=== PATIENT | female | born 1960 | race African-American/Black ===

== ENCOUNTER 2018-11-27 08:59 | Inpatient (IN) | payer OTHER ==
[~2018-11-27] VITALS: Ht 152.4 cm; Wt 42.2 kg
[2018-11-27] VITALS (13 sets, daily range): BP systolic 137–185; BP diastolic 94–116
[2018-11-27] MEDS ORDERED: IV NORMAL SALINE 1000ML BAG 1,000 ML IV SCH ×2 (09:04→10:16)
[2018-11-27] MEDS ORDERED: ACETAMINOPHEN 650 MG SUPP.RECT. PR ONE (09:15)
[2018-11-27] MEDS ORDERED: IPRATRPIUM/ALBUTEROL 0.5/2.5MG 3 ML NEBU. NEB ONE (09:15)
[2018-11-27] MEDS ORDERED: methylPREDNISolone SOD SUCC PF 125 MG/2 ML VIAL. IV ONE (09:15)
[2018-11-27] MEDS ORDERED: IV NORMAL SALINE 1000ML BAG 1,000 ML IV ONE (09:15)
[2018-11-27 09:18] LABS: BASO # 0.1 x10^3/uL (0.0-0.2); BASO % 1 % (0-3); EOS % 0 % (0-3); HEMOGLOBIN 14.8 g/dL (12.0-15.5); LYMPH % 5 % (24-48); MEAN CORPUSCULAR HEMOGLOBIN 27 pg (25-35); MEAN CORPUSCULAR HGB CONC 33 g/dL (31-37); MEAN CORPUSCULAR VOLUME 82 fL (79-100); MONO # 0.8 x10^3/uL (0.0-1.1); MONO % 4 % (0-9); NEUT # 17.2 x10^3/uL (1.8-7.7); NEUT % 90 % (31-73); PLATELET COUNT 286 x10^3/uL (140-400); RED BLOOD COUNT 5.48 x10^6/uL (3.50-5.40); RED CELL DISTRIBUTION WIDTH 14.5 % (11.5-14.5); WHITE BLOOD COUNT 19.1 x10^3/uL (4.0-11.0)
[2018-11-27 09:21] LABS: BILIRUBIN,URINE NEGATIVE (NEG); CLARITY,URINE CLEAR; COLOR,URINE YELLOW; NITRITE,URINE NEGATIVE (NEG); PH,URINE 5.5; PROTEIN,URINE >=300 mg/dL (NEG-TRACE)
[2018-11-27 09:28] LABS: PROTHROMBIN TIME PATIENT 14.2 SEC (11.7-14.0)
[2018-11-27] MEDS ORDERED: VANCOMYCIN 1GM IVPB FOR OMNI 250 ML IV ONE (09:30)
[2018-11-27] MEDS ORDERED: PIPERACILLIN/TAZOBACTAM 3.375 GM in IV NORMAL SALINE 50ML 50 ML IV ONE (09:30)
[2018-11-27 09:31] LABS: CALCIUM 10.3 mg/dL (8.5-10.1); CREATININE 2.4 mg/dL (0.6-1.0); GFR 20.7
[2018-11-27 09:32] LABS: BASE EXCESS ABG -7 mmol/L (-3-3); CORRECTED PCO2 ABG 33 mmHg; CORRECTED PH ABG 7.34; CORRECTED PO2 ABG 113 mmHg; HCO3 ABG 16 mmol/L (21-28); PCO2 ABG 27 mmHg (35-46); PO2 ABG 87 mmHg (65-108); SAT O2 ABG 96 % (92-99)
[2018-11-27 09:33] LABS: FIO2 ABG 100%
[2018-11-27 09:38] LABS: ALBUMIN 3.7 g/dL (3.4-5.0); ALBUMIN/GLOBULIN RATIO 0.8 (1.0-1.7); TOTAL BILIRUBIN 0.5 mg/dL (0.2-1.0); TOTAL PROTEIN 8.4 g/dL (6.4-8.2)
[2018-11-27 09:42] LABS: AMORPHOUS SEDIMENT,UR PRESENT /HPF; BACTERIA,URINE FEW /HPF (0-FEW); SQUAMOUS EPITHELIAL CELL,UR FEW /LPF
[2018-11-27 09:44] LABS: HYALINE CASTS, URINE FEW /HPF
--- NOTE | 2018-11-27 09:54 | PHYS DOC ---
Past Medical History Past Medical History: CVA, Depression, Diabetes-Type II, High Cholesterol, Hypertension Additional Past Medical Histor: Hemiplegia, Hemiparesis, dysphagia, Past Surgical History: Other Additional Past Surgical Histo: unknown Alcohol Use: None Drug Use: None Adult General Chief Complaint Chief Complaint: FEVER HPI HPI Patient is a 58 year old female with history of CVA and right-sided hemiplegia and bed and wheelchair-bound who presents via EMS with altered level of consciousness. longterm reported that patient was not acting like her usual even she is almost nonverbal patient. EMS reported that patient had O2 sat of 70s that improved with the starting centimeter facial mask to 90s. Patient also had temperature of 103 subaxillary by EMS and GCS of 6 and tachycardia. Patient is not able to give history. Review of Systems Review of Systems Unable to obtain because of medical condition and nonverbal patient Current Medications Current Medications Current Medications Medications (Trade) Dose Ordered Sig/Ángel Start Time Stop Time Status Last Admin Dose Admin Acetaminophen (Tylenol Supp) 650 mg 1X ONCE 11/27/18 09:15 11/27/18 09:22 DC 11/27/18 09:34 650 MG Albuterol/ Ipratropium (Duoneb) 3 ml 1X ONCE 11/27/18 09:15 11/27/18 09:22 DC 11/27/18 10:46 3 ML Methylprednisolone Sodium Succinate (SOLU-Medrol 125MG VIAL) 125 mg 1X ONCE 11/27/18 09:15 11/27/18 09:22 DC 11/27/18 09:34 125 MG Sodium Chloride 1,000 ml @ 1,000 mls/hr 1X ONCE 11/27/18 09:15 11/27/18 10:14 DC 11/27/18 09:27 1,000 MLS/HR Allergies Allergies Allergies Coded Allergies Type Severity Reaction Last Updated Verified No Known Drug Allergies 11/27/18 No Physical Exam Physical Exam Constitutional: Moderate distress, febrile, does not follow commands or opening her eyes. [] HENT: Normocephalic, atraumatic, gag reflex is present, dry oropharynx . Eyes: PERRLA, EOMI, conjunctiva normal, no discharge. [] Neck: Normal range of motion, no tenderness, supple, no stridor. [] Cardiovascular: Tachycardia, no murmur [] Lungs & Thorax: Respiratory distress with bilateral coarse breath sounds and rhonchi Abdomen: Bowel sounds normal, soft, no tenderness, no masses, no pulsatile masses. [] Extremities: Left upper and lower extremity hemiplegia Neurologic: Unresponsive, responded to painful stimuli, gag reflex is present. Psychologic: Unresponsive, unable to evaluate. Current Patient Data Vital Signs Vital Signs Date Time Temp Pulse Resp B/P (MAP) Pulse Ox O2 Delivery O2 Flow Rate FiO2 11/27/18 09:28 146 24 182/108 (132) 100 Venturi Mask 15.0 11/27/18 09:11 106.1 106.1 Lab Values Laboratory Tests Test 11/27/18 09:04 11/27/18 09:07 11/27/18 09:12 O2 Saturation 96 % (92-99) Arterial Blood pH 7.40 (7.35-7.45) Arterial Blood pH (Temp corrected) 7.34 Arterial Blood pCO2 at Patient Temp 27 mmHg (35-46) L Arterial Blood pCO2 (Temp correct) 33 mmHg Arterial Blood pO2 at Patient Temp 87 mmHg (65-108) Arterial Blood pO2 (Temp corrected) 113 mmHg Arterial Blood HCO3 16 mmol/L (21-28) L Arterial Blood Base Excess -7 mmol/L (-3-3) L FiO2 100% White Blood Count 19.1 x10^3/uL (4.0-11.0) H Red Blood Count 5.48 x10^6/uL (3.50-5.40) H Hemoglobin 14.8 g/dL (12.0-15.5) Hematocrit 45.0 % (36.0-47.0) Mean Corpuscular Volume 82 fL (79-100) Mean Corpuscular Hemoglobin 27 pg (25-35) Mean Corpuscular Hemoglobin Concent 33 g/dL (31-37) Red Cell Distribution Width 14.5 % (11.5-14.5) Platelet Count 286 x10^3/uL (140-400) Neutrophils (%) (Auto) 90 % (31-73) H Lymphocytes (%) (Auto) 5 % (24-48) L Monocytes (%) (Auto) 4 % (0-9) Eosinophils (%) (Auto) 0 % (0-3) Basophils (%) (Auto) 1 % (0-3) Neutrophils # (Auto) 17.2 x10^3/uL (1.8-7.7) H Lymphocytes # (Auto) 1.0 x10^3/uL (1.0-4.8) Monocytes # (Auto) 0.8 x10^3/uL (0.0-1.1) Eosinophils # (Auto) 0.0 x10^3/uL (0.0-0.7) Basophils # (Auto) 0.1 x10^3/uL (0.0-0.2) Segmented Neutrophils % 60 % (35-66) Band Neutrophils % 32 % (0-9) H Lymphocytes % 4 % (24-48) L Monocytes % 4 % (0-10) Platelet Estimate Adequate (ADEQUATE) Large Platelets Few Ovalocytes Few Prothrombin Time 14.2 SEC (11.7-14.0) H Prothrombin Time INR 1.1 (0.8-1.1) Sodium Level 142 mmol/L (136-145) Potassium Level 4.0 mmol/L (3.5-5.1) Chloride Level 103 mmol/L (98-107) Carbon Dioxide Level 20 mmol/L (21-32) L Anion Gap 19 (6-14) H Blood Urea Nitrogen 22 mg/dL (7-20) H Creatinine 2.4 mg/dL (0.6-1.0) H Estimated GFR (Cockcroft-Gault) 20.7 BUN/Creatinine Ratio 9 (6-20) Glucose Level 239 mg/dL (70-99) H Lactic Acid Level 10.0 mmol/L (0.4-2.0) *H Calcium Level 10.3 mg/dL (8.5-10.1) H Magnesium Level 2.0 mg/dL (1.8-2.4) Total Bilirubin 0.5 mg/dL (0.2-1.0) Aspartate Amino Transferase (AST) 40 U/L (15-37) H Alanine Aminotransferase (ALT) 26 U/L (14-59) Alkaline Phosphatase 97 U/L (46-116) Creatine Kinase 607 U/L (26-192) H Troponin I Quantitative 4.148 ng/mL (0.000-0.055) ER-Raz-W-Type Natriuretic Peptide 94898 pg/mL (0-124) H Total Protein 8.4 g/dL (6.4-8.2) H Albumin 3.7 g/dL (3.4-5.0) Albumin/Globulin Ratio 0.8 (1.0-1.7) L Lipase 323 U/L (73-393) Urine Collection Type U cath Urine Color Yellow Urine Clarity Clear Urine pH 5.5 Urine Specific [place] 1.020 Urine Protein >=300 mg/dL (NEG-TRACE) Urine Glucose (UA) Negative mg/dL (NEG) Urine Ketones (Stick) Trace mg/dL (NEG) Urine Blood Large (NEG) Urine Nitrite Negative (NEG) Urine Bilirubin Negative (NEG) Urine Urobilinogen Dipstick 1.0 mg/dL (0.2 mg/dL) Urine Leukocyte Esterase Negative (NEG) Urine RBC 11-20 /HPF (0-2) Urine WBC 1-4 /HPF (0-4) Urine Squamous Epithelial Cells Few /LPF Urine Renal Epithelial Cells Few /LPF Urine Amorphous Sediment Present /HPF Urine Bacteria Few /HPF (0-FEW) Urine Hyaline Casts Few /HPF Urine Mucus Mod /LPF Laboratory Tests 11/27/18 09:07 Laboratory Tests 11/27/18 09:07 EKG EKG EKG interpreted by me. EKG at 0901 showed sinus tachycardia at rate of 147, left atrial abnormality, abnormal left axis deviation, LVH, Q waves in inferior leads, no acute ST and T-wave abnormalities Radiology/Procedures Radiology/Procedures [][facility] [address], [place] [id number] IMAGING REPORT Signed PATIENT: SALUD SEPULVEDA RACCOUNT: [id number] : 1960 LOCATION: [facility] ICU AGE: 58 SEX: F EXAM STATUS: ADM IN ORD. PHYSICIAN: RYAN FLORES MD REASON: altered level of consciousness, hypoxia PROCEDURE: PORTABLE CHEST 1V Examination: PORTABLE CHEST 1V History: Altered level consciousness, hypoxia Comparison/Correlation: None Findings: Portable supine frontal view chest was obtained. Heart size is borderline to slightly enlarged. Pulmonary vasculature is borderline. Left perihilar interstitial edema or possibly infiltrate noted. Right-sided aortic arch is evident. Bony structures are intact. Impression: Borderline perivascular congestion. Left. Hilar vascular congestion with interstitial edema or infiltrates. Consider follow-up two-view chest x-ray exam for further assessment. Right-sided aortic arch. Electronically signed by: Naren Noel MD (11/27/2018 10:10 AM) [facility] DICTATED and SIGNED BY: NAREN NOEL MD DATE: 11/27/18 1010 Course & Med Decision Making Course & Med Decision Making Pertinent Labs and Imaging studies reviewed. (See chart for details) Evaluation of patient in ER showed 58-year-old female patient with history of right-sided hemiaplasia after CVA and bed ridden condition brought in by EMS because of altered level of consciousness and tachypnea and tachycardia and fever. Patient had rectal temperature of 106 and tachycardia respiratory distress. Patient had gag reflex. She treated for sepsis with IV fluid and antibiotic after obtaining blood cultures. Lactic STD. 10. Patient had leukocytosis and chest x-ray showed pneumonia. Patient had elevation of troponin to 4.[address] Reza on-call final inspector paper was consulted at 1000 and presented to ER and evaluated the patient. Patient had blood pressure of 200 at arrival to ER that gradually decreased to approximately 140 and 1 dose of labetalol was given at the time of transfer to ICU. CT of head was requested and is pending. After obtaining ABG the patient was started on a venturi mask. Patient requiring admission for further evaluation and treatment. Discussed with Dr. Moseley who is in agreement with admission. Discussed findings and plan with patient and family, who acknowledge understanding and agreement. Dragon Disclaimer Dragon Disclaimer This electronic medical record was generated, in whole or in part, using a voice recognition dictation system. Departure Departure Impression: Primary Impression: Severe sepsis Additional Impressions: NSTEMI (non-ST elevated myocardial infarction) Heart failure Renal insufficiency Altered level of consciousness Hypoxia HCAP (healthcare-associated pneumonia) Uncontrolled diabetes mellitus Hypercalcemia History of CVA (cerebrovascular accident) Right hemiplegia Disposition: ADMITTED INPATIENT (at 0 951) Admitting Physician: NIMA (Dr. Moseley accepted admission at 0 9:15) Condition: GUARDED Referrals: SAYRA RANGEL MD (PCP) Critical Care Time Critical care time was 90 minutes exclusive of procedures. Date and Time of Reassessment Date: Nov 27, 2018 Time: 10:27 Fluid Challenge Is the fluid challenge complet: Yes IBW Target Volume Used: Yes BMI > 30: No Vital Signs Vital Signs: Vital Signs Date Time Temp Pulse Resp B/P (MAP) Pulse Ox O2 Delivery O2 Flow Rate FiO2 11/27/18 09:28 146 24 182/108 (132) 100 Venturi Mask 15.0 11/27/18 09:11 106.1 106.1 Temperature Source: Rectal (102.6) Cardiovascular Pulse Rhythm: Regular Heart: No murmurs noted Lung Sounds Breath Sounds: Coarse, Diminished Capillary Refil Capillary Refill: Lt Hand > 3 seconds Peripheral Pulse Pulse Location: Radial Pulse Strength: Normal (2+) Pulse Assessment Method: NIBP The HEART Score for CP Pts HEART Score for Chest Pain: HEART Score for Chest Pain Response (Comments) Value ECG Nonspecific Repolarizatio 1 Age >45 - < 65 1 Risk Factors >3 Risk Factors or Hx CAD 2 Troponin >3 x Normal Limit 2 Total 6 Risk Factors: Risk Factors: DM, Current or recent (<one month) smoker, HTN, HLP, family history of CAD, obesity. Risk Scores: Score 0 - 3: 2.5% MACE over next 6 weeks - Discharge Home Score 4 - 6: 20.3% MACE over next 6 weeks - Admit for Clinical Observation Score 7 - 10: 72.7% MACE over next 6 weeks - Early Invasive Strategies Problem Qualifiers Additional Impressions: Heart failure Heart failure type: unspecified Heart failure chronicity: unspecified Qualified Codes: I50.9 - Heart failure, unspecified Uncontrolled diabetes mellitus Diabetes mellitus type: other specified (including KAYE) Glycemic state: with hyperglycemia Qualified Codes: E13.65 - Other specified diabetes mellitus with hyperglycemia RYAN FLORES MD Nov 27, 2018 09:54
[2018-11-27] MEDS ORDERED: ASPIRIN 600 MG PR STA (10:03)
[2018-11-27 10:08] LABS: % BANDS 32 % (0-9); % LYMPHS 4 % (24-48); % MONOS 4 % (0-10); % SEGS 60 % (35-66); PLT ESTIMATE ADEQUATE (ADEQUATE)
[2018-11-27 10:10] LABS: OVALOCYTES FEW
--- NOTE | 2018-11-27 10:13 | RAD ---
Examination: PORTABLE CHEST 1V History: Altered level consciousness, hypoxia Comparison/Correlation: None Findings: Portable supine frontal view chest was obtained. Heart size is borderline to slightly enlarged. Pulmonary vasculature is borderline. Left perihilar interstitial edema or possibly infiltrate noted. Right-sided aortic arch is evident. Bony structures are intact. Impression: Borderline perivascular congestion. Left. Hilar vascular congestion with interstitial edema or infiltrates. Consider follow-up two-view chest x-ray exam for further assessment. Right-sided aortic arch. Electronically signed by: Naren Diana MD (11/27/2018 10:10 AM) [facility]
[2018-11-27 10:14] LABS: INFLUENZA A PATIENT NEGATIVE (NEGATIVE); INFLUENZA B PATIENT NEGATIVE (NEGATIVE)
--- NOTE | 2018-11-27 10:30 | PDOC1 ---
History and Physical Date of Admission Date of Admission DATE: 11/27/18 TIME: 10:29 Identification/Chief Complaint Chief Complaint PLS REFER TO MY FULL H and P ON NEXT NOTE Current Problem List Problem List Problems Medical Problems: (1) NSTEMI (non-ST elevated myocardial infarction) Status: Acute (2) Sepsis Status: Acute Current Medications Current Medications Current Medications Sodium Chloride 1,000 ml @ 1,000 mls/hr Q1H IV Last administered on 11/27/18at 09:27; Start 11/27/18 at 09:04; Stop 11/27/18 at 10:03; Status DC Albuterol/ Ipratropium (Duoneb) 3 ml 1X ONCE NEB ; Start 11/27/18 at 09:15; Stop 11/27/18 at 09:22; Status DC Methylprednisolone Sodium Succinate (SOLU-Medrol 125MG VIAL) 125 mg 1X ONCE IV Last administered on 11/27/18at 09:34; Start 11/27/18 at 09:15; Stop 11/27/18 at 09:22; Status DC Sodium Chloride 1,000 ml @ 1,000 mls/hr 1X ONCE IV Last administered on 11/27/18at 09:27; Start 11/27/18 at 09:15; Stop 11/27/18 at 10:14; Status DC Acetaminophen (Tylenol Supp) 650 mg 1X ONCE NC Last administered on 11/27/18at 09:34; Start 11/27/18 at 09:15; Stop 11/27/18 at 09:22; Status DC Piperacillin Sod/ Tazobactam Sod 3.375 gm/Sodium Chloride 50 ml @ 100 mls/hr 1X ONCE IV Last administered on 11/27/18at 09:46; Start 11/27/18 at 09:30; Stop 11/27/18 at 09:59; Status DC Vancomycin HCl 250 ml @ 250 mls/hr 1X ONCE IV Last administered on 11/27/18at 10:17; Start 11/27/18 at 09:30; Stop 11/27/18 at 10:29 Aspirin (Aspirin Rectal Supp) 600 mg 1X STAT NC Last administered on 11/27/18at 10:17; Start 11/27/18 at 10:03; Stop 11/27/18 at 10:06; Status DC Sodium Chloride 1,000 ml @ 150 mls/hr Q6H40M IV ; Start 11/27/18 at 10:16; Stop 11/28/18 at 10:15 Allergies Allergies: Coded Allergies: No Known Drug Allergies (Unverified , 11/27/18) Vitals Vitals Vital Signs Date Time Temp Pulse Resp B/P (MAP) Pulse Ox O2 Delivery O2 Flow Rate FiO2 11/27/18 10:21 102.6 102.6 11/27/18 09:59 136 24 206/110 (142) 99 Venturi Mask 15.0 Labs Labs Laboratory Tests Test 11/27/18 09:04 11/27/18 09:07 11/27/18 09:12 11/27/18 09:39 O2 Saturation 96 % (92-99) Arterial Blood pH 7.40 (7.35-7.45) Arterial Blood pH (Temp corrected) 7.34 Arterial Blood pCO2 at Patient Temp 27 mmHg (35-46) Arterial Blood pCO2 (Temp correct) 33 mmHg Arterial Blood pO2 at Patient Temp 87 mmHg (65-108) Arterial Blood pO2 (Temp corrected) 113 mmHg Arterial Blood HCO3 16 mmol/L (21-28) Arterial Blood Base Excess -7 mmol/L (-3-3) FiO2 100% White Blood Count 19.1 x10^3/uL (4.0-11.0) Red Blood Count 5.48 x10^6/uL (3.50-5.40) Hemoglobin 14.8 g/dL (12.0-15.5) Hematocrit 45.0 % (36.0-47.0) Mean Corpuscular Volume 82 fL (79-100) Mean Corpuscular Hemoglobin 27 pg (25-35) Mean Corpuscular Hemoglobin Concent 33 g/dL (31-37) Red Cell Distribution Width 14.5 % (11.5-14.5) Platelet Count 286 x10^3/uL (140-400) Neutrophils (%) (Auto) 90 % (31-73) Lymphocytes (%) (Auto) 5 % (24-48) Monocytes (%) (Auto) 4 % (0-9) Eosinophils (%) (Auto) 0 % (0-3) Basophils (%) (Auto) 1 % (0-3) Neutrophils # (Auto) 17.2 x10^3/uL (1.8-7.7) Lymphocytes # (Auto) 1.0 x10^3/uL (1.0-4.8) Monocytes # (Auto) 0.8 x10^3/uL (0.0-1.1) Eosinophils # (Auto) 0.0 x10^3/uL (0.0-0.7) Basophils # (Auto) 0.1 x10^3/uL (0.0-0.2) Segmented Neutrophils % 60 % (35-66) Band Neutrophils % 32 % (0-9) Lymphocytes % 4 % (24-48) Monocytes % 4 % (0-10) Platelet Estimate Adequate (ADEQUATE) Large Platelets Few Ovalocytes Few Prothrombin Time 14.2 SEC (11.7-14.0) Prothromb Time International Ratio 1.1 (0.8-1.1) Sodium Level 142 mmol/L (136-145) Potassium Level 4.0 mmol/L (3.5-5.1) Chloride Level 103 mmol/L (98-107) Carbon Dioxide Level 20 mmol/L (21-32) Anion Gap 19 (6-14) Blood Urea Nitrogen 22 mg/dL (7-20) Creatinine 2.4 mg/dL (0.6-1.0) Estimated GFR (Cockcroft-Gault) 20.7 BUN/Creatinine Ratio 9 (6-20) Glucose Level 239 mg/dL (70-99) Lactic Acid Level 10.0 mmol/L (0.4-2.0) Calcium Level 10.3 mg/dL (8.5-10.1) Magnesium Level 2.0 mg/dL (1.8-2.4) Total Bilirubin 0.5 mg/dL (0.2-1.0) Aspartate Amino Transf (AST/SGOT) 40 U/L (15-37) Alanine Aminotransferase (ALT/SGPT) 26 U/L (14-59) Alkaline Phosphatase 97 U/L (46-116) Creatine Kinase 607 U/L (26-192) Troponin I Quantitative 4.148 ng/mL (0.000-0.055) GS-Tvi-A-Type Natriuretic Peptide 38235 pg/mL (0-124) Total Protein 8.4 g/dL (6.4-8.2) Albumin 3.7 g/dL (3.4-5.0) Albumin/Globulin Ratio 0.8 (1.0-1.7) Lipase 323 U/L (73-393) Urine Collection Type U cath Urine Color Yellow Urine Clarity Clear Urine pH 5.5 Urine Specific [place] 1.020 Urine Protein >=300 mg/dL (NEG-TRACE) Urine Glucose (UA) Negative mg/dL (NEG) Urine Ketones (Stick) Trace mg/dL (NEG) Urine Blood Large (NEG) Urine Nitrite Negative (NEG) Urine Bilirubin Negative (NEG) Urine Urobilinogen Dipstick 1.0 mg/dL (0.2 mg/dL) Urine Leukocyte Esterase Negative (NEG) Urine RBC 11-20 /HPF (0-2) Urine WBC 1-4 /HPF (0-4) Urine Squamous Epithelial Cells Few /LPF Urine Renal Epithelial Cells Few /LPF Urine Amorphous Sediment Present /HPF Urine Bacteria Few /HPF (0-FEW) Urine Hyaline Casts Few /HPF Urine Mucus Mod /LPF Influenza Type A Antigen Negative (NEGATIVE) Influenza Type B Antigen Negative (NEGATIVE) Laboratory Tests Test 11/27/18 09:04 11/27/18 09:07 11/27/18 09:12 11/27/18 09:39 O2 Saturation 96 % (92-99) Arterial Blood pH 7.40 (7.35-7.45) Arterial Blood pH (Temp corrected) 7.34 Arterial Blood pCO2 at Patient Temp 27 mmHg (35-46) Arterial Blood pCO2 (Temp correct) 33 mmHg Arterial Blood pO2 at Patient Temp 87 mmHg (65-108) Arterial Blood pO2 (Temp corrected) 113 mmHg Arterial Blood HCO3 16 mmol/L (21-28) Arterial Blood Base Excess -7 mmol/L (-3-3) FiO2 100% White Blood Count 19.1 x10^3/uL (4.0-11.0) Red Blood Count 5.48 x10^6/uL (3.50-5.40) Hemoglobin 14.8 g/dL (12.0-15.5) Hematocrit 45.0 % (36.0-47.0) Mean Corpuscular Volume 82 fL (79-100) Mean Corpuscular Hemoglobin 27 pg (25-35) Mean Corpuscular Hemoglobin Concent 33 g/dL (31-37) Red Cell Distribution Width 14.5 % (11.5-14.5) Platelet Count 286 x10^3/uL (140-400) Neutrophils (%) (Auto) 90 % (31-73) Lymphocytes (%) (Auto) 5 % (24-48) Monocytes (%) (Auto) 4 % (0-9) Eosinophils (%) (Auto) 0 % (0-3) Basophils (%) (Auto) 1 % (0-3) Neutrophils # (Auto) 17.2 x10^3/uL (1.8-7.7) Lymphocytes # (Auto) 1.0 x10^3/uL (1.0-4.8) Monocytes # (Auto) 0.8 x10^3/uL (0.0-1.1) Eosinophils # (Auto) 0.0 x10^3/uL (0.0-0.7) Basophils # (Auto) 0.1 x10^3/uL (0.0-0.2) Segmented Neutrophils % 60 % (35-66) Band Neutrophils % 32 % (0-9) Lymphocytes % 4 % (24-48) Monocytes % 4 % (0-10) Platelet Estimate Adequate (ADEQUATE) Large Platelets Few Ovalocytes Few Prothrombin Time 14.2 SEC (11.7-14.0) Prothromb Time International Ratio 1.1 (0.8-1.1) Sodium Level 142 mmol/L (136-145) Potassium Level 4.0 mmol/L (3.5-5.1) Chloride Level 103 mmol/L (98-107) Carbon Dioxide Level 20 mmol/L (21-32) Anion Gap 19 (6-14) Blood Urea Nitrogen 22 mg/dL (7-20) Creatinine 2.4 mg/dL (0.6-1.0) Estimated GFR (Cockcroft-Gault) 20.7 BUN/Creatinine Ratio 9 (6-20) Glucose Level 239 mg/dL (70-99) Lactic Acid Level 10.0 mmol/L (0.4-2.0) Calcium Level 10.3 mg/dL (8.5-10.1) Magnesium Level 2.0 mg/dL (1.8-2.4) Total Bilirubin 0.5 mg/dL (0.2-1.0) Aspartate Amino Transf (AST/SGOT) 40 U/L (15-37) Alanine Aminotransferase (ALT/SGPT) 26 U/L (14-59) Alkaline Phosphatase 97 U/L (46-116) Creatine Kinase 607 U/L (26-192) Troponin I Quantitative 4.148 ng/mL (0.000-0.055) CW-Ecp-L-Type Natriuretic Peptide 37809 pg/mL (0-124) Total Protein 8.4 g/dL (6.4-8.2) Albumin 3.7 g/dL (3.4-5.0) Albumin/Globulin Ratio 0.8 (1.0-1.7) Lipase 323 U/L (73-393) Urine Collection Type U cath Urine Color Yellow Urine Clarity Clear Urine pH 5.5 Urine Specific [place] 1.020 Urine Protein >=300 mg/dL (NEG-TRACE) Urine Glucose (UA) Negative mg/dL (NEG) Urine Ketones (Stick) Trace mg/dL (NEG) Urine Blood Large (NEG) Urine Nitrite Negative (NEG) Urine Bilirubin Negative (NEG) Urine Urobilinogen Dipstick 1.0 mg/dL (0.2 mg/dL) Urine Leukocyte Esterase Negative (NEG) Urine RBC 11-20 /HPF (0-2) Urine WBC 1-4 /HPF (0-4) Urine Squamous Epithelial Cells Few /LPF Urine Renal Epithelial Cells Few /LPF Urine Amorphous Sediment Present /HPF Urine Bacteria Few /HPF (0-FEW) Urine Hyaline Casts Few /HPF Urine Mucus Mod /LPF Influenza Type A Antigen Negative (NEGATIVE) Influenza Type B Antigen Negative (NEGATIVE) JENNY BUSH MD Nov 27, 2018 10:29
[2018-11-27] MEDS ORDERED: LABETALOL 20 MG/4 ML DISP.SYRIN. IVP ONE (11:00)
[2018-11-27] MEDS ORDERED: ACETAMINOPHEN 325 MG SUPP.RECT. PR PRN (11:45)
[2018-11-27] MEDS ORDERED: ONDANSETRON PF 4 MG/2 ML VIAL. IV PRN (11:45)
[2018-11-27] MEDS ORDERED: MORPHINE SULFATE 2 MG/ML VIAL. IV PRN (11:45)
[2018-11-27] MEDS ORDERED: ACETAMINOPHEN 500 MG TABLET PO PRN (11:45)
[2018-11-27] MEDS ORDERED: PIP/TAZO PER PHARMACY MC PRN (11:45)
--- NOTE | 2018-11-27 11:53 | PDOC1 ---
History and Physical Date of Admission Date of Admission DATE: 11/27/18 TIME: 11:44 Identification/Chief Complaint Chief Complaint lethargy at [facility] Source Source: Caregiver, Chart review, Patient History of Present Illness History of Present Illness 58-year-old [place] female who has been an [facility] resident for 6-7 months, has CVA with significant deficit, right hand contracture, but bedbound, functional quadriplegia but is able to eat with her left hand on good days. On mechanical soft and thin liquid at [facility]. NO sacral wounds. Family has noticed more lethargy at SNU, they actually wish for her to be brought in last night but now was brought in with a GCS 6, maintaining airway with a gag but is minimally responsive and not opening eyes. Usually she would recognize her daughter. Dtr Reiterates a full code. I get history of CVA with CT head pending. UA still pending the chest x-ray shows pulmonary congestion. BNP 11K. They think she might have aspirated. She has crackles on both lung cao, auscultation and hypoxemic 70% on arrival. Much better on nonrebreather. Flu pending, WBC 19.a dose of Vanco and Zosyn. Predominance of neutrophils. Systolic BP 180s to 220s. On IV fluid 150 mL an hour for sepsis protocol. We will admit to ICU. Lactate is 10. The rest of the labs still rolling namely BMP, CAT scan of the head and UA with flu test ordered by ER. I will continue vent Zosyn with ID consult. Recheck calcitonin tomorrow. Troponin is 4 with no known personal history of CAD, cards consulted and we will trend every 6 hours the trop. I have discussed my plan with the family at bedside and seen in ER #1 We'll make nothing by mouth, speech eval once more awake. Full code. Follow blood cultures. Insert Wiseman and maintained. Creatinine 2.4 we will consult renal given critical nature of the admission. If anytime desats further or not maintaining airway might need to be intubated. Daughter relays to me history of PEG post CVA �3-they do not recall what blood thinners she is on-I'm still waiting on home meds She had a PEG one time used for a couple months and was reverted once she started eating Further recs pending course Past Medical History Cardiovascular: CHF, HTN CENTRAL NERVOUS SYSTEM: CVA Past Surgical History Past Surgical History: Other (unknown) Family History Family History: Family History Unknown Social History Smoke: No ALCOHOL: none Drugs: None Current Problem List Problem List Problems Medical Problems: (1) Altered level of consciousness Status: Acute (2) HCAP (healthcare-associated pneumonia) Status: Acute (3) Heart failure Status: Acute (4) History of CVA (cerebrovascular accident) Status: Acute (5) Hypercalcemia Status: Acute (6) Hypoxia Status: Acute (7) NSTEMI (non-ST elevated myocardial infarction) Status: Acute (8) Renal insufficiency Status: Acute (9) Right hemiplegia Status: Acute (10) Sepsis Status: Acute (11) Severe sepsis Status: Acute (12) Uncontrolled diabetes mellitus Status: Acute Current Medications Current Medications Current Medications Sodium Chloride 1,000 ml @ 1,000 mls/hr Q1H IV Last administered on 11/27/18at 09:27; Start 11/27/18 at 09:04; Stop 11/27/18 at 10:03; Status DC Albuterol/ Ipratropium (Duoneb) 3 ml 1X ONCE NEB Last administered on 11/27/18 at 10:46; Start 11/27/18 at 09:15; Stop 11/27/18 at 09:22; Status DC Methylprednisolone Sodium Succinate (SOLU-Medrol 125MG VIAL) 125 mg 1X ONCE IV Last administered on 11/27/18at 09:34; Start 11/27/18 at 09:15; Stop 11/27/18 at 09:22; Status DC Sodium Chloride 1,000 ml @ 1,000 mls/hr 1X ONCE IV Last administered on 11/27/18at 09:27; Start 11/27/18 at 09:15; Stop 11/27/18 at 10:14; Status DC Acetaminophen (Tylenol Supp) 650 mg 1X ONCE NM Last administered on 11/27/18at 09:34; Start 11/27/18 at 09:15; Stop 11/27/18 at 09:22; Status DC Piperacillin Sod/ Tazobactam Sod 3.375 gm/Sodium Chloride 50 ml @ 100 mls/hr 1X ONCE IV Last administered on 11/27/18at 09:46; Start 11/27/18 at 09:30; Stop 11/27/18 at 09:59; Status DC Vancomycin HCl 250 ml @ 250 mls/hr 1X ONCE IV Last administered on 11/27/18at 10:17; Start 11/27/18 at 09:30; Stop 11/27/18 at 10:29; Status DC Aspirin (Aspirin Rectal Supp) 600 mg 1X STAT NM Last administered on 11/27/18at 10:17; Start 11/27/18 at 10:03; Stop 11/27/18 at 10:06; Status DC Sodium Chloride 1,000 ml @ 150 mls/hr Q6H40M IV ; Start 11/27/18 at 10:16; Stop 11/27/18 at 11:43; Status DC Labetalol HCl (Normodyne Iv Push) 10 mg 1X ONCE IVP Last administered on 11/27/18at 11:02; Start 11/27/18 at 11:00; Stop 11/27/18 at 11:01; Status DC Amino Acids/ Glycerin/ Electrolytes 1,000 ml @ 100 mls/hr Q10H IV ; Start 11/27/18 at 11:45; Status UNV Vancomycin HCl (Vanco Per Pharmacy) 1 each PRN DAILY PRN MC SEE COMMENTS; Start 11/27/18 at 11:45; Status UNV Allergies Allergies: Coded Allergies: No Known Drug Allergies (Unverified , 11/27/18) ROS Review of System non verbal to me Physical Exam General: mild distress, Other (NRB, no tachypneia, no retractions) Lungs: Normal air movement, Other (crackles) Heart: S1S2, RRR, no thrills, no rubs, no gallops Breasts: Normal, Rt breast nml w/o mass, Lt breast nml w/o mass, Nipples normal Abdomen: Normal bowel sounds, Soft, No tenderness, No hepatosplenomegaly, No masses PELVIC: Nml ext genitalia Extremities: No clubbing, Other (chronci rt hand contracture ) Skin: Other (senile skin turgor) Vitals Vitals Vital Signs Date Time Temp Pulse Resp B/P (MAP) Pulse Ox O2 Delivery O2 Flow Rate FiO2 11/27/18 11:14 118 22 165/104 (124) 99 Venturi Mask 15.0 11/27/18 10:21 102.6 102.6 Labs Labs Laboratory Tests Test 11/27/18 09:04 11/27/18 09:07 11/27/18 09:12 11/27/18 09:39 O2 Saturation 96 % (92-99) Arterial Blood pH 7.40 (7.35-7.45) Arterial Blood pH (Temp corrected) 7.34 Arterial Blood pCO2 at Patient Temp 27 mmHg (35-46) Arterial Blood pCO2 (Temp correct) 33 mmHg Arterial Blood pO2 at Patient Temp 87 mmHg (65-108) Arterial Blood pO2 (Temp corrected) 113 mmHg Arterial Blood HCO3 16 mmol/L (21-28) Arterial Blood Base Excess -7 mmol/L (-3-3) FiO2 100% White Blood Count 19.1 x10^3/uL (4.0-11.0) Red Blood Count 5.48 x10^6/uL (3.50-5.40) Hemoglobin 14.8 g/dL (12.0-15.5) Hematocrit 45.0 % (36.0-47.0) Mean Corpuscular Volume 82 fL (79-100) Mean Corpuscular Hemoglobin 27 pg (25-35) Mean Corpuscular Hemoglobin Concent 33 g/dL (31-37) Red Cell Distribution Width 14.5 % (11.5-14.5) Platelet Count 286 x10^3/uL (140-400) Neutrophils (%) (Auto) 90 % (31-73) Lymphocytes (%) (Auto) 5 % (24-48) Monocytes (%) (Auto) 4 % (0-9) Eosinophils (%) (Auto) 0 % (0-3) Basophils (%) (Auto) 1 % (0-3) Neutrophils # (Auto) 17.2 x10^3/uL (1.8-7.7) Lymphocytes # (Auto) 1.0 x10^3/uL (1.0-4.8) Monocytes # (Auto) 0.8 x10^3/uL (0.0-1.1) Eosinophils # (Auto) 0.0 x10^3/uL (0.0-0.7) Basophils # (Auto) 0.1 x10^3/uL (0.0-0.2) Segmented Neutrophils % 60 % (35-66) Band Neutrophils % 32 % (0-9) Lymphocytes % 4 % (24-48) Monocytes % 4 % (0-10) Platelet Estimate Adequate (ADEQUATE) Large Platelets Few Ovalocytes Few Prothrombin Time 14.2 SEC (11.7-14.0) Prothromb Time International Ratio 1.1 (0.8-1.1) Sodium Level 142 mmol/L (136-145) Potassium Level 4.0 mmol/L (3.5-5.1) Chloride Level 103 mmol/L (98-107) Carbon Dioxide Level 20 mmol/L (21-32) Anion Gap 19 (6-14) Blood Urea Nitrogen 22 mg/dL (7-20) Creatinine 2.4 mg/dL (0.6-1.0) Estimated GFR (Cockcroft-Gault) 20.7 BUN/Creatinine Ratio 9 (6-20) Glucose Level 239 mg/dL (70-99) Lactic Acid Level 10.0 mmol/L (0.4-2.0) Calcium Level 10.3 mg/dL (8.5-10.1) Magnesium Level 2.0 mg/dL (1.8-2.4) Total Bilirubin 0.5 mg/dL (0.2-1.0) Aspartate Amino Transf (AST/SGOT) 40 U/L (15-37) Alanine Aminotransferase (ALT/SGPT) 26 U/L (14-59) Alkaline Phosphatase 97 U/L (46-116) Creatine Kinase 607 U/L (26-192) Troponin I Quantitative 4.148 ng/mL (0.000-0.055) HD-Zdk-C-Type Natriuretic Peptide 06483 pg/mL (0-124) Total Protein 8.4 g/dL (6.4-8.2) Albumin 3.7 g/dL (3.4-5.0) Albumin/Globulin Ratio 0.8 (1.0-1.7) Lipase 323 U/L (73-393) Urine Collection Type U cath Urine Color Yellow Urine Clarity Clear Urine pH 5.5 Urine Specific Ransom 1.020 Urine Protein >=300 mg/dL (NEG-TRACE) Urine Glucose (UA) Negative mg/dL (NEG) Urine Ketones (Stick) Trace mg/dL (NEG) Urine Blood Large (NEG) Urine Nitrite Negative (NEG) Urine Bilirubin Negative (NEG) Urine Urobilinogen Dipstick 1.0 mg/dL (0.2 mg/dL) Urine Leukocyte Esterase Negative (NEG) Urine RBC 11-20 /HPF (0-2) Urine WBC 1-4 /HPF (0-4) Urine Squamous Epithelial Cells Few /LPF Urine Renal Epithelial Cells Few /LPF Urine Amorphous Sediment Present /HPF Urine Bacteria Few /HPF (0-FEW) Urine Hyaline Casts Few /HPF Urine Mucus Mod /LPF Influenza Type A Antigen Negative (NEGATIVE) Influenza Type B Antigen Negative (NEGATIVE) Laboratory Tests Test 11/27/18 09:04 11/27/18 09:07 11/27/18 09:12 11/27/18 09:39 O2 Saturation 96 % (92-99) Arterial Blood pH 7.40 (7.35-7.45) Arterial Blood pH (Temp corrected) 7.34 Arterial Blood pCO2 at Patient Temp 27 mmHg (35-46) Arterial Blood pCO2 (Temp correct) 33 mmHg Arterial Blood pO2 at Patient Temp 87 mmHg (65-108) Arterial Blood pO2 (Temp corrected) 113 mmHg Arterial Blood HCO3 16 mmol/L (21-28) Arterial Blood Base Excess -7 mmol/L (-3-3) FiO2 100% White Blood Count 19.1 x10^3/uL (4.0-11.0) Red Blood Count 5.48 x10^6/uL (3.50-5.40) Hemoglobin 14.8 g/dL (12.0-15.5) Hematocrit 45.0 % (36.0-47.0) Mean Corpuscular Volume 82 fL (79-100) Mean Corpuscular Hemoglobin 27 pg (25-35) Mean Corpuscular Hemoglobin Concent 33 g/dL (31-37) Red Cell Distribution Width 14.5 % (11.5-14.5) Platelet Count 286 x10^3/uL (140-400) Neutrophils (%) (Auto) 90 % (31-73) Lymphocytes (%) (Auto) 5 % (24-48) Monocytes (%) (Auto) 4 % (0-9) Eosinophils (%) (Auto) 0 % (0-3) Basophils (%) (Auto) 1 % (0-3) Neutrophils # (Auto) 17.2 x10^3/uL (1.8-7.7) Lymphocytes # (Auto) 1.0 x10^3/uL (1.0-4.8) Monocytes # (Auto) 0.8 x10^3/uL (0.0-1.1) Eosinophils # (Auto) 0.0 x10^3/uL (0.0-0.7) Basophils # (Auto) 0.1 x10^3/uL (0.0-0.2) Segmented Neutrophils % 60 % (35-66) Band Neutrophils % 32 % (0-9) Lymphocytes % 4 % (24-48) Monocytes % 4 % (0-10) Platelet Estimate Adequate (ADEQUATE) Large Platelets Few Ovalocytes Few Prothrombin Time 14.2 SEC (11.7-14.0) Prothromb Time International Ratio 1.1 (0.8-1.1) Sodium Level 142 mmol/L (136-145) Potassium Level 4.0 mmol/L (3.5-5.1) Chloride Level 103 mmol/L (98-107) Carbon Dioxide Level 20 mmol/L (21-32) Anion Gap 19 (6-14) Blood Urea Nitrogen 22 mg/dL (7-20) Creatinine 2.4 mg/dL (0.6-1.0) Estimated GFR (Cockcroft-Gault) 20.7 BUN/Creatinine Ratio 9 (6-20) Glucose Level 239 mg/dL (70-99) Lactic Acid Level 10.0 mmol/L (0.4-2.0) Calcium Level 10.3 mg/dL (8.5-10.1) Magnesium Level 2.0 mg/dL (1.8-2.4) Total Bilirubin 0.5 mg/dL (0.2-1.0) Aspartate Amino Transf (AST/SGOT) 40 U/L (15-37) Alanine Aminotransferase (ALT/SGPT) 26 U/L (14-59) Alkaline Phosphatase 97 U/L (46-116) Creatine Kinase 607 U/L (26-192) Troponin I Quantitative 4.148 ng/mL (0.000-0.055) UZ-Gky-K-Type Natriuretic Peptide 93766 pg/mL (0-124) Total Protein 8.4 g/dL (6.4-8.2) Albumin 3.7 g/dL (3.4-5.0) Albumin/Globulin Ratio 0.8 (1.0-1.7) Lipase 323 U/L (73-393) Urine Collection Type U cath Urine Color Yellow Urine Clarity Clear Urine pH 5.5 Urine Specific Ransom 1.020 Urine Protein >=300 mg/dL (NEG-TRACE) Urine Glucose (UA) Negative mg/dL (NEG) Urine Ketones (Stick) Trace mg/dL (NEG) Urine Blood Large (NEG) Urine Nitrite Negative (NEG) Urine Bilirubin Negative (NEG) Urine Urobilinogen Dipstick 1.0 mg/dL (0.2 mg/dL) Urine Leukocyte Esterase Negative (NEG) Urine RBC 11-20 /HPF (0-2) Urine WBC 1-4 /HPF (0-4) Urine Squamous Epithelial Cells Few /LPF Urine Renal Epithelial Cells Few /LPF Urine Amorphous Sediment Present /HPF Urine Bacteria Few /HPF (0-FEW) Urine Hyaline Casts Few /HPF Urine Mucus Mod /LPF Influenza Type A Antigen Negative (NEGATIVE) Influenza Type B Antigen Negative (NEGATIVE) VTE Prophylaxis Ordered VTE Prophylaxis Devices: Yes VTE Pharmacological Prophylaxi: Yes Assessment/Plan Assessment/Plan Severe sepsis with AK I likely VMN-creatinine 2.4, LACTATE 10 LEukocytosis with predominance neutrophils sec to sepsis - UA pending, likely aspiration Aspiration pneumonitis/pneumonia versus CHF-she is on mechanical soft with thin liquids in SNU, has aspirated in the past-high risk of aspiration Previous indwelling PEG reverted after few months use 2010 History of CVA �3 with right hand contracture-her baseline is she can feed himself with the left hand or sometimes needs an aide, bed bound No sacral decubitus Functional quadriplegia Accel Hypertension, SBP 180s to 200s [facility] resident Full code HYpoxemic respiratory failure-sats 70% now on nonrebreather much better-if respiratory status worsens etc. we'll need to intubate as she is a full code but so far now holding Troponin 4-we'll trend, every 6 hours consult cardiology No personal history of CAD Plan ICU bed, trend troponin, recheck lactate and labs tomorrow - walsh culture ID consult VAC Zosyn per pharmacy consult cardiology and renal regarding that troponin of 4 and AK I creatinine 2.4 Avoid nephrotoxins Heparin subcutaneous for DVT prophylaxis PPI IV since nothing by mouth [facility] eval once more awake Turn every 2 hrs Nonrebreather versus other O2 supports-consult pulmonary regarding this hypoxemia and critical nature of her disease Full code Start ProcalAmine decrease IV fluid to 100 mL given BNP of 11,000 and thoughts of CHF on x-ray Her sodium is bordering 142, usually will get hypernatremic with prolonged nothing by mouth hence we'll do ProcalAmine which is a hypotonic solution Seen at ER #1, critical care 40 minutes cumulative JENNY BUSH MD Nov 27, 2018 11:53
[2018-11-27] MEDS: IPRATRPIUM/ALBUTEROL 0.5/2.5MG 3 ML NEBU. NEB SCH ×3 (12:00→19:43)
--- NOTE | 2018-11-27 12:01 | RAD ---
STUDY: CT head without contrast INDICATION: Altered level of consciousness. Hypoxia. COMPARISON: Most recent CT head from 12/06/2017 TECHNIQUE: Axial CT imaging through the head without the use of intravenous contrast. Sagittal and coronal reformats were obtained. FINDINGS: Acute parenchymal hematoma expanding the right more so than left aspect of the midbrain as well as expanding the roberto with hemorrhage extending up into the region of the right thalamus. Mass effect associated with this hemorrhage effaces a portion of the third ventricle as well as effaces the fourth ventricle and there is more pronounced dilatation of the lateral ventricles relative to the 2018 comparison study suggestive of developing hydrocephalus. Foci of hemorrhage are seen on the left aspect of the effaced fourth ventricle, image 10 series 2 though it is difficult to discern if this hemorrhage is within the parenchyma or within the ventricle itself. No acute hemorrhage seen elsewhere. Extensive low-attenuation throughout the bihemispheric subcortical/periventricular white matter as can be seen in the setting of advanced chronic microvascular ischemia. Sulcal crowding at the cerebral apex is not significantly different from the 2018 comparison. There is no midline shift. Redemonstrated remote bilateral cerebellar hemisphere infarcts as well as a prominent area of encephalomalacia at the high aspect of the left frontal lobe. Parenchymal volume loss as well as intracranial atherosclerotic calcifications. IMPRESSION: 1. Prominent acute parenchymal hematoma expanding the roberto, right greater than left aspect of the midbrain and extending to involve the right thalamus. Mass effect associated with this hemorrhage with effacement of the fourth more so than third ventricles and there is more pronounced dilatation of the lateral ventricular system relative to the 2018 comparison which is concerning for developing hydrocephalus. Smaller foci of hemorrhage along the left lateral aspect of the fourth ventricle may be parenchymal in location or could potentially be within the ventricular system. No acute intracranial hemorrhage seen elsewhere. The underlying cause of this hemorrhage is uncertain but the most likely consideration based on location would be spontaneous related to underlying hypertension. Hemorrhagic transformation of an infarct or hemorrhage within a mass would be considered less likely. Aneurysm rupture seems unlikely as well due to the parenchymal location. 2. Redemonstrated prominent areas of encephalomalacia involving both cerebellar hemispheres as well as the upper aspect of the left frontal lobe. White matter findings typical of severe chronic microvascular ischemic change. Intracranial atherosclerotic calcifications and parenchymal volume loss. FOR INTERNAL CODING PURPOSES RESULT CODE: (C) Critical findings were discussed with the ICU nurse. Leah Monson, on 11/27/2018 at 1145 hours. Electronically signed by: LUCINDA LISA MD (11/27/2018 11:58 AM) [facility]
[2018-11-27] MEDS: AMINO AC 3%/ELECTROLYTE/GLYCER 1,000 ML IV SCH ×2 (12:10→23:09)
--- NOTE | 2018-11-27 12:25 | PDOC2 ---
CONSULT Date of Consult Date of Consult DATE: 11/27/18 TIME: 12:24 Reason for Consult Reason for Consult: Non-STEMI Referring Physician Referring Physician: Dr. Moseley Identification/Chief Complaint Chief Complaint Lethargy Source Source: Chart review History of Present Illness Reason for Visit: 58-year-old female with multiple CVAs in the past and hemorrhagic stroke from uncontrolled hypertension, residing at [facility] last 6-7 months was transferred to [facility] for lethargy, decreasing responsiveness per family. Her troponin level was elevated prompting cardiology consult. No significant history can be obtained from patient. Review of medical record did not show any previous history of coronary artery disease. Past Medical History Cardiovascular: CHF, HTN CENTRAL NERVOUS SYSTEM: CVA Past Surgical History Past Surgical History: Other (unknown) Family History Family History: Family History Unknown Social History No ALCOHOL: none Drugs: None Current Problem List Problem List Problems Medical Problems: (1) Altered level of consciousness Status: Acute (2) HCAP (healthcare-associated pneumonia) Status: Acute (3) Heart failure Status: Acute (4) History of CVA (cerebrovascular accident) Status: Acute (5) Hypercalcemia Status: Acute (6) Hypoxia Status: Acute (7) NSTEMI (non-ST elevated myocardial infarction) Status: Acute (8) Renal insufficiency Status: Acute (9) Right hemiplegia Status: Acute (10) Sepsis Status: Acute (11) Severe sepsis Status: Acute (12) Uncontrolled diabetes mellitus Status: Acute Current Medications Current Medications Current Medications Sodium Chloride 1,000 ml @ 1,000 mls/hr Q1H IV Last administered on 11/27/18at 09:27; Start 11/27/18 at 09:04; Stop 11/27/18 at 10:03; Status DC Albuterol/ Ipratropium (Duoneb) 3 ml 1X ONCE NEB Last administered on 11/27/18at 10:46; Start 11/27/18 at 09:15; Stop 11/27/18 at 09:22; Status DC Methylprednisolone Sodium Succinate (SOLU-Medrol 125MG VIAL) 125 mg 1X ONCE IV Last administered on 11/27/18at 09:34; Start 11/27/18 at 09:15; Stop 11/27/18 at 09:22; Status DC Sodium Chloride 1,000 ml @ 1,000 mls/hr 1X ONCE IV Last administered on 11/27/18at 09:27; Start 11/27/18 at 09:15; Stop 11/27/18 at 10:14; Status DC Acetaminophen (Tylenol Supp) 650 mg 1X ONCE AR Last administered on 11/27/18at 09:34; Start 11/27/18 at 09:15; Stop 11/27/18 at 09:22; Status DC Piperacillin Sod/ Tazobactam Sod 3.375 gm/Sodium Chloride 50 ml @ 100 mls/hr 1X ONCE IV Last administered on 11/27/18at 09:46; Start 11/27/18 at 09:30; Stop 11/27/18 at 09:59; Status DC Vancomycin HCl 250 ml @ 250 mls/hr 1X ONCE IV Last administered on 11/27/18at 10:17; Start 11/27/18 at 09:30; Stop 11/27/18 at 10:29; Status DC Aspirin (Aspirin Rectal Supp) 600 mg 1X STAT AR Last administered on 11/27/18at 10:17; Start 11/27/18 at 10:03; Stop 11/27/18 at 10:06; Status DC Sodium Chloride 1,000 ml @ 150 mls/hr Q6H40M IV ; Start 11/27/18 at 10:16; Stop 11/27/18 at 11:43; Status DC Labetalol HCl (Normodyne Iv Push) 10 mg 1X ONCE IVP Last administered on 11/27/18at 11:02; Start 11/27/18 at 11:00; Stop 11/27/18 at 11:01; Status DC Amino Acids/ Glycerin/ Electrolytes 1,000 ml @ 100 mls/hr Q10H IV Last admini stered on 11/27/18at 12:10; Start 11/27/18 at 12:30 Vancomycin HCl (Vanco Per Pharmacy) 1 each PRN DAILY PRN MC SEE COMMENTS; S tart 11/27/18 at 11:45 Piperacillin Sod/ Tazobactam Sod (Zosyn Per Pharmacy) 1 each PRN DAILY PRN MC SEE COMMENTS; Start 11/27/18 at 11:45 Pantoprazole Sodium (PROTONIX VIAL for IV PUSH) 40 mg DAILYAC IVP ; Start 11/28/18 at 07:30 Pantoprazole Sodium (PROTONIX VIAL for IV PUSH) 40 mg 1X ONCE IVP Last administered on 11/27/18at 12:10; Start 11/27/18 at 12:30; Stop 11/27/18 at 12:31 Heparin Sodium (Porcine) (Heparin Sodium) 5,000 unit Q8HRS SQ ; Start 11/27/18 at 14:00; Stop 11/27/18 at 11:57; Status DC Labetalol HCl (Normodyne Iv Push) 20 mg PRN Q2HR PRN IVP HYPERTENSION; Start 11/27/18 at 11:45 Acetaminophen (Tylenol) 500 mg PRN Q6HRS PRN PO MILD PAIN / TEMP; Start 11/27/18 at 11:45 Acetaminophen (Tylenol Supp) 325 mg PRN Q6HRS PRN AR MILD PAIN / TEMP; Start 11/27/18 at 11:45 Ondansetron HCl (Zofran) 4 mg PRN Q6HRS PRN IV NAUSEA/VOMITING; Start 11/27/18 at 11:45 Morphine Sulfate (Morphine Sulfate) 1 mg PRN Q2HR PRN IV PAIN; Start 11/27/18 at 11:45 Albuterol/ Ipratropium (Duoneb) 3 ml RTQID NEB ; Start 11/27/18 at 12:00 Piperacillin Sod/ Tazobactam Sod 2.25 gm/Sodium Chloride 50 ml @ 100 mls/hr Q6HRS IV ; Start 11/27/18 at 17:00 Nicardipine HCl 50 mg/Sodium Chloride 250 ml @ 25 mls/hr CONT PRN IV SEE I/O RECORD; Start 11/27/18 at 12:00 Allergies Allergies: Coded Allergies: No Known Drug Allergies (Unverified , 11/27/18) ROS Review of System Cannot be obtained Physical Exam General: mild distress Lungs: Clear to auscultation Heart: Other (tachycardic) Abdomen: Soft Extremities: No edema Vitals VITALS Vital Signs Date Time Temp Pulse Resp B/P (MAP) Pulse Ox O2 Delivery O2 Flow Rate FiO2 11/27/18 11:14 118 22 165/104 (124) 99 Venturi Mask 15.0 11/27/18 10:21 102.6 102.6 Labs Labs Laboratory Tests Test 11/27/18 09:04 11/27/18 09:07 11/27/18 09:12 11/27/18 09:39 O2 Saturation 96 % (92-99) Arterial Blood pH 7.40 (7.35-7.45) Arterial Blood pH (Temp corrected) 7.34 Arterial Blood pCO2 at Patient Temp 27 mmHg (35-46) Arterial Blood pCO2 (Temp correct) 33 mmHg Arterial Blood pO2 at Patient Temp 87 mmHg (65-108) Arterial Blood pO2 (Temp corrected) 113 mmHg Arterial Blood HCO3 16 mmol/L (21-28) Arterial Blood Base Excess -7 mmol/L (-3-3) FiO2 100% White Blood Count 19.1 x10^3/uL (4.0-11.0) Red Blood Count 5.48 x10^6/uL (3.50-5.40) Hemoglobin 14.8 g/dL (12.0-15.5) Hematocrit 45.0 % (36.0-47.0) Mean Corpuscular Volume 82 fL (79-100) Mean Corpuscular Hemoglobin 27 pg (25-35) Mean Corpuscular Hemoglobin Concent 33 g/dL (31-37) Red Cell Distribution Width 14.5 % (11.5-14.5) Platelet Count 286 x10^3/uL (140-400) Neutrophils (%) (Auto) 90 % (31-73) Lymphocytes (%) (Auto) 5 % (24-48) Monocytes (%) (Auto) 4 % (0-9) Eosinophils (%) (Auto) 0 % (0-3) Basophils (%) (Auto) 1 % (0-3) Neutrophils # (Auto) 17.2 x10^3/uL (1.8-7.7) Lymphocytes # (Auto) 1.0 x10^3/uL (1.0-4.8) Monocytes # (Auto) 0.8 x10^3/uL (0.0-1.1) Eosinophils # (Auto) 0.0 x10^3/uL (0.0-0.7) Basophils # (Auto) 0.1 x10^3/uL (0.0-0.2) Segmented Neutrophils % 60 % (35-66) Band Neutrophils % 32 % (0-9) Lymphocytes % 4 % (24-48) Monocytes % 4 % (0-10) Platelet Estimate Adequate (ADEQUATE) Large Platelets Few Ovalocytes Few Prothrombin Time 14.2 SEC (11.7-14.0) Prothromb Time International Ratio 1.1 (0.8-1.1) Sodium Level 142 mmol/L (136-145) Potassium Level 4.0 mmol/L (3.5-5.1) Chloride Level 103 mmol/L (98-107) Carbon Dioxide Level 20 mmol/L (21-32) Anion Gap 19 (6-14) Blood Urea Nitrogen 22 mg/dL (7-20) Creatinine 2.4 mg/dL (0.6-1.0) Estimated GFR (Cockcroft-Gault) 20.7 BUN/Creatinine Ratio 9 (6-20) Glucose Level 239 mg/dL (70-99) Lactic Acid Level 10.0 mmol/L (0.4-2.0) Calcium Level 10.3 mg/dL (8.5-10.1) Magnesium Level 2.0 mg/dL (1.8-2.4) Total Bilirubin 0.5 mg/dL (0.2-1.0) Aspartate Amino Transf (AST/SGOT) 40 U/L (15-37) Alanine Aminotransferase (ALT/SGPT) 26 U/L (14-59) Alkaline Phosphatase 97 U/L (46-116) Creatine Kinase 607 U/L (26-192) Troponin I Quantitative 4.148 ng/mL (0.000-0.055) HJ-Tma-X-Type Natriuretic Peptide 32987 pg/mL (0-124) Total Protein 8.4 g/dL (6.4-8.2) Albumin 3.7 g/dL (3.4-5.0) Albumin/Globulin Ratio 0.8 (1.0-1.7) Lipase 323 U/L (73-393) Urine Collection Type U cath Urine Color Yellow Urine Clarity Clear Urine pH 5.5 Urine Specific [place] 1.020 Urine Protein >=300 mg/dL (NEG-TRACE) Urine Glucose (UA) Negative mg/dL (NEG) Urine Ketones (Stick) Trace mg/dL (NEG) Urine Blood Large (NEG) Urine Nitrite Negative (NEG) Urine Bilirubin Negative (NEG) Urine Urobilinogen Dipstick 1.0 mg/dL (0.2 mg/dL) Urine Leukocyte Esterase Negative (NEG) Urine RBC 11-20 /HPF (0-2) Urine WBC 1-4 /HPF (0-4) Urine Squamous Epithelial Cells Few /LPF Urine Renal Epithelial Cells Few /LPF Urine Amorphous Sediment Present /HPF Urine Bacteria Few /HPF (0-FEW) Urine Hyaline Casts Few /HPF Urine Mucus Mod /LPF Influenza Type A Antigen Negative (NEGATIVE) Influenza Type B Antigen Negative (NEGATIVE) Laboratory Tests Test 11/27/18 09:04 11/27/18 09:07 11/27/18 09:12 11/27/18 09:39 O2 Saturation 96 % (92-99) Arterial Blood pH 7.40 (7.35-7.45) Arterial Blood pH (Temp corrected) 7.34 Arterial Blood pCO2 at Patient Temp 27 mmHg (35-46) Arterial Blood pCO2 (Temp correct) 33 mmHg Arterial Blood pO2 at Patient Temp 87 mmHg (65-108) Arterial Blood pO2 (Temp corrected) 113 mmHg Arterial Blood HCO3 16 mmol/L (21-28) Arterial Blood Base Excess -7 mmol/L (-3-3) FiO2 100% White Blood Count 19.1 x10^3/uL (4.0-11.0) Red Blood Count 5.48 x10^6/uL (3.50-5.40) Hemoglobin 14.8 g/dL (12.0-15.5) Hematocrit 45.0 % (36.0-47.0) Mean Corpuscular Volume 82 fL (79-100) Mean Corpuscular Hemoglobin 27 pg (25-35) Mean Corpuscular Hemoglobin Concent 33 g/dL (31-37) Red Cell Distribution Width 14.5 % (11.5-14.5) Platelet Count 286 x10^3/uL (140-400) Neutrophils (%) (Auto) 90 % (31-73) Lymphocytes (%) (Auto) 5 % (24-48) Monocytes (%) (Auto) 4 % (0-9) Eosinophils (%) (Auto) 0 % (0-3) Basophils (%) (Auto) 1 % (0-3) Neutrophils # (Auto) 17.2 x10^3/uL (1.8-7.7) Lymphocytes # (Auto) 1.0 x10^3/uL (1.0-4.8) Monocytes # (Auto) 0.8 x10^3/uL (0.0-1.1) Eosinophils # (Auto) 0.0 x10^3/uL (0.0-0.7) Basophils # (Auto) 0.1 x10^3/uL (0.0-0.2) Segmented Neutrophils % 60 % (35-66) Band Neutrophils % 32 % (0-9) Lymphocytes % 4 % (24-48) Monocytes % 4 % (0-10) Platelet Estimate Adequate (ADEQUATE) Large Platelets Few Ovalocytes Few Prothrombin Time 14.2 SEC (11.7-14.0) Prothromb Time International Ratio 1.1 (0.8-1.1) Sodium Level 142 mmol/L (136-145) Potassium Level 4.0 mmol/L (3.5-5.1) Chloride Level 103 mmol/L (98-107) Carbon Dioxide Level 20 mmol/L (21-32) Anion Gap 19 (6-14) Blood Urea Nitrogen 22 mg/dL (7-20) Creatinine 2.4 mg/dL (0.6-1.0) Estimated GFR (Cockcroft-Gault) 20.7 BUN/Creatinine Ratio 9 (6-20) Glucose Level 239 mg/dL (70-99) Lactic Acid Level 10.0 mmol/L (0.4-2.0) Calcium Level 10.3 mg/dL (8.5-10.1) Magnesium Level 2.0 mg/dL (1.8-2.4) Total Bilirubin 0.5 mg/dL (0.2-1.0) Aspartate Amino Transf (AST/SGOT) 40 U/L (15-37) Alanine Aminotransferase (ALT/SGPT) 26 U/L (14-59) Alkaline Phosphatase 97 U/L (46-116) Creatine Kinase 607 U/L (26-192) Troponin I Quantitative 4.148 ng/mL (0.000-0.055) LD-Ecx-R-Type Natriuretic Peptide 55021 pg/mL (0-124) Total Protein 8.4 g/dL (6.4-8.2) Albumin 3.7 g/dL (3.4-5.0) Albumin/Globulin Ratio 0.8 (1.0-1.7) Lipase 323 U/L (73-393) Urine Collection Type U cath Urine Color Yellow Urine Clarity Clear Urine pH 5.5 Urine Specific [place] 1.020 Urine Protein >=300 mg/dL (NEG-TRACE) Urine Glucose (UA) Negative mg/dL (NEG) Urine Ketones (Stick) Trace mg/dL (NEG) Urine Blood Large (NEG) Urine Nitrite Negative (NEG) Urine Bilirubin Negative (NEG) Urine Urobilinogen Dipstick 1.0 mg/dL (0.2 mg/dL) Urine Leukocyte Esterase Negative (NEG) Urine RBC 11-20 /HPF (0-2) Urine WBC 1-4 /HPF (0-4) Urine Squamous Epithelial Cells Few /LPF Urine Renal Epithelial Cells Few /LPF Urine Amorphous Sediment Present /HPF Urine Bacteria Few /HPF (0-FEW) Urine Hyaline Casts Few /HPF Urine Mucus Mod /LPF Influenza Type A Antigen Negative (NEGATIVE) Influenza Type B Antigen Negative (NEGATIVE) Assessment/Plan Assessment/Plan 1. Non-STEMI: Plan conservative management secondary to patient's overall condition and prognosis. Cannot start heparin due to hemorrhagic stroke. Start beta blockers. Check 2-D echo to assess LV function. 2. Sepsis and lactic acidosis, possible aspiration pneumonitis: Continue antibiotics per ID 3. Accelerated hypertension: Start Cardene drip and titrate for better control 4. Multiple CVAs, hemorrhagic stroke, hydrocephalus: Neurology following 5. Sinus tachycardia: physiologic, secondary to sepsis Poor prognosis Thank you for your consultation AMINATA GANN MD Nov 27, 2018 12:25
[2018-11-27] MEDS ORDERED: PANTOPRAZOLE IV PUSH 40 MG VIAL. IVP ONE (12:30)
[2018-11-27] MEDS ORDERED: ACET325T9 PO (12:42)
[2018-11-27] MEDS ORDERED: AMLO10TA8 PO (12:43)
[2018-11-27] MEDS ORDERED: ESCITALOPRAM OX10 MG PO (12:49)
[2018-11-27] MEDS ORDERED: EMOL396C TP (12:49)
[2018-11-27] MEDS ORDERED: METO100T7 PO (12:53)
[2018-11-27] MEDS ORDERED: PRAV20TA2 PO (12:53)
[2018-11-27] MEDS ORDERED: METF10007 PO (12:53)
[2018-11-27] MEDS ORDERED: MAGN400O7 PO (12:53)
[2018-11-27] MEDS ORDERED: HYDR-2869 PO (12:53)
--- NOTE | 2018-11-27 13:22 | PDOC2 ---
NEUROLOGY CONSULT Date of Admission Date of Admission Full Report Dictated Patient is an unfortunate 58-year-old woman with uncontrolled hypertension who has suffered parenchymal hemorrhage in her roberto, midbrain and right thalamus. She appears to be developing hydrocephalus as a consequence. She is currently unresponsive but has the drive to breathe. She is currently not intubated or ventilated. She has spastic in the right arm and both legs. The right hemiparesis is not new. I believe the left leg dysfunction is also not new due to prior stroke. She's had multiple prior stroke as well as previous hemorrhage. I reviewed the CT scan images with the family at length including one from [facility] from November 05, 2017. I explained the extremely poor prognosis and my recommendation for DNR. One of the family members was hysterical with this information. The family will calm down and discuss if they will make the patient a DNR. I do not recommend any intervention as I feel it would be futile. DATE: 11/27/18 TIME: 13:20 Current Medications Current Medications Current Medications Sodium Chloride 1,000 ml @ 1,000 mls/hr Q1H IV Last administered on 11/27/18at 09:27; Start 11/27/18 at 09:04; Stop 11/27/18 at 10:03; Status DC Albuterol/ Ipratropium (Duoneb) 3 ml 1X ONCE NEB Last administered on 11/27/18at 10:46; Start 11/27/18 at 09:15; Stop 11/27/18 at 09:22; Status DC Methylprednisolone Sodium Succinate (SOLU-Medrol 125MG VIAL) 125 mg 1X ONCE IV Last administered on 11/27/18at 09:34; Start 11/27/18 at 09:15; Stop 11/27/18 at 09:22; Status DC Sodium Chloride 1,000 ml @ 1,000 mls/hr 1X ONCE IV Last administered on 11/27/18at 09:27; Start 11/27/18 at 09:15; Stop 11/27/18 at 10:14; Status DC Acetaminophen (Tylenol Supp) 650 mg 1X ONCE [place] Last administered on 11/27/18at 09:34; Start 11/27/18 at 09:15; Stop 11/27/18 at 09:22; Status DC Piperacillin Sod/ Tazobactam Sod 3.375 gm/Sodium Chloride 50 ml @ 100 mls/hr 1X ONCE IV Last administered on 11/27/18at 09:46; Start 11/27/18 at 09:30; Stop 11/27/18 at 09:59; Status DC Vancomycin HCl 250 ml @ 250 mls/hr 1X ONCE IV Last administered on 11/27/18at 10:17; Start 11/27/18 at 09:30; Stop 11/27/18 at 10:29; Status DC Aspirin (Aspirin Rectal Supp) 600 mg 1X STAT [place] Last administered on 11/27/18at 10:17; Start 11/27/18 at 10:03; Stop 11/27/18 at 10:06; Status DC Sodium Chloride 1,000 ml @ 150 mls/hr Q6H40M IV ; Start 11/27/18 at 10:16; Stop 11/27/18 at 11:43; Status DC Labetalol HCl (Normodyne Iv Push) 10 mg 1X ONCE IVP Last administered on 11/27/18at 11:02; Start 11/27/18 at 11:00; Stop 11/27/18 at 11:01; Status DC Amino Acids/ Glycerin/ Electrolytes 1,000 ml @ 100 mls/hr Q10H IV Last administered on 11/27/18at 12:10; Start 11/27/18 at 12:30 Vancomycin HCl (Vanco Per Pharmacy) 1 each PRN DAILY PRN MC SEE COMMENTS; Start 11/27/18 at 11:45 Piperacillin Sod/ Tazobactam Sod (Zosyn Per Pharmacy) 1 each PRN DAILY PRN MC SEE COMMENTS; Start 11/27/18 at 11:45 Pantoprazole Sodium (PROTONIX VIAL for IV PUSH) 40 mg DAILYAC IVP ; Start 11/28/18 at 07:30 Pantoprazole Sodium (PROTONIX VIAL for IV PUSH) 40 mg 1X ONCE IVP Last administered on 11/27/18at 12:10; Start 11/27/18 at 12:30; Stop 11/27/18 at 12:31; Status DC Heparin Sodium (Porcine) (Heparin Sodium) 5,000 unit Q8HRS SQ ; Start 11/27/18 at 14:00; Stop 11/27/18 at 11:57; Status DC Labetalol HCl (Normodyne Iv Push) 20 mg PRN Q2HR PRN IVP HYPERTENSION; Start 11/27/18 at 11:45 Acetaminophen (Tylenol) 500 mg PRN Q6HRS PRN PO MILD PAIN / TEMP; Start 11/27/18 at 11:45 Acetaminophen (Tylenol Supp) 325 mg PRN Q6HRS PRN [place] MILD PAIN / TEMP; Start 11/27/18 at 11:45 Ondansetron HCl (Zofran) 4 mg PRN Q6HRS PRN IV NAUSEA/VOMITING; Start 11/27/18 at 11:45 Morphine Sulfate (Morphine Sulfate) 1 mg PRN Q2HR PRN IV PAIN; Start 11/27/18 at 11:45 Albuterol/ Ipratropium (Duoneb) 3 ml RTQID NEB ; Start 11/27/18 at 12:00 Piperacillin Sod/ Tazobactam Sod 2.25 gm/Sodium Chloride 50 ml @ 100 mls/hr Q6 HRS IV ; Start 11/27/18 at 17:00 Nicardipine HCl 50 mg/Sodium Chloride 250 ml @ 25 mls/hr CONT PRN IV SEE I/O RECORD; Start 11/27/18 at 12:00 Active Scripts Active Reported Pravastatin Sodium 20 Mg Tablet 1 Tab PO QHS Milk Of Magnesia (Magnesium Hydroxide) 400 Mg/5 Ml Oral.susp 400 Mg PO DAILY Metoprolol Tartrate 100 Mg Tablet 100 Mg PO BID Metformin Hcl 1,000 Mg Tablet 1,000 Mg PO BIDWMEALS Hydralazine Hcl 50 Mg Tablet 50 Mg PO QID Eucerin Skin Calming (Emollient Combination No.69) 396 Gm Cream..g. 396 Gm TP HS Escitalopram Oxalate 10 Mg Tablet 10 Mg PO DAILY Amlodipine Besylate 10 Mg Tablet 10 Mg PO DAILY Tylenol (Acetaminophen) 325 Mg Tablet 650 Mg PO PRN Q4HRS PRN Allergies Allergies: Coded Allergies: No Known Drug Allergies (Unverified , 11/27/18) Vitals VITALS Vital Signs Date Time Temp Pulse Resp B/P (MAP) Pulse Ox O2 Delivery O2 Flow Rate FiO2 11/27/18 12:00 115 15 137/98 (111) 100 Venturi Mask 15.0 11/27/18 11:45 101.8 101.8 Labs Labs Laboratory Tests Test 11/27/18 09:04 11/27/18 09:07 11/27/18 09:11/27/18 09:39 O2 Saturation 96 % (92-99) Arterial Blood pH 7.40 (7.35-7.45) Arterial Blood pH (Temp corrected) 7.34 Arterial Blood pCO2 at Patient Temp 27 mmHg (35-46) Arterial Blood pCO2 (Temp correct) 33 mmHg Arterial Blood pO2 at Patient Temp 87 mmHg (65-108) Arterial Blood pO2 (Temp corrected) 113 mmHg Arterial Blood HCO3 16 mmol/L (21-28) Arterial Blood Base Excess -7 mmol/L (-3-3) FiO2 100% White Blood Count 19.1 x10^3/uL (4.0-11.0) Red Blood Count 5.48 x10^6/uL (3.50-5.40) Hemoglobin 14.8 g/dL (12.0-15.5) Hematocrit 45.0 % (36.0-47.0) Mean Corpuscular Volume 82 fL (79-100) Mean Corpuscular Hemoglobin 27 pg (25-35) Mean Corpuscular Hemoglobin Concent 33 g/dL (31-37) Red Cell Distribution Width 14.5 % (11.5-14.5) Platelet Count 286 x10^3/uL (140-400) Neutrophils (%) (Auto) 90 % (31-73) Lymphocytes (%) (Auto) 5 % (24-48) Monocytes (%) (Auto) 4 % (0-9) Eosinophils (%) (Auto) 0 % (0-3) Basophils (%) (Auto) 1 % (0-3) Neutrophils # (Auto) 17.2 x10^3/uL (1.8-7.7) Lymphocytes # (Auto) 1.0 x10^3/uL (1.0-4.8) Monocytes # (Auto) 0.8 x10^3/uL (0.0-1.1) Eosinophils # (Auto) 0.0 x10^3/uL (0.0-0.7) Basophils # (Auto) 0.1 x10^3/uL (0.0-0.2) Segmented Neutrophils % 60 % (35-66) Band Neutrophils % 32 % (0-9) Lymphocytes % 4 % (24-48) Monocytes % 4 % (0-10) Platelet Estimate Adequate (ADEQUATE) Large Platelets Few Ovalocytes Few Prothrombin Time 14.2 SEC (11.7-14.0) Prothromb Time International Ratio 1.1 (0.8-1.1) Sodium Level 142 mmol/L (136-145) Potassium Level 4.0 mmol/L (3.5-5.1) Chloride Level 103 mmol/L (98-107) Carbon Dioxide Level 20 mmol/L (21-32) Anion Gap 19 (6-14) Blood Urea Nitrogen 22 mg/dL (7-20) Creatinine 2.4 mg/dL (0.6-1.0) Estimated GFR (Cockcroft-Gault) 20.7 BUN/Creatinine Ratio 9 (6-20) Glucose Level 239 mg/dL (70-99) Lactic Acid Level 10.0 mmol/L (0.4-2.0) Calcium Level 10.3 mg/dL (8.5-10.1) Magnesium Level 2.0 mg/dL (1.8-2.4) Total Bilirubin 0.5 mg/dL (0.2-1.0) Aspartate Amino Transf (AST/SGOT) 40 U/L (15-37) Alanine Aminotransferase (ALT/SGPT) 26 U/L (14-59) Alkaline Phosphatase 97 U/L (46-116) Creatine Kinase 607 U/L (26-192) Troponin I Quantitative 4.148 ng/mL (0.000-0.055) VT-Yrn-S-Type Natriuretic Peptide 34705 pg/mL (0-124) Total Protein 8.4 g/dL (6.4-8.2) Albumin 3.7 g/dL (3.4-5.0) Albumin/Globulin Ratio 0.8 (1.0-1.7) Lipase 323 U/L (73-393) Urine Collection Type U cath Urine Color Yellow Urine Clarity Clear Urine pH 5.5 Urine Specific [place] 1.020 Urine Protein >=300 mg/dL (NEG-TRACE) Urine Glucose (UA) Negative mg/dL (NEG) Urine Ketones (Stick) Trace mg/dL (NEG) Urine Blood Large (NEG) Urine Nitrite Negative (NEG) Urine Bilirubin Negative (NEG) Urine Urobilinogen Dipstick 1.0 mg/dL (0.2 mg/dL) Urine Leukocyte Esterase Negative (NEG) Urine RBC 11-20 /HPF (0-2) Urine WBC 1-4 /HPF (0-4) Urine Squamous Epithelial Cells Few /LPF Urine Renal Epithelial Cells Few /LPF Urine Amorphous Sediment Present /HPF Urine Bacteria Few /HPF (0-FEW) Urine Hyaline Casts Few /HPF Urine Mucus Mod /LPF Influenza Type A Antigen Negative (NEGATIVE) Influenza Type B Antigen Negative (NEGATIVE) Laboratory Tests Test 11/27/18 09:04 11/27/18 09:07 11/27/18 09:12 11/27/18 09:39 O2 Saturation 96 % (92-99) Arterial Blood pH 7.40 (7.35-7.45) Arterial Blood pH (Temp corrected) 7.34 Arterial Blood pCO2 at Patient Temp 27 mmHg (35-46) Arterial Blood pCO2 (Temp correct) 33 mmHg Arterial Blood pO2 at Patient Temp 87 mmHg (65-108) Arterial Blood pO2 (Temp corrected) 113 mmHg Arterial Blood HCO3 16 mmol/L (21-28) Arterial Blood Base Excess -7 mmol/L (-3-3) FiO2 100% White Blood Count 19.1 x10^3/uL (4.0-11.0) Red Blood Count 5.48 x10^6/uL (3.50-5.40) Hemoglobin 14.8 g/dL (12.0-15.5) Hematocrit 45.0 % (36.0-47.0) Mean Corpuscular Volume 82 fL (79-100) Mean Corpuscular Hemoglobin 27 pg (25-35) Mean Corpuscular Hemoglobin Concent 33 g/dL (31-37) Red Cell Distribution Width 14.5 % (11.5-14.5) Platelet Count 286 x10^3/uL (140-400) Neutrophils (%) (Auto) 90 % (31-73) Lymphocytes (%) (Auto) 5 % (24-48) Monocytes (%) (Auto) 4 % (0-9) Eosinophils (%) (Auto) 0 % (0-3) Basophils (%) (Auto) 1 % (0-3) Neutrophils # (Auto) 17.2 x10^3/uL (1.8-7.7) Lymphocytes # (Auto) 1.0 x10^3/uL (1.0-4.8) Monocytes # (Auto) 0.8 x10^3/uL (0.0-1.1) Eosinophils # (Auto) 0.0 x10^3/uL (0.0-0.7) Basophils # (Auto) 0.1 x10^3/uL (0.0-0.2) Segmented Neutrophils % 60 % (35-66) Band Neutrophils % 32 % (0-9) Lymphocytes % 4 % (24-48) Monocytes % 4 % (0-10) Platelet Estimate Adequate (ADEQUATE) Large Platelets Few Ovalocytes Few Prothrombin Time 14.2 SEC (11.7-14.0) Prothromb Time International Ratio 1.1 (0.8-1.1) Sodium Level 142 mmol/L (136-145) Potassium Level 4.0 mmol/L (3.5-5.1) Chloride Level 103 mmol/L (98-107) Carbon Dioxide Level 20 mmol/L (21-32) Anion Gap 19 (6-14) Blood Urea Nitrogen 22 mg/dL (7-20) Creatinine 2.4 mg/dL (0.6-1.0) Estimated GFR (Cockcroft-Gault) 20.7 BUN/Creatinine Ratio 9 (6-20) Glucose Level 239 mg/dL (70-99) Lactic Acid Level 10.0 mmol/L (0.4-2.0) Calcium Level 10.3 mg/dL (8.5-10.1) Magnesium Level 2.0 mg/dL (1.8-2.4) Total Bilirubin 0.5 mg/dL (0.2-1.0) Aspartate Amino Transf (AST/SGOT) 40 U/L (15-37) Alanine Aminotransferase (ALT/SGPT) 26 U/L (14-59) Alkaline Phosphatase 97 U/L (46-116) Creatine Kinase 607 U/L (26-192) Troponin I Quantitative 4.148 ng/mL (0.000-0.055) WF-Crn-[id number]-Type Natriuretic Peptide 13303 pg/mL (0-124) Total Protein 8.4 g/dL (6.4-8.2) Albumin 3.7 g/dL (3.4-5.0) Albumin/Globulin Ratio 0.8 (1.0-1.7) Lipase 323 U/L (73-393) Urine Collection Type U cath Urine Color Yellow Urine Clarity Clear Urine pH 5.5 Urine Specific [place] 1.020 Urine Protein >=300 mg/dL (NEG-TRACE) Urine Glucose (UA) Negative mg/dL (NEG) Urine Ketones (Stick) Trace mg/dL (NEG) Urine Blood Large (NEG) Urine Nitrite Negative (NEG) Urine Bilirubin Negative (NEG) Urine Urobilinogen Dipstick 1.0 mg/dL (0.2 mg/dL) Urine Leukocyte Esterase Negative (NEG) Urine RBC 11-20 /HPF (0-2) Urine WBC 1-4 /HPF (0-4) Urine Squamous Epithelial Cells Few /LPF Urine Renal Epithelial Cells Few /LPF Urine Amorphous Sediment Present /HPF Urine Bacteria Few /HPF (0-FEW) Urine Hyaline Casts Few /HPF Urine Mucus Mod /LPF Influenza Type A Antigen Negative (NEGATIVE) Influenza Type B Antigen Negative (NEGATIVE) LUTHER FRANKLIN MD Nov 27, 2018 13:22
--- NOTE | 2018-11-27 13:41 | NUR ---
Per family no repeat blood draw for lactic and troponin.
[2018-11-27] MEDS ORDERED: HEPARIN for SUB-Q USE 5,000 UNIT/ML VIAL. SQ SCH (14:00)
[2018-11-27] MEDS: METOPROLOL TARTRATE 5 MG/5 ML VIAL. IVP SCH ×3 (15:43→23:47)
[2018-11-27] MEDS: VANCOMYCIN PER PHARMACY MC PRN (16:03)
--- NOTE | 2018-11-27 16:04 | NUR ---
Pharmacy Vancomycin Dosing Note S:Consulted to monitor and dose vancomycin started 11/27/18. O:SALUD SEPULVEDA is a 58 year old F with sepsis. Height: 5 feet, 0 inches Weight: 42.4 kg Dosing Weight: Actual Other Antibiotics: ZOSYN 2.25G IV Q6HRS LABS: Last BUN: 22 Last Creatinine: 2.4 Creatinine Clearance: 16 mL/min Last WBC: 19.1 Tmax (past 24 hours): 106 Microbiology: BLOOD CX IN PROCESS I/O: 2300/100 A: Patient requires vancomycin for sepsis, goal trough 15-20 mcg/ml. Her SCr is elevated at 2.4 with an eCrCl of 16 ml/min. Patient received a one time dose of vancomycin 1000 mg in ER this morning. P: 1. No further vancomycin doses today, received vancomycin 1000 mg IV x 1 in ER 2. Follow up Random level on 11/29/18 at 0900 3. Pharmacy will continue to monitor, follow and adjust therapy as needed. ADILIA HENSON [facility] [place], 11/27/18 [id number]
[2018-11-27] MEDS: PIPERACILLIN/TAZOBACTAM 2.25 GM in IV NORMAL SALINE 50ML 50 ML IV SCH ×3 (17:29→23:45)
--- NOTE | 2018-11-27 18:10 | EKG ---
[facility] [address] [place] [address] Test Date: 2018-11-27 Test Time: 09:01:38 Pat Name: SALUD SEPULVEDA Department: Room: Gender: F [employer] T[employer]: : 1960 Requested By: RYAN FLORES Order Number: [id number] Reading MD: Measurements Intervals [place] Rate: 146 P: -90 CA: 112 QRS: -55 QRSD: 78 T: 38 QT: 248 QTc: 393 Interpretive Statements SINUS TACHYCARDIA LEFT ATRIAL ABNORMALITY ABNORMAL LEFT AXIS DEVIATION CONSIDER LEFT VENTRICULAR HYPERTROPHY QRS(T) CONTOUR ABNORMALITY CONSISTENT WITH INFERIOR INFARCT PROBABLY OLD ABNORMAL ECG No previous ECG available for comparison
--- NOTE | 2018-11-27 21:58 | CONS ---
DATE OF CONSULTATION: 11/27/2018 REFERRING PHYSICIAN: Dr. Romina Moseley. REASON FOR CONSULTATION: brainstem hemorrhage with coma. HISTORY OF PRESENT ILLNESS: The patient is a 58-year-old woman who is a resident of an [facility] Facility. She previously had strokes with significant deficits with right spastic hemiplegia, but both legs were also quite weak. She was able to use her left arm. Her family noticed her to be more lethargic at the care home unit, but wished for her to be brought in last night with a [place] Coma Scale of 6. Her last known normal was last night. She is a full code. She underwent a CT scan of her head, which was abnormal revealing extensive hemorrhage into her brainstem. She is still breathing on her own and is in the Intensive Care Unit. There was a large family at the bedside. The patient is nonverbal, in a coma, so history was obtained from medical records. I was able to review some records from [facility], also on staff at that facility. Her most recent admission was 12/03/2017 when she had a hypertensive crisis with a blood pressure of 234/127. She had been refusing her oral medications prior to that admission. This is not the first time she had had discontinued her medicines and had hypertensive crisis. PAST MEDICAL HISTORY: 1. 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 2. Hypertensive with recurrent crisis. 3. Hyperlipidemia. 4. Type 2 diabetes. 5. Gastroesophageal reflux disease. 6. Dementia. 7. Bipolar disorder. 8. Psychotic disorder. ALLERGIES: No known allergies to drugs. MEDICATIONS PRIOR TO ADMISSION: Tylenol as needed, amlodipine 10 mg, Eucerin, Lexapro 10 mg, hydralazine 50 mg 4 times per day, Milk of Magnesia, metformin 1000 mg twice per day, metoprolol 100 mg twice per day, and pravastatin 20 mg at night. FAMILY HISTORY: Mother had cancer and diabetes. SOCIAL HISTORY: She resides in an Extended [facility] Facility. Last year, she was continuing to smoke tobacco. She does not drink alcohol. REVIEW OF SYSTEMS: Not obtainable as the patient is in a coma. PHYSICAL EXAMINATION: VITAL SIGNS: Blood pressure at its highest was 225/123, but most recently was 137/98. The pulse was 115, respirations 15, temperature 101.8. Oximetry was 100% on a Venturi mask with 15 liters. Her weight was 42.6 kilograms, height 60 inches with a calculated body mass index of 18.4. GENERAL: She was lying in the bed, breathing with a mask. She was not intubated or ventilated. She was not in respiratory distress. NEUROLOGIC: Her eyes were closed. Stimulation did not provoke any eye opening. When the eyes were held open, they were disconjugate. She did not look up to command or follow any command. She did not respond to visual threat or loud clap. Pupils were 4 mm and not reactive. Oculocephalic reflex was absent. Corneal reflex was absent. Funduscopic exam did not reveal papilledema. The neck was not rigid. Muscle bulk was diminished. Tone was increased with contractures, inability to reduce in the right upper extremity. She had extreme increased tone in the lower extremities with the right worse than the left. She had normal tone in the left arm. She did not hold the arm up to command. Now, bed pressure did provoke some withdrawal in the left upper extremity. There was upgoing toes bilaterally, which was provoked by nailbed pressure in the feet. NECK: Auscultation of the carotid arteries did not reveal a bruit. HEART: Rhythm was tachycardic without a murmur. EXTREMITIES: Peripheral pulses were present in the hands and feet. There was no edema or cyanosis. REVIEW OF LABORATORY DATA: CBC revealed an elevated white blood cell count at 19.1. Hemoglobin was 14.8, hematocrit 45, and platelet count normal at 286. Chemistry revealed normal electrolytes. CO2 was low at 20. BUN was 22 and creatinine was 2.4 with a GFR that calculated at 20.7. Glucose elevated at 239. Calcium elevated at 10.3. Magnesium was normal. SGOT was elevated to 40. Creatinine kinase was elevated to 607. BNP was elevated at 11,555. Troponin was elevated to 4.184. Total protein was elevated at 8.4. Lipase was not elevated. Lactic acid was elevated to 10. PT/INR was 1.1. Urinalysis revealed greater than 300 mg/dL of protein, trace ketones, large amount of blood, 11-20 red blood cells, 1-4 white blood cells, and a few squamous epithelial cells and bacteria. Influenza screening was negative. An arterial blood gas revealed a pH of 7.4, the temperature corrected pH was 7.34. A pCO2 was 27; pO2 113; and bicarbonate 16, which was low. Saturation was 96%. IMAGING: I reviewed the CT scan of the brain performed 11/27/2018. This revealed a prominent hemorrhage extending the roberto, right greater than left; into the mid brain; and right thalamus. There was mass effect with effacement of the fourth ventricle. The third ventricles were more prominently dilated relative to 2018 concerning for the development of hydrocephalus. There was also a smaller focus of hemorrhage along the left lateral aspect of the fourth ventricle, which may be parenchymal. She had severe atrophy and encephalomalacia involving both cerebellar hemispheres as well as the upper aspect of the left frontal lobe. IMPRESSION: The patient is a 58-year-old woman who has had poorly controlled blood pressure. She has had a devastating hemorrhage in her brain stem affecting roberto as well as mid brain. Prognosis of this situation is extremely poor. She may be developing hydrocephalus. Neurologic exam reveals that she is not brain as she does have a strong drive to breathe and is currently not intubated or ventilated. I do not see other brainstem reflexes. Prognosis for survival is extremely poor. It is highly likely this area of hemorrhage will swell and caused brainstem dysfunction, which will affect her drive to breathe. It is likely she will develop hydrocephalus, which would further put compression on the brainstem and affect her drive to breathe. RECOMMENDATIONS: I spoke with the family at length and demonstrated the CAT scan pictures, both from 2018 as well as the current. I did demonstrate the area of hemorrhage and my concerns and the poor prognosis. Some of the family members at this point became quite hysterical. I did talk with the nonhysterical family members and explained that I would recommend a do not resuscitate status as I felt prognosis for recovery was extremely poor. I appreciate being involved in her care. LUTHER FRANKLIN MD DR: OTILIA/radu JOB#: [id number] / [id number] francisca Hall Dr. Chi, Dr.
[2018-11-28] VITALS (17 sets, daily range): BP systolic 121–189; BP diastolic 78–110
[2018-11-28 04:43] LABS: GFR 30.9
[2018-11-28] MEDS: PIPERACILLIN/TAZOBACTAM 2.25 GM in IV NORMAL SALINE 50ML 50 ML IV SCH ×3 (05:57→17:37)
[2018-11-28] MEDS: METOPROLOL TARTRATE 5 MG/5 ML VIAL. IVP SCH ×4 (06:00→22:28)
[2018-11-28] MEDS: IPRATRPIUM/ALBUTEROL 0.5/2.5MG 3 ML NEBU. NEB SCH ×3 (07:44→11:45)
[2018-11-28] MEDS: LABETALOL 20 MG/4 ML DISP.SYRIN. IVP PRN ×2 (07:50→19:40)
[2018-11-28] MEDS: PANTOPRAZOLE IV PUSH 40 MG VIAL. IVP SCH (07:50)
[2018-11-28] MEDS: AMINO AC 3%/ELECTROLYTE/GLYCER 1,000 ML IV SCH ×2 (10:06→19:41)
--- NOTE | 2018-11-28 10:52 | PDOC ---
PROGRESS NOTES Subjective Subjective Patient presently DNR/DNI Objective Objective Vital Signs Date Time Temp Pulse Resp B/P (MAP) Pulse Ox O2 Delivery O2 Flow Rate FiO2 11/28/18 10:00 87 16 140/82 (101) 99 Venturi Mask 11/28/18 08:00 15.0 11/28/18 07:00 101.3 101.3 Intake and Output 11/28/18 06:59 Intake Total 4224 ml Output Total 2310 ml Balance 1914 ml Intake IV Total 4224 ml Output Urine Total 2310 ml Physical Exam Abdomen: Soft Heart: Other (tachycardic) Extremities: No edema General: mild distress Lungs: Clear to auscultation Skin: Other (senile skin turgor) Assessment Assessment 1. Non-STEMI: Plan conservative management secondary to patient's overall condition and prognosis. Cannot start heparin due to hemorrhagic stroke. Continue beta blockers. 2. Sepsis and lactic acidosis, possible aspiration pneumonitis: Continue antibiotics per ID 3. Accelerated hypertension: on Cardene drip 4. Multiple CVAs, hemorrhagic stroke, hydrocephalus: Neurology following 5. Sinus tachycardia: physiologic, secondary to sepsis Patient presently DNR/DNI. Family considering comfort care. We will sign off. Thank you for consultation Plan Plan of Care Problems Medical Problems: (1) Altered level of consciousness Status: Acute (2) HCAP (healthcare-associated pneumonia) Status: Acute (3) Heart failure Status: Acute (4) History of CVA (cerebrovascular accident) Status: Acute (5) Hypercalcemia Status: Acute (6) Hypoxia Status: Acute (7) NSTEMI (non-ST elevated myocardial infarction) Status: Acute (8) Renal insufficiency Status: Acute (9) Right hemiplegia Status: Acute (10) Sepsis Status: Acute (11) Severe sepsis Status: Acute (12) Uncontrolled diabetes mellitus Status: Acute Comment Review of Relevant I have reviewed the following items caesar (where applicable) has been applied. Labs Laboratory Tests Test 11/28/18 04:00 Creatinine 2.0 mg/dL (0.6-1.0) Estimated GFR (Cockcroft-Gault) 30.9 Microbiology 11/27/18 Blood Culture - Preliminary, Resulted NO GROWTH AFTER 1 DAY Medications Current Medications Acetaminophen (Tylenol Supp) 325 mg PRN Q6HRS PRN GA MILD PAIN / TEMP Last administered on 11/27/18at 19:47; Start 11/27/18 at 11:45 Acetaminophen (Tylenol) 500 mg PRN Q6HRS PRN PO MILD PAIN / TEMP; Start 11/27/18 at 11:45 Albuterol/ Ipratropium (Duoneb) 3 ml RTQID NEB Last administered on 11/28/18at 07:44; Start 11/27/18 at 12:00 Amino Acids/ Glycerin/ Electrolytes 1,000 ml @ 100 mls/hr Q10H IV Last administered on 11/28/18at 10:06; Start 11/27/18 at 12:30 Heparin Sodium (Porcine) (Heparin Sodium) 5,000 unit Q8HRS SQ ; Start 11/27/18 at 14:00; Stop 11/27/18 at 11:57; Status DC Labetalol HCl (Normodyne Iv Push) 10 mg 1X ONCE IVP Last administered on 11/27/18at 11:02; Start 11/27/18 at 11:00; Stop 11/27/18 at 11:01; Status DC Labetalol HCl (Normodyne Iv Push) 20 mg PRN Q2HR PRN IVP HYPERTENSION Last administered on 11/28/18at 07:50; Start 11/27/18 at 11:45 Metoprolol Tartrate (Lopressor Vial) 10 mg Q6HRS IVP Last administered on 11/28/18at 06:00; Start 11/27/18 at 15:00 Morphine Sulfate (Morphine Sulfate) 1 mg PRN Q2HR PRN IV PAIN; Start 11/27/18 at 11:45 Nicardipine HCl 50 mg/Sodium Chloride 250 ml @ 25 mls/hr CONT PRN IV SEE I/O RECORD Last administered on 11/28/18at 03:00; Start 11/27/18 at 12:00 Ondansetron HCl (Zofran) 4 mg PRN Q6HRS PRN IV NAUSEA/VOMITING; Start 11/27/18 at 11:45 Pantoprazole Sodium (PROTONIX VIAL for IV PUSH) 40 mg 1X ONCE IVP Last administered on 11/27/18at 12:10; Start 11/27/18 at 12:30; Stop 11/27/18 at 12:31; Status DC Pantoprazole Sodium (PROTONIX VIAL for IV PUSH) 40 mg DAILYAC IVP Last administered on 11/28/18at 07:50; Start 11/28/18 at 07:30 Piperacillin Sod/ Tazobactam Sod (Zosyn Per Pharmacy) 1 each PRN DAILY PRN MC SEE COMMENTS; Start 11/27/18 at 11:45 Piperacillin Sod/ Tazobactam Sod 2.25 gm/Sodium Chloride 50 ml @ 100 mls/hr Q6HRS IV Last administered on 11/28/18at 06:00; Start 11/27/18 at 17:00 Vancomycin HCl (Vanco Per Pharmacy) 1 each PRN DAILY PRN MC SEE COMMENTS Last administered on 11/27/18at 16:03; Start 11/27/18 at 11:45 Vancomycin HCl (Vancomycin Random Level) 1 each 1X ONCE MC ; Start 11/29/18 at 05:00; Stop 11/29/18 at 05:01 Vitals/I & O Vital Sign - Last 24 Hours 11/27/18 11/27/18 11/27/18 11/27/18 11:00 11:02 11:14 11:45 Temp 101.8 101.8 Pulse 154 155 118 113 Resp 22 22 14 B/P (MAP) 221/106 (144) 221/109 165/104 (124) 185/112 (136) Pulse Ox 98 99 100 O2 Delivery Venturi Mask Venturi Mask Venturi Mask O2 Flow Rate 15.0 15.0 15.0 11/27/18 11/27/18 11/27/18 11/27/18 12:00 12:50 13:00 14:00 Pulse 115 110 110 Resp 15 15 25 B/P (MAP) 137/98 (111) 158/101 (120) 165/102 (123) Pulse Ox 100 100 100 O2 Delivery Venturi Mask Venturi Mask Venturi Mask Venturi Mask O2 Flow Rate 15.0 15.0 15.0 15.0 11/27/18 11/27/18 11/27/18 11/27/18 15:00 15:43 15:49 16:00 Temp 101.3 101.3 Pulse 108 109 Resp 13 B/P (MAP) 168/106 (126) 171/108 Pulse Ox 98 98 O2 Delivery Venturi Mask Venturi Mask Venturi Mask O2 Flow Rate 15.0 15.0 15.0 11/27/18 11/27/18 11/27/18 11/27/18 16:00 17:00 18:00 19:00 Temp 102.0 102.0 Pulse 102 101 96 93 Resp 13 13 12 11 B/P (MAP) 166/115 (132) 166/116 (133) 162/98 (119) 172/101 (124) Pulse Ox 98 98 98 98 O2 Delivery Venturi Mask Venturi Mask Venturi Mask Venturi Mask O2 Flow Rate 15.0 15.0 15.0 11/27/18 11/27/18 11/27/18 11/27/18 19:41 19:47 20:00 20:00 Temp 102.0 102.0 Pulse 94 91 Resp 11 B/P (MAP) 172/101 178/109 (132) Pulse Ox 98 98 O2 Delivery Venturi Mask Venturi Mask Venturi Mask O2 Flow Rate 15.0 15.0 11/27/18 11/27/18 11/27/18 11/27/18 21:00 22:00 23:00 23:47 Temp 101.5 101.7 101.5 101.7 Pulse 90 91 92 92 Resp 11 12 13 B/P (MAP) 178/109 (132) 158/94 (115) 173/101 (125) 173/101 Pulse Ox 98 96 97 O2 Delivery Venturi Mask Venturi Mask Venturi Mask 11/28/18 11/28/18 11/28/18 11/28/18 00:00 00:00 01:00 02:00 Temp 101.7 101.3 101.3 101.7 101.3 101.3 Pulse 87 86 84 Resp 14 13 14 B/P (MAP) 174/104 (127) 174/104 (127) 189/107 (134) Pulse Ox 98 96 97 O2 Delivery Venturi Mask Venturi Mask Venturi Mask Venturi Mask O2 Flow Rate 15.0 11/28/18 11/28/18 11/28/18 11/28/18 03:00 04:00 04:00 05:00 Temp 101.3 101.5 101.3 101.5 Pulse 87 101 103 Resp 11 13 14 B/P (MAP) 188/110 (136) 149/88 (108) 145/90 (108) Pulse Ox 97 98 94 O2 Delivery Venturi Mask Venturi Mask Venturi Mask Venturi Mask O2 Flow Rate 15.0 11/28/18 11/28/18 11/28/18/15/19 06:00 06:00 07:00 07:44 Temp 101.7 101.3 101.7 101.3 Pulse 93 101 93 Resp 14 12 B/P (MAP) 149/82 (104) 156/82 140/82 (101) Pulse Ox 95 94 95 O2 Delivery Venturi Mask Venturi Mask Venturi Mask O2 Flow Rate 10.0 11/28/18 11/28/18 11/28/18 11/28/18 07:50 08:00 08:00 09:00 Pulse 93 93 89 Resp 14 16 B/P (MAP) 140/82 121/78 (92) 138/81 (100) Pulse Ox 94 100 O2 Delivery Venturi Mask Venturi Mask Venturi Mask O2 Flow Rate 15.0 11/28/18 10:00 Pulse 87 Resp 16 B/P (MAP) 140/82 (101) Pulse Ox 99 O2 Delivery Venturi Mask Intake and Output 11/27/18 11/27/18 11/28/18 14:59 22:59 06:59 Intake Total 2300 ml 474 ml 1450 ml Output Total 850 ml 670 ml 790 ml Balance 1450 ml -196 ml 660 ml AMINTAA GANN MD Nov 28, 2018 10:52
--- NOTE | 2018-11-28 11:45 | NUR ---
Daughter request a stop to breathing treatments for patient. Daughter is thinking about moving toward comfort care for patient. Will let this RN know later.
[2018-11-28] MEDS: VANCOMYCIN PER PHARMACY MC PRN (12:06)
--- NOTE | 2018-11-28 12:10 | PDOC ---
[employer] PROGRESS NOTE Chief Complaint Chief Complaint Parenchymal hemorrhage to roberto, midbrain and right thalamus Possible hydrocephalus Non-STEMI History of CVA �3 with right hand contracture Hypertensive with recent crisis Hyperlipidemia Type 2 Diabetes Dementia Severe sepsis with DUANE Functional quadriplegia Hypoxemic respiratory failure Troponin 4 History of Present Illness History of Present Illness 11/28/18 Pt seen/examined in the ICU Pt's pupils are non reactive bilaterally and + Babinski sign bilaterally DW family regarding pt's mental status Pt is currently DNR Chart Reviewed Vitals/I&O Vitals/I&O: Vital Signs Date Time Temp Pulse Resp B/P (MAP) Pulse Ox O2 Delivery O2 Flow Rate FiO2 11/28/18 11:43 100 Venturi Mask 10.0 11/28/18 11:00 99.9 86 15 152/86 (108) 99.9 I & O 11/27/18 11/27/18 11/28/18 15:00 23:00 07:00 Intake Total 2300 ml 474 ml 1450 ml Output Total 1000 ml 550 ml 775 ml Balance 1300 ml -76 ml 675 ml Physical Exam Physical Exam: General: mild distress, Other (NRB, no tachypnea, no retractions) Lungs: Normal air movement, Other (crackles) Heart: S1S2, regular rhythm, no thrills, no rubs, no gallops, slightly tachycardic Breasts: Normal, Rt breast nml w/o mass, Lt breast nml w/o mass, Nipples normal Abdomen: Normal bowel sounds, Soft, No tenderness, No hepatosplenomegaly, No masses Neuro: Pupils non-reactive to light bilaterally, + Babinski sign bilaterally Extremities: No clubbing, Other (chronic rt hand contracture ) Skin: Other (senile skin turgor) Labs Labs: Laboratory Tests Test 11/28/18 04:00 Creatinine 2.0 mg/dL (0.6-1.0) Estimated GFR (Cockcroft-Gault) 30.9 Review of Systems Review of Systems: Unable to obtain since patient is unresponsive Assessment and Plan Assessmemt and Plan Problems Medical Problems: (1) Altered level of consciousness Status: Acute (2) HCAP (healthcare-associated pneumonia) Status: Acute (3) Heart failure Status: Acute (4) History of CVA (cerebrovascular accident) Status: Acute (5) Hypercalcemia Status: Acute (6) Hypoxia Status: Acute (7) NSTEMI (non-ST elevated myocardial infarction) Status: Acute (8) Renal insufficiency Status: Acute (9) Right hemiplegia Status: Acute (10) Sepsis Status: Acute (11) Severe sepsis Status: Acute (12) Uncontrolled diabetes mellitus Status: Acute Assessment/Plan Assessment/Plan Parenchymal hemorrhage to roberto, midbrain and right thalamus Possible hydrocephalus Non-STEMI History of CVA �3 with right hand contracture Hypertensive with recent crisis Hyperlipidemia Type 2 Diabetes Dementia Severe sepsis with DUANE Functional quadriplegia Hypoxemic respiratory failure Troponin 4 Plan: ICU monitoring Continue comfort care Wiseman to BSD PPN IV Procalamine Appreciate sub-speciality input Comment Review of Relevant I have reviewed the following items caesar (where applicable) has been applied. Medications: Current Medications Medications (Trade) Dose Ordered Sig/Ángel Route PRN Reason Start Time Stop Time Status Last Admin Dose Admin Amino Acids/ Glycerin/ Electrolytes 1,000 ml @ 100 mls/hr Q10H IV 11/27/18 12:30 11/28/18 10:06 Pantoprazole Sodium (PROTONIX VIAL for IV PUSH) 40 mg DAILYAC IVP 11/28/18 07:30 11/28/18 07:50 Pantoprazole Sodium (PROTONIX VIAL for IV PUSH) 40 mg 1X ONCE IVP 11/27/18 12:30 11/27/18 12:31 DC 11/27/18 12:10 Piperacillin Sod/ Tazobactam Sod 2.25 gm/Sodium Chloride 50 ml @ 100 mls/hr Q6HRS IV 11/27/18 17:00 11/28/18 06:00 Metoprolol Tartrate (Lopressor Vial) 10 mg Q6HRS IVP 11/27/18 15:00 11/28/18 06:00 MARII FRYE III DO Nov 28, 2018 12:10
--- NOTE | 2018-11-28 15:46 | PDOC ---
PROGRESS NOTES Assessment 1. Intracranial hemorrhage of the roberto and going up superiorly. She continues to remain in a coma. She retains her ability to breathe but I anticipate as pressure increases with cerebral damage and hydrocephalus that this will compress the medulla and she will stop breathing. The family has made her a DO NOT RESUSCITATE. They plan on transitioning her care to comfort as the priority beginning tonight as soon as the remaining family members have the opportunity to visit. I support the family's approach as prognosis for neurologic recovery approaches hopeless. The examination today reveals increased tone in the legs as well as the left arm. She now has extensor posturing as well as clonus in the right ankle. The examination has deteriorated. 2. She may be developing hydrocephalus. Intervention is not indicated because of the shift of care to comfort rather than restorative. 3. Non-ST segment elevation myocardial infarction: Likely a consequence of the neurologic injury 4. Uncontrolled hypertension which likely contributed to the hemorrhage 5. Uncontrolled diabetes 6. Sepsis syndrome with acute kidney injury and markedly elevated lactic acid. All of these underlying health issues worsen the prognosis which already approaches hopeless. Plan 1. The patient will be transferred out of the intensive care unit on the last of the family members has been sedated and she will be switched to comfort as the primary priority rather than restorative care. She is currently a DNR. Subjective Nonverbal, coma Objective Vital Signs Date Time Temp Pulse Resp B/P (MAP) Pulse Ox O2 Delivery O2 Flow Rate FiO2 11/28/18 15:00 100.4 91 20 156/88 (110) 100 Nasal Cannula 5.0 100.4 Intake and Output 11/28/18 07:00 Intake Total 4224 ml Output Total 2325 ml Balance 1899 ml Intake IV Total 4224 ml Output Urine Total 2325 ml PHYSICAL EXAM She did not appear to be in distress. She was breathing on her own although there was some underlying sound a slight obstruction. The eyes were closed without any opening. When held open the eyes were not completely conjugate. Pupils were 3 mm and not reactive. Corneal reflex was absent. Oculocephalic reflex was absent. She did not respond to visual threat or loud clap. She did not follow command or look up to command when the eyes were held open. The face was symmetric. Nailbed pressure of the left upper extremity caused extensor posturing. It also seemed increased tone in the legs with some jerking of the r ight ankle. The right arm was chronically in a contracted state from previous stroke. Both legs were extremely rigid and could not be bent. Toes were upgoing bilaterally. Nailbed pressure caused a triple flexion response and eventually fatigued. Review of Relevant I have reviewed the following items caesar (where applicable) has been applied. Labs Laboratory Tests Test 11/27/18 09:04 11/27/18 09:07 11/27/18 09:12 11/27/18 09:39 O2 Saturation 96 % (92-99) Arterial Blood pH 7.40 (7.35-7.45) Arterial Blood pH (Temp corrected) 7.34 Arterial Blood pCO2 at Patient Temp 27 mmHg (35-46) Arterial Blood pCO2 (Temp correct) 33 mmHg Arterial Blood pO2 at Patient Temp 87 mmHg (65-108) Arterial Blood pO2 (Temp corrected) 113 mmHg Arterial Blood HCO3 16 mmol/L (21-28) Arterial Blood Base Excess -7 mmol/L (-3-3) FiO2 100% White Blood Count 19.1 x10^3/uL (4.0-11.0) Red Blood Count 5.48 x10^6/uL (3.50-5.40) Hemoglobin 14.8 g/dL (12.0-15.5) Hematocrit 45.0 % (36.0-47.0) Mean Corpuscular Volume 82 fL (79-100) Mean Corpuscular Hemoglobin 27 pg (25-35) Mean Corpuscular Hemoglobin Concent 33 g/dL (31-37) Red Cell Distribution Width 14.5 % (11.5-14.5) Platelet Count 286 x10^3/uL (140-400) Neutrophils (%) (Auto) 90 % (31-73) Lymphocytes (%) (Auto) 5 % (24-48) Monocytes (%) (Auto) 4 % (0-9) Eosinophils (%) (Auto) 0 % (0-3) Basophils (%) (Auto) 1 % (0-3) Neutrophils # (Auto) 17.2 x10^3/uL (1.8-7.7) Lymphocytes # (Auto) 1.0 x10^3/uL (1.0-4.8) Monocytes # (Auto) 0.8 x10^3/uL (0.0-1.1) Eosinophils # (Auto) 0.0 x10^3/uL (0.0-0.7) Basophils # (Auto) 0.1 x10^3/uL (0.0-0.2) Segmented Neutrophils % 60 % (35-66) Band Neutrophils % 32 % (0-9) Lymphocytes % 4 % (24-48) Monocytes % 4 % (0-10) Platelet Estimate Adequate (ADEQUATE) Large Platelets Few Ovalocytes Few Prothrombin Time 14.2 SEC (11.7-14.0) Prothromb Time International Ratio 1.1 (0.8-1.1) Sodium Level 142 mmol/L (136-145) Potassium Level 4.0 mmol/L (3.5-5.1) Chloride Level 103 mmol/L (98-107) Carbon Dioxide Level 20 mmol/L (21-32) Anion Gap 19 (6-14) Blood Urea Nitrogen 22 mg/dL (7-20) Creatinine 2.4 mg/dL (0.6-1.0) Estimated GFR (Cockcroft-Gault) 20.7 BUN/Creatinine Ratio 9 (6-20) Glucose Level 239 mg/dL (70-99) Lactic Acid Level 10.0 mmol/L (0.4-2.0) Calcium Level 10.3 mg/dL (8.5-10.1) Magnesium Level 2.0 mg/dL (1.8-2.4) Total Bilirubin 0.5 mg/dL (0.2-1.0) Aspartate Amino Transf (AST/SGOT) 40 U/L (15-37) Alanine Aminotransferase (ALT/SGPT) 26 U/L (14-59) Alkaline Phosphatase 97 U/L (46-116) Creatine Kinase 607 U/L (26-192) Troponin I Quantitative 4.148 ng/mL (0.000-0.055) DM-Sxs-M-Type Natriuretic Peptide 61832 pg/mL (0-124) Total Protein 8.4 g/dL (6.4-8.2) Albumin 3.7 g/dL (3.4-5.0) Albumin/Globulin Ratio 0.8 (1.0-1.7) Lipase 323 U/L (73-393) Urine Collection Type U cath Urine Color Yellow Urine Clarity Clear Urine pH 5.5 Urine Specific Stowell 1.020 Urine Protein >=300 mg/dL (NEG-TRACE) Urine Glucose (UA) Negative mg/dL (NEG) Urine Ketones (Stick) Trace mg/dL (NEG) Urine Blood Large (NEG) Urine Nitrite Negative (NEG) Urine Bilirubin Negative (NEG) Urine Urobilinogen Dipstick 1.0 mg/dL (0.2 mg/dL) Urine Leukocyte Esterase Negative (NEG) Urine RBC 11-20 /HPF (0-2) Urine WBC 1-4 /HPF (0-4) Urine Squamous Epithelial Cells Few /LPF Urine Renal Epithelial Cells Few /LPF Urine Amorphous Sediment Present /HPF Urine Bacteria Few /HPF (0-FEW) Urine Hyaline Casts Few /HPF Urine Mucus Mod /LPF Influenza Type A Antigen Negative (NEGATIVE) Influenza Type B Antigen Negative (NEGATIVE) Test 11/28/18 04:00 Creatinine 2.0 mg/dL (0.6-1.0) Estimated GFR (Cockcroft-Gault) 30.9 Laboratory Tests Test 11/28/18 04:00 Creatinine 2.0 mg/dL (0.6-1.0) Estimated GFR (Cockcroft-Gault) 30.9 Microbiology 11/27/18 Blood Culture - Preliminary, Resulted NO GROWTH AFTER 1 DAY Medications Current Medications Sodium Chloride 1,000 ml @ 1,000 mls/hr Q1H IV Last administered on 11/27/18at 09:27; Start 11/27/18 at 09:04; Stop 11/27/18 at 10:03; Status DC Albuterol/ Ipratropium (Duoneb) 3 ml 1X ONCE NEB Last administered on 11/27/18at 10:46; Start 11/27/18 at 09:15; Stop 11/27/18 at 09:22; Status DC Methylprednisolone Sodium Succinate (SOLU-Medrol 125MG VIAL) 125 mg 1X ONCE IV Last administered on 11/27/18at 09:34; Start 11/27/18 at 09:15; Stop 11/27/18 at 09:22; Status DC Sodium Chloride 1,000 ml @ 1,000 mls/hr 1X ONCE IV Last administered on 11/27/18at 09:27; Start 11/27/18 at 09:15; Stop 11/27/18 at 10:14; Status DC Acetaminophen (Tylenol Supp) 650 mg 1X ONCE [place] Last administered on 11/27/18at 09:34; Start 11/27/18 at 09:15; Stop 11/27/18 at 09:22; Status DC Piperacillin Sod/ Tazobactam Sod 3.375 gm/Sodium Chloride 50 ml @ 100 mls/hr 1X ONCE IV Last administered on 11/27/18at 09:46; Start 11/27/18 at 09:30; Stop 11/27/18 at 09:59; Status DC Vancomycin HCl 250 ml @ 250 mls/hr 1X ONCE IV Last administered on 11/27/18at 10:17; Start 11/27/18 at 09:30; Stop 11/27/18 at 10:29; Status DC Aspirin (Aspirin Rectal Supp) 600 mg 1X STAT VA Last administered on 11/27/18at 10:17; Start 11/27/18 at 10:03; Stop 11/27/18 at 10:06; Status DC Sodium Chloride 1,000 ml @ 150 mls/hr Q6H40M IV ; Start 11/27/18 at 10:16; Stop 11/27/18 at 11:43; Status DC Labetalol HCl (Normodyne Iv Push) 10 mg 1X ONCE IVP Last administered on 11/27/18at 11:02; Start 11/27/18 at 11:00; Stop 11/27/18 at 11:01; Status DC Amino Acids/ Glycerin/ Electrolytes 1,000 ml @ 100 mls/hr Q10H IV Last administered on 11/28/18at 10:06; Start 11/27/18 at 12:30 Vancomycin HCl (Vanco Per Pharmacy) 1 each PRN DAILY PRN MC SEE COMMENTS Last administered on 11/28/18at 12:13; Start 11/27/18 at 11:45 Piperacillin Sod/ Tazobactam Sod (Zosyn Per Pharmacy) 1 each PRN DAILY PRN MC SEE COMMENTS; Start 11/27/18 at 11:45 Pantoprazole Sodium (PROTONIX VIAL for IV PUSH) 40 mg DAILYAC IVP Last administered on 11/28/18at 07:50; Start 11/28/18 at 07:30 Pantoprazole Sodium (PROTONIX VIAL for IV PUSH) 40 mg 1X ONCE IVP Last administered on 11/27/18at 12:10; Start 11/27/18 at 12:30; Stop 11/27/18 at 12:31; Status DC Heparin Sodium (Porcine) (Heparin Sodium) 5,000 unit Q8HRS SQ ; Start 11/27/18 at 14:00; Stop 11/27/18 at 11:57; Status DC Labetalol HCl (Normodyne Iv Push) 20 mg PRN Q2HR PRN IVP HYPERTENSION Last administered on 11/28/18at 07:50; Start 11/27/18 at 11:45 Acetaminophen (Tylenol) 500 mg PRN Q6HRS PRN PO MILD PAIN / TEMP; Start 11/27/18 at 11:45 Acetaminophen (Tylenol Supp) 325 mg PRN Q6HRS PRN VA MILD PAIN / TEMP Last administered on 11/27/18at 19:47; Start 11/27/18 at 11:45 Ondansetron HCl (Zofran) 4 mg PRN Q6HRS PRN IV NAUSEA/VOMITING; Start 11/27/18 at 11:45 Morphine Sulfate (Morphine Sulfate) 1 mg PRN Q2HR PRN IV PAIN; Start 11/27/18 at 11:45 Albuterol/ Ipratropium (Duoneb) 3 ml RTQID NEB Last administered on 11/28/18at 07:44; Start 11/27/18 at 12:00; Stop 11/28/18 at 11:46; Status DC Piperacillin Sod/ Tazobactam Sod 2.25 gm/Sodium Chloride 50 ml @ 100 mls/hr Q6HRS IV Last administered on 11/28/18at 06:00; Start 11/27/18 at 17:00 Nicardipine HCl 50 mg/Sodium Chloride 250 ml @ 25 mls/hr CONT PRN IV SEE I/O RECORD Last administered on 11/28/18at 03:00; Start 11/27/18 at 12:00 Metoprolol Tartrate (Lopressor Vial) 10 mg Q6HRS IVP Last administered on 11/28/18at 06:00; Start 11/27/18 at 15:00 Vancomycin HCl (Vancomycin Random Level) 1 each 1X ONCE MC ; Start 11/29/18 at 05:00; Stop 11/29/18 at 05:01 Active Scripts Active Reported Pravastatin Sodium 20 Mg Tablet 1 Tab PO QHS Milk Of Magnesia (Magnesium Hydroxide) 400 Mg/5 Ml Oral.susp 400 Mg PO DAILY Metoprolol Tartrate 100 Mg Tablet 100 Mg PO BID Metformin Hcl 1,000 Mg Tablet 1,000 Mg PO BIDWMEALS Hydralazine Hcl 50 Mg Tablet 50 Mg PO QID Eucerin Skin Calming (Emollient Combination No.69) 396 Gm Cream..g. 396 Gm TP HS Escitalopram Oxalate 10 Mg Tablet 10 Mg PO DAILY Amlodipine Besylate 10 Mg Tablet 10 Mg PO DAILY Tylenol (Acetaminophen) 325 Mg Tablet 650 Mg PO PRN Q4HRS PRN Vitals/I & O Vital Sign - Last 24 Hours 11/27/18 11/27/18 11/27/18 11/27/18 15:43 15:49 16:00 16:00 Pulse 109 102 Resp 13 B/P (MAP) 171/108 166/115 (132) Pulse Ox 98 98 O2 Delivery Venturi Mask Venturi Mask Venturi Mask O2 Flow Rate 15.0 15.0 15.0 11/27/18 11/27/18 11/27/18 11/27/18 17:00 18:00 19:00 19:41 Temp 102.0 102.0 Pulse 101 96 93 Resp 13 12 11 B/P (MAP) 166/116 (133) 162/98 (119) 172/101 (124) Pulse Ox 98 98 98 98 O2 Delivery Venturi Mask Venturi Mask Venturi Mask Venturi Mask O2 Flow Rate 15.0 15.0 15.0 11/27/18 11/27/18 11/27/18 11/27/18 19:47 20:00 20:00 21:00 Temp 102.0 102.0 Pulse 94 91 90 Resp 11 11 B/P (MAP) 172/101 178/109 (132) 178/109 (132) Pulse Ox 98 98 O2 Delivery Venturi Mask Venturi Mask Venturi Mask O2 Flow Rate 15.0 11/27/18 11/27/18 11/27/18 11/28/18 22:00 23:00 23:47 00:00 Temp 101.5 101.7 101.5 101.7 Pulse 91 92 92 Resp 12 13 B/P (MAP) 158/94 (115) 173/101 (125) 173/101 Pulse Ox 96 97 O2 Delivery Venturi Mask Venturi Mask Venturi Mask O2 Flow Rate 15.0 11/28/18 11/28/18 11/28/18 11/28/18 00:00 01:00 02:00 03:00 Temp 101.7 101.3 101.3 101.7 101.3 101.3 Pulse 87 86 84 87 Resp 14 13 14 11 B/P (MAP) 174/104 (127) 174/104 (127) 189/107 (134) 188/110 (136) Pulse Ox 98 96 97 97 O2 Delivery Venturi Mask Venturi Mask Venturi Mask Venturi Mask 11/28/18 11/28/18 11/28/18 11/28/18 04:00 04:00 05:00 06:00 Temp 101.3 101.5 101.7 101.3 101.5 101.7 Pulse 101 103 93 Resp 13 14 14 B/P (MAP) 149/88 (108) 145/90 (108) 149/82 (104) Pulse Ox 98 94 95 O2 Delivery Venturi Mask Venturi Mask Venturi Mask Venturi Mask O2 Flow Rate 15.0 11/28/18 11/28/18 11/28/18 11/28/18 06:00 07:00 07:44 07:50 Temp 101.3 101.3 Pulse 101 93 93 Resp 12 B/P (MAP) 156/82 140/82 (101) 140/82 Pulse Ox 94 95 O2 Delivery Venturi Mask Venturi Mask O2 Flow Rate 10.0 11/28/18 11/28/18 11/28/18 11/28/18 08:00 08:00 09:00 10:00 Pulse 93 89 87 Resp 14 16 16 B/P (MAP) 121/78 (92) 138/81 (100) 140/82 (101) Pulse Ox 94 100 99 O2 Delivery Venturi Mask Venturi Mask Venturi Mask Venturi Mask O2 Flow Rate 15.0 11/28/18 11/28/18 11/28/18 11/28/18 11:00 11:43 12:00 12:00 Temp 99.9 99.9 Pulse 86 88 Resp 15 11 B/P (MAP) 152/86 (108) 156/88 (110) Pulse Ox 100 100 100 O2 Delivery Venturi Mask Venturi Mask Venturi Mask Venturi Mask O2 Flow Rate 10.0 15.0 11/28/18 11/28/18 13:00 15:00 Temp 100.4 100.4 Pulse 88 91 Resp 20 20 B/P (MAP) 151/88 (109) 156/88 (110) Pulse Ox 99 100 O2 Delivery Nasal Cannula Nasal Cannula O2 Flow Rate 5.0 5.0 Intake and Output 11/27/18 11/27/18 11/28/18 15:00 23:00 07:00 Intake Total 2300 ml 474 ml 1450 ml Output Total 1000 ml 550 ml 775 ml Balance 1300 ml -76 ml 675 ml LUTHER FRANKLIN MD Nov 28, 2018 15:46
--- NOTE | 2018-11-28 22:38 | NUR ---
Patient has had several family members visit [facility]. Daughter Carol discussed comfort care with this RN but as of now would like to proceed with plan of care and re-assess comfort care options in the morning.
[2018-11-29] MEDS: PIPERACILLIN/TAZOBACTAM 2.25 GM in IV NORMAL SALINE 50ML 50 ML IV SCH ×4 (01:09→17:25)
[2018-11-29 03:00] VITALS: BP 186/105
[2018-11-29] MEDS ORDERED: VANCOMYCIN RANDOM LEVEL. MC ONE (05:00)
[2018-11-29] MEDS: AMINO AC 3%/ELECTROLYTE/GLYCER 1,000 ML IV SCH (05:45)
[2018-11-29] MEDS: METOPROLOL TARTRATE 5 MG/5 ML VIAL. IVP SCH ×2 (05:45→12:00)
[2018-11-29] MEDS: PANTOPRAZOLE IV PUSH 40 MG VIAL. IVP SCH (08:46)
[2018-11-29 08:54] VITALS: BP 215/135
[2018-11-29] MEDS: LABETALOL 20 MG/4 ML DISP.SYRIN. IVP PRN ×3 (09:23→22:18)
--- NOTE | 2018-11-29 10:24 | PDOC ---
PROGRESS NOTES Assessment Problems Medical Problems: (1) Acute hypoxemic respiratory failure Status: Acute (2) Acute intra-cranial hemorrhage Status: Acute (3) Altered level of consciousness Status: Acute (4) HCAP (healthcare-associated pneumonia) Status: Acute (5) Heart failure Status: Acute (6) History of CVA (cerebrovascular accident) Status: Acute (7) Hypercalcemia Status: Acute (8) Hypoxia Status: Acute (9) NSTEMI (non-ST elevated myocardial infarction) Status: Acute (10) Renal insufficiency Status: Acute (11) Right hemiplegia Status: Acute (12) Sepsis Status: Acute (13) Severe sepsis Status: Acute (14) Uncontrolled diabetes mellitus Status: Acute On comfort care Intracranial hemorrhage of the roberto superiorly. Coma. Plan Continue comfort care Subjective None Objective Vital Signs Date Time Temp Pulse Resp B/P (MAP) Pulse Ox O2 Delivery O2 Flow Rate FiO2 11/29/18 09:23 91 215/135 11/29/18 08:54 16 86 Nasal Cannula 4.0 11/29/18 03:00 100.0 100.0 Intake and Output 11/29/18 06:59 Intake Total 1198 ml Output Total 2695 ml Balance -1497 ml Intake IV Total 1198 ml Output Urine Total 2695 ml PHYSICAL EXAM Eyes closed, appears comfortable CN: not tested Muscle tone: spastic. Muscle strength: withdrawal reflexes only DTR: 1+ Plantar reflex: silent Gait: not examined in bed. Sensory exam: not testable. Cerebellar: not testable Review of Relevant I have reviewed the following items caesar (where applicable) has been applied. Labs Laboratory Tests Test 11/27/18 12:50 11/28/18 04:00 Nasal Screen MRSA (PCR) Negative (Negative) Creatinine 2.0 mg/dL (0.6-1.0) Estimated GFR (Cockcroft-Gault) 30.9 Microbiology 11/27/18 Blood Culture - Preliminary, Resulted NO GROWTH AFTER 2 DAYS Medications Current Medications Sodium Chloride 1,000 ml @ 1,000 mls/hr Q1H IV Last administered on 11/27/18at 09:27; Start 11/27/18 at 09:04; Stop 11/27/18 at 10:03; Status DC Albuterol/ Ipratropium (Duoneb) 3 ml 1X ONCE NEB Last administered on 11/27/18at 10:46; Start 11/27/18 at 09:15; Stop 11/27/18 at 09:22; Status DC Methylprednisolone Sodium Succinate (SOLU-Medrol 125MG VIAL) 125 mg 1X ONCE IV Last administered on 11/27/18at 09:34; Start 11/27/18 at 09:15; Stop 11/27/18 at 09:22; Status DC Sodium Chloride 1,000 ml @ 1,000 mls/hr 1X ONCE IV Last administered on 11/27/18at 09:27; Start 11/27/18 at 09:15; Stop 11/27/18 at 10:14; Status DC Acetaminophen (Tylenol Supp) 650 mg 1X ONCE [place] Last administered on 11/27/18at 09:34; Start 11/27/18 at 09:15; Stop 11/27/18 at 09:22; Status DC Piperacillin Sod/ Tazobactam Sod 3.375 gm/Sodium Chloride 50 ml @ 100 mls/hr 1X ONCE IV Last administered on 11/27/18at 09:46; Start 11/27/18 at 09:30; Stop 11/27/18 at 09:59; Status DC Vancomycin HCl 250 ml @ 250 mls/hr 1X ONCE IV Last administered on 11/27/18at 10:17; Start 11/27/18 at 09:30; Stop 11/27/18 at 10:29; Status DC Aspirin (Aspirin Rectal Supp) 600 mg 1X STAT [place] Last administered on 11/27/18at 10:17; Start 11/27/18 at 10:03; Stop 11/27/18 at 10:06; Status DC Sodium Chloride 1,000 ml @ 150 mls/hr Q6H40M IV ; Start 11/27/18 at 10:16; Stop 11/27/18 at 11:43; Status DC Labetalol HCl (Normodyne Iv Push) 10 mg 1X ONCE IVP Last administered on 11/27/18at 11:02; Start 11/27/18 at 11:00; Stop 11/27/18 at 11:01; Status DC Amino Acids/ Glycerin/ Electrolytes 1,000 ml @ 100 mls/hr Q10H IV Last administered on 11/29/18at 05:46; Start 11/27/18 at 12:30 Vancomycin HCl (Vanco Per Pharmacy) 1 each PRN DAILY PRN MC SEE COMMENTS Last administered on 11/28/18at 12:13; Start 11/27/18 at 11:45 Piperacillin Sod/ Tazobactam Sod (Zosyn Per Pharmacy) 1 each PRN DAILY PRN MC SEE COMMENTS; Start 11/27/18 at 11:45 Pantoprazole Sodium (PROTONIX VIAL for IV PUSH) 40 mg DAILYAC IVP Last administered on 11/29/18at 08:53; Start 11/28/18 at 07:30 Pantoprazole Sodium (PROTONIX VIAL for IV PUSH) 40 mg 1X ONCE IVP Last administered on 11/27/18at 12:10; Start 11/27/18 at 12:30; Stop 11/27/18 at 12:31; Status DC Heparin Sodium (Porcine) (Heparin Sodium) 5,000 unit Q8HRS SQ ; Start 11/27/18 at 14:00; Stop 11/27/18 at 11:57; Status DC Labetalol HCl (Normodyne Iv Push) 20 mg PRN Q2HR PRN IVP HYPERTENSION Last administered on 11/29/18at 09:23; Start 11/27/18 at 11:45 Acetaminophen (Tylenol) 500 mg PRN Q6HRS PRN PO MILD PAIN / TEMP; Start 11/27/18 at 11:45 Acetaminophen (Tylenol Supp) 325 mg PRN Q6HRS PRN [place] MILD PAIN / TEMP Last administered on 11/27/18at 19:47; Start 11/27/18 at 11:45 Ondansetron HCl (Zofran) 4 mg PRN Q6HRS PRN IV NAUSEA/VOMITING; Start 11/27/18 at 11:45 Morphine Sulfate (Morphine Sulfate) 1 mg PRN Q2HR PRN IV PAIN; Start 11/27/18 at 11:45 Albuterol/ Ipratropium (Duoneb) 3 ml RTQID NEB Last administered on 11/28/18at 07:44; Start 11/27/18 at 12:00; Stop 11/28/18 at 11:46; Status DC Piperacillin Sod/ Tazobactam Sod 2.25 gm/Sodium Chloride 50 ml @ 100 mls/hr Q6HRS IV Last administered on 11/29/18at 05:46; Start 11/27/18 at 17:00 Nicardipine HCl 50 mg/Sodium Chloride 250 ml @ 25 mls/hr CONT PRN IV SEE I/O RECORD Last administered on 11/28/18at 03:00; Start 11/27/18 at 12:00 Metoprolol Tartrate (Lopressor Vial) 10 mg Q6HRS IVP Last administered on 11/29/18at 05:46; Start 11/27/18 at 15:00 Vancomycin HCl (Vancomycin Random Level) 1 each 1X ONCE MC ; Start 11/29/18 at 05:00; Stop 11/29/18 at 05:01; Status DC Active Scripts Active Reported Pravastatin Sodium 20 Mg Tablet 1 Tab PO QHS Milk Of Magnesia (Magnesium Hydroxide) 400 Mg/5 Ml Oral.susp 400 Mg PO DAILY Metoprolol Tartrate 100 Mg Tablet 100 Mg PO BID Metformin Hcl 1,000 Mg Tablet 1,000 Mg PO BIDWMEALS Hydralazine Hcl 50 Mg Tablet 50 Mg PO QID Eucerin Skin Calming (Emollient Combination No.69) 396 Gm Cream..g. 396 Gm TP HS Escitalopram Oxalate 10 Mg Tablet 10 Mg PO DAILY Amlodipine Besylate 10 Mg Tablet 10 Mg PO DAILY Tylenol (Acetaminophen) 325 Mg Tablet 650 Mg PO PRN Q4HRS PRN Vitals/I & O Vital Sign - Last 24 Hours 11/28/18 11/28/18 11/28/18 11/28/18 11:00 11:43 12:00 12:00 Temp 99.9 99.9 Pulse 86 88 Resp 15 11 B/P (MAP) 152/86 (108) 156/88 (110) Pulse Ox 100 100 100 O2 Delivery Venturi Mask Venturi Mask Venturi Mask Venturi Mask O2 Flow Rate 10.0 15.0 11/28/18 11/28/18 11/28/18 11/28/18 13:00 15:00 17:37 19:00 Temp 100.4 100.4 100.4 100.4 Pulse 88 91 98 86 Resp 20 20 12 B/P (MAP) 151/88 (109) 156/88 (110) 173/98 183/106 (131) Pulse Ox 99 100 99 O2 Delivery Nasal Cannula Nasal Cannula Nasal Cannula O2 Flow Rate 5.0 5.0 2.0 11/28/18 11/28/18 11/28/18 11/28/18 19:41 20:00 22:28 23:00 Temp 100.5 100.5 Pulse 86 76 78 Resp 11 B/P (MAP) 183/106 182/104 185/104 (131) Pulse Ox 100 O2 Delivery Nasal Cannula Nasal Cannula O2 Flow Rate 2.0 2.0 11/29/18 11/29/18 11/29/18 11/29/18 03:00 05:46 08:54 09:23 Temp 100.0 100.0 Pulse 74 76 91 91 Resp 11 16 B/P (MAP) 186/105 (132) 197/111 215/135 (161) 215/135 Pulse Ox 100 86 O2 Delivery Nasal Cannula Nasal Cannula O2 Flow Rate 2.0 4.0 Intake and Output 11/28/18 11/28/18 11/29/18 14:59 22:59 06:59 Intake Total 70 ml 1128 ml Output Total 945 ml 1100 ml 650 ml Balance -875 ml 28 ml -650 ml MONROE BUSH MD Nov 29, 2018 10:24
[2018-11-29 10:56] VITALS: BP 183/113
--- NOTE | 2018-11-29 12:09 | PDOC2 ---
PALLIATIVE CARE Palliative Care Note Palliative Care Consult requested by Dr. Moseley to address plan of care. Medical Assessment per medical record; Assessment 1. Intracranial hemorrhage of the roberto and going up superiorly. She continues to remain in a coma. She retains her ability to breathe but I anticipate as pr essure increases with cerebral damage and hydrocephalus that this will compress the medulla and she will stop breathing. The family has made her a DO NOT RESUSCITATE. They plan on transitioning her care to comfort as the priority beginning tonight as soon as the remaining family members have the opportunity to visit. I support the family's approach as prognosis for neurologic recovery approaches hopeless. The examination today reveals increased tone in the legs as well as the left arm. She now has extensor posturing as well as clonus in the right ankle. The examination has deteriorated. 2. She may be developing hydrocephalus. Intervention is not indicated because of the shift of care to comfort rather than restorative. 3. Non-ST segment elevation myocardial infarction: Likely a consequence of the neurologic injury 4. Uncontrolled hypertension which likely contributed to the hemorrhage 5. Uncontrolled diabetes 6. Sepsis syndrome with acute kidney injury and markedly elevated lactic acid. All of these underlying health issues worsen the prognosis which already approaches hopeless. Spoke with daughter Lena who states she would be coming to the hospital soon. Will meet and discuss plan. 1300 Spoke with Lena after she spoke with Dr. Julio. Outside the Hospital DNR/DNI signed. She does not want to make any decisions until other family members arriver around 6pm. She does not want her mother to go back to [facility]. She prefers [place] in [place]. Above reviewed with Cyndee MACIAS. 1924 Met with daughter LenaAidee; Claudia daughter in-law; Family unable to be here; Izzy Yo, Luis Palumbo and patient's son Conrad who is incarcerated. Reviewed Medical Condition; Intracranial hemorrhage; DM; HTN; acute kidney injury. Daughter stated (before completion of medical review)---"My mother is brain " "That's what I was told" Informed that her mother is not brain --she is still able to breath on her own, her heart is beating. Because of the bleed in her brain she likely will not get back to who she was. Lena indicated that she was concerned about care prior to her arrival at [facility]. Brief discussion about comfort care. Lena replied "I wanted more family members here before making this decision---I'm alone in making these decisions." Lena indicated she was upset and could "kill myself" Lena developed nose bleed and family stated that they were going to take her to the ER so she could be seen. Will continue more conversation in am. Family is aware medication is being pro vided for comfort and monitoring blood pressure. Kaylene BERNAL Nursing [employer] aware of above. JOVAN JAMA Nov 29, 2018 12:09
[2018-11-29] MEDS: SCOPOLAMINE 1.5MG PATCH. TD SCH (13:40)
--- NOTE | 2018-11-29 13:48 | PDOC ---
[employer] PROGRESS NOTE Chief Complaint Chief Complaint Parenchymal hemorrhage to roberto, midbrain and right thalamus Possible hydrocephalus Non-STEMI History of CVA �3 with right hand contracture Hypertensive with recent crisis Hyperlipidemia Type 2 Diabetes Dementia Severe sepsis with DUANE Functional quadriplegia Hypoxemic respiratory failure Troponin 4 History of Present Illness History of Present Illness 11/29/18 Pt seen/examined at beside Pt's pupils are nonreactive bilaterally + Babinski sign bilaterally DW family regarding hospice/palliative care Pt is currently DNR 11/28/18 Pt seen/examined in the ICU Pt's pupils are non reactive bilaterally and + Babinski sign bilaterally DW family regarding pt's mental status Pt is currently DNR Chart Reviewed Vitals/I&O Vitals/I&O: Vital Signs Date Time Temp Pulse Resp B/P (MAP) Pulse Ox O2 Delivery O2 Flow Rate FiO2 11/29/18 13:41 87 183/113 11/29/18 10:56 98.3 18 92 Nasal Cannula 4.0 98.3 I & O 11/28/18 11/28/18 11/29/18 15:00 23:00 07:00 Intake Total 70 ml 1128 ml Output Total 1330 ml 700 ml 650 ml Balance -1260 ml 428 ml -650 ml Physical Exam Physical Exam: General: mild distress, Other (NRB, no tachypnea, no retractions) Lungs: Normal air movement, Other (crackles) Heart: S1S2, regular rhythm, no thrills, no rubs, no gallops, slightly tachycardic Breasts: Normal, Rt breast nml w/o mass, Lt breast nml w/o mass, Nipples normal Abdomen: Normal bowel sounds, Soft, No tenderness, No hepatosplenomegaly, No masses Neuro: Pupils non-reactive to light bilaterally, + Babinski sign bilaterally Extremities: No clubbing, Other (chronic rt hand contracture ) Skin: Other (senile skin turgor) Review of Systems Review of Systems: Unable to obtain; patient was unresponsive Assessment and Plan Assessmemt and Plan Problems Medical Problems: (1) Acute hypoxemic respiratory failure Status: Acute (2) Acute intra-cranial hemorrhage Status: Acute (3) Altered level of consciousness Status: Acute (4) HCAP (healthcare-associated pneumonia) Status: Acute (5) Heart failure Status: Acute (6) History of CVA (cerebrovascular accident) Status: Acute (7) Hypercalcemia Status: Acute (8) Hypoxia Status: Acute (9) NSTEMI (non-ST elevated myocardial infarction) Status: Acute (10) Renal insufficiency Status: Acute (11) Right hemiplegia Status: Acute (12) Sepsis Status: Acute (13) Severe sepsis Status: Acute (14) Uncontrolled diabetes mellitus Status: Acute Assessment/Plan Parenchymal hemorrhage to roberto, midbrain and right thalamus Possible hydrocephalus Non-STEMI History of CVA �3 with right hand contracture Hypertensive with recent crisis Hyperlipidemia Type 2 Diabetes Dementia Severe sepsis with DUANE Functional quadriplegia Hypoxemic respiratory failure Troponin 4 Plan: ICU monitoring Continue comfort care Wiseman to RADHA PPN IV Procalamine Appreciate sub-speciality input Comment Review of Relevant I have reviewed the following items caesar (where applicable) has been applied. Medications: Current Medications Medications (Trade) Dose Ordered Sig/Ángel Route PRN Reason Start Time Stop Time Status Last Admin Dose Admin Vancomycin HCl (Vancomycin Random Level) 1 each 1X ONCE MC 11/29/18 05:00 11/29/18 05:01 DC 11/29/18 12:58 Scopolamine (Transderm-Scop) 1 patch Q3DAYS TD 11/29/18 13:00 11/29/18 13:41 Clonidine HCl (Catapres Tts-1) 1 patch WEEKLY TD 11/29/18 14:00 11/29/18 13:41 MARII FRYE III DO Nov 29, 2018 13:47
[2018-11-29] MEDS ORDERED: cloNIDine TTS-1 1 PATCH PATCH.TDWK TD SCH (14:00)
[2018-11-29 15:00] VITALS: BP 169/117
--- NOTE | 2018-11-29 15:50 | NUR ---
SS following for discharge planning. SS received notification that pt was from [facility], ; fax [phone]. SS contacted [facility] and verified that pt is a LTC resident from there facility and is able to return when medically stable for discharge. SS received phone contact from Palliative Care RN, Laurie, stating that pt's family is requesting that referral be sent to [facility], [place], [facility], ; fax [phone], for new placement. SS phoned and faxed referral. Kenton GUTIERREZ, notified.
[2018-11-29 19:00] VITALS: BP 176/111
[2018-11-29 23:00] VITALS: BP 106/111
[2018-11-30] VITALS (7 sets, daily range): BP systolic 170–194; BP diastolic 102–110
[2018-11-30] MEDS: AMINO AC 3%/ELECTROLYTE/GLYCER 1,000 ML IV SCH ×3 (00:20→21:36)
--- NOTE | 2018-11-30 02:00 | NUR ---
Patient attempting to cough, breath sounds are coarse, suction set up, suctioned thick, white sputum-oral care completed. monitoring-vitals are ok except temp 100.1 ax, lukewarm cloth placed on her head.turned, pillows under lower legs,
[2018-11-30] MEDS: LABETALOL 20 MG/4 ML DISP.SYRIN. IVP PRN ×6 (02:09→23:41)
[2018-11-30 05:31] LABS: CREATININE 1.6 mg/dL (0.6-1.0); GFR 39.9
--- NOTE | 2018-11-30 08:11 | PDOC ---
PROGRESS NOTES Chief Complaint Chief Complaint Parenchymal hemorrhage to roberto, midbrain and right thalamus Possible hydrocephalus Non-STEMI History of CVA �3 with right hand contracture Hypertensive with recent crisis Hyperlipidemia Type 2 Diabetes Dementia Severe sepsis with DUANE Functional quadriplegia Hypoxemic respiratory failure Lactic acidosis Comatose History of Present Illness History of Present Illness Ms Umanzor is a 58yo F w/ PMHx left hemispheric stroke with aphasia and right hemiplegia, HTN, HLD, DM2, GERD, Dementia, Bipolar disorder who is a termite control representative resident of SNF who was admitted with altered level of consciousness, 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 Transferred from ICU on 11/29/18. Seen bedside. No pupillary response, Positive babinski sign and imaging reviewed with daughter bedside. She is breathing spontaneously with NCO2 in place, right arm contracted, does not awaken to painful stimuli. VS stable. Long discussion bedside about extremely poor prognosis with palliative care nursing regarding discharge plan to SNF with hospice. Patient is DNR. 11/29/18 Pt seen/examined at beside Pt's pupils are nonreactive bilaterally + Babinski sign bilaterally DW family regarding hospice/palliative care Pt is currently DNR 11/28/18 Pt seen/examined in the ICU Pt's pupils are non reactive bilaterally and + Babinski sign bilaterally DW family regarding pt's mental status Pt is currently DNR Chart Reviewed Vitals Vitals Vital Signs Date Time Temp Pulse Resp B/P (MAP) Pulse Ox O2 Delivery O2 Flow Rate FiO2 11/30/18 06:29 78 182/103 11/30/18 05:12 98.7 12 96 Nasal Cannula 4.0 98.7 Physical Exam Physical Exam General: Not responsive Lungs: Normal air movement, Other (crackles) Heart: S1S2, regular rhythm, no thrills, no rubs, no gallops, slightly tachycardic Breasts: Normal, Rt breast nml w/o mass, Lt breast nml w/o mass, Nipples normal Abdomen: Normal bowel sounds, Soft, No tenderness, No hepatosplenomegaly, No masses Neuro: Pupils non-reactive to light bilaterally, + Babinski sign bilaterally Extremities: No clubbing, Other (chronic rt hand contracture ) Skin: Other (senile skin turgor) Labs LABS Laboratory Tests Test 11/30/18 04:35 Creatinine 1.6 mg/dL (0.6-1.0) Estimated GFR (Cockcroft-Gault) 39.9 Assessment and Plan Assessmemt and Plan Problems Medical Problems: (1) Acute hypoxemic respiratory failure Status: Acute (2) Acute intra-cranial hemorrhage Status: Acute (3) Altered level of consciousness Status: Acute (4) HCAP (healthcare-associated pneumonia) Status: Acute (5) Heart failure Status: Acute (6) History of CVA (cerebrovascular accident) Status: Acute (7) Hypercalcemia Status: Acute (8) Hypoxia Status: Acute (9) NSTEMI (non-ST elevated myocardial infarction) Status: Acute (10) Renal insufficiency Status: Acute (11) Right hemiplegia Status: Acute (12) Sepsis Status: Acute (13) Severe sepsis Status: Acute (14) Uncontrolled diabetes mellitus Status: Acute Comment Review of Relevant I have reviewed the following items caesar (where applicable) has been applied. Labs Laboratory Tests Test 11/30/18 04:35 Creatinine 1.6 mg/dL (0.6-1.0) Estimated GFR (Cockcroft-Gault) 39.9 Laboratory Tests Test 11/30/18 04:35 Creatinine 1.6 mg/dL (0.6-1.0) Estimated GFR (Cockcroft-Gault) 39.9 Microbiology 11/27/18 Blood Culture - Preliminary, Resulted NO GROWTH AFTER 2 DAYS Medications Current Medications Sodium Chloride 1,000 ml @ 1,000 mls/hr Q1H IV Last administered on 11/27/18at 09:27; Start 11/27/18 at 09:04; Stop 11/27/18 at 10:03; Status DC Albuterol/ Ipratropium (Duoneb) 3 ml 1X ONCE NEB Last administered on 11/27/18at 10:46; Start 11/27/18 at 09:15; Stop 11/27/18 at 09:22; Status DC Methylprednisolone Sodium Succinate (SOLU-Medrol 125MG VIAL) 125 mg 1X ONCE IV Last administered on 11/27/18at 09:34; Start 11/27/18 at 09:15; Stop 11/27/18 at 09:22; Status DC Sodium Chloride 1,000 ml @ 1,000 mls/hr 1X ONCE IV Last administered on 11/27/18at 09:27; Start 11/27/18 at 09:15; Stop 11/27/18 at 10:14; Status DC Acetaminophen (Tylenol Supp) 650 mg 1X ONCE TX Last administered on 11/27/18at 09:34; Start 11/27/18 at 09:15; Stop 11/27/18 at 09:22; Status DC Piperacillin Sod/ Tazobactam Sod 3.375 gm/Sodium Chloride 50 ml @ 100 mls/hr 1X ONCE IV Last administered on 11/27/18at 09:46; Start 11/27/18 at 09:30; Stop 11/27/18 at 09:59; Status DC Vancomycin HCl 250 ml @ 250 mls/hr 1X ONCE IV Last administered on 11/27/18at 10:17; Start 11/27/18 at 09:30; Stop 11/27/18 at 10:29; Status DC Aspirin (Aspirin Rectal Supp) 600 mg 1X STAT TX Last administered on 11/27/18at 10:17; Start 11/27/18 at 10:03; Stop 11/27/18 at 10:06; Status DC Sodium Chloride 1,000 ml @ 150 mls/hr Q6H40M IV ; Start 11/27/18 at 10:16; Stop 11/27/18 at 11:43; Status DC Labetalol HCl (Normodyne Iv Push) 10 mg 1X ONCE IVP Last administered on 11/27/18at 11:02; Start 11/27/18 at 11:00; Stop 11/27/18 at 11:01; Status DC Amino Acids/ Glycerin/ Electrolytes 1,000 ml @ 50 mls/hr Q20H IV Last administered on 11/30/18at 00:20; Start 11/27/18 at 12:30 Vancomycin HCl (Vanco Per Pharmacy) 1 each PRN DAILY PRN MC SEE COMMENTS Last administered on 11/28/18at 12:13; Start 11/27/18 at 11:45; Stop 11/29/18 at 17:33; Status DC Piperacillin Sod/ Tazobactam Sod (Zosyn Per Pharmacy) 1 each PRN DAILY PRN MC SEE COMMENTS; Start 11/27/18 at 11:45; Stop 11/29/18 at 17:33; Status DC Pantoprazole Sodium (PROTONIX VIAL for IV PUSH) 40 mg DAILYAC IVP Last administered on 11/29/18at 08:53; Start 11/28/18 at 07:30 Pantoprazole Sodium (PROTONIX VIAL for IV PUSH) 40 mg 1X ONCE IVP Last administered on 11/27/18at 12:10; Start 11/27/18 at 12:30; Stop 11/27/18 at 12:31; Status DC Heparin Sodium (Porcine) (Heparin Sodium) 5,000 unit Q8HRS SQ ; Start 11/27/18 at 14:00; Stop 11/27/18 at 11:57; Status DC Labetalol HCl (Normodyne Iv Push) 20 mg PRN Q2HR PRN IVP HYPERTENSION Last administered on 11/30/18at 06:29; Start 11/27/18 at 11:45 Acetaminophen (Tylenol) 500 mg PRN Q6HRS PRN PO MILD PAIN / TEMP; Start 11/27/18 at 11:45 Acetaminophen (Tylenol Supp) 325 mg PRN Q6HRS PRN TX MILD PAIN / TEMP Last administered on 11/27/18at 19:47; Start 11/27/18 at 11:45 Ondansetron HCl (Zofran) 4 mg PRN Q6HRS PRN IV NAUSEA/VOMITING; Start 11/27/18 at 11:45 Morphine Sulfate (Morphine Sulfate) 1 mg PRN Q2HR PRN IV PAIN; Start 11/27/18 at 11:45 Albuterol/ Ipratropium (Duoneb) 3 ml RTQID NEB Last administered on 11/28/18at 07:44; Start 11/27/18 at 12:00; Stop 11/28/18 at 11:46; Status DC Piperacillin Sod/ Tazobactam Sod 2.25 gm/Sodium Chloride 50 ml @ 100 mls/hr Q6HRS IV Last administered on 11/29/18at 17:25; Start 11/27/18 at 17:00; Stop 11/29/18 at 17:33; Status DC Nicardipine HCl 50 mg/Sodium Chloride 250 ml @ 25 mls/hr CONT PRN IV SEE I/O RECORD Last administered on 11/28/18at 03:00; Start 11/27/18 at 12:00; Stop 11/29/18 at 11:38; Status DC Metoprolol Tartrate (Lopressor Vial) 10 mg Q6HRS IVP Last administered on 11/29/18at 05:46; Start 11/27/18 at 15:00; Stop 11/29/18 at 13:06; Status DC Vancomycin HCl (Vancomycin Random Level) 1 each 1X ONCE MC Last administered on 11/29/18at 12:58; Start 11/29/18 at 05:00; Stop 11/29/18 at 05:01; Status DC Scopolamine (Transderm-Scop) 1 patch Q3DAYS TD Last administered on 11/29/18at 13:41; Start 11/29/18 at 13:00 Clonidine HCl (Catapres Tts-1) 1 patch WEEKLY TD Last administered on 11/29/18at 13:41; Start 11/29/18 at 14:00 Active Scripts Active Reported Pravastatin Sodium 20 Mg Tablet 1 Tab PO QHS Milk Of Magnesia (Magnesium Hydroxide) 400 Mg/5 Ml Oral.susp 400 Mg PO DAILY Metoprolol Tartrate 100 Mg Tablet 100 Mg PO BID Metformin Hcl 1,000 Mg Tablet 1,000 Mg PO BIDWMEALS Hydralazine Hcl 50 Mg Tablet 50 Mg PO QID Eucerin Skin Calming (Emollient Combination No.69) 396 Gm Cream..g. 396 Gm TP HS Escitalopram Oxalate 10 Mg Tablet 10 Mg PO DAILY Amlodipine Besylate 10 Mg Tablet 10 Mg PO DAILY Tylenol (Acetaminophen) 325 Mg Tablet 650 Mg PO PRN Q4HRS PRN Vitals/I & O Vital Sign - Last 24 Hours 11/29/18 11/29/18 11/29/18 11/29/18 08:54 09:23 10:56 13:05 Temp 98.3 98.3 Pulse 91 91 87 87 Resp 18 B/P (MAP) 215/135 (161) 215/135 183/113 (136) 183/113 Pulse Ox 86 92 O2 Delivery Nasal Cannula Nasal Cannula O2 Flow Rate 4.0 4.0 11/29/18 11/29/18 11/29/18 11/29/18 13:41 15:00 19:00 20:00 Temp 98.3 98.3 Pulse 87 88 81 Resp 16 14 B/P (MAP) 183/113 169/117 (134) 176/111 (132) Pulse Ox 96 97 O2 Delivery Nasal Cannula Nasal Cannula Nasal Cannula O2 Flow Rate 3.0 3.0 4.0 11/29/18 11/29/18 11/30/1819 22:18 23:00 02:09 02:09 Temp 98.1 100.1 98.1 100.1 Pulse 81 79 82 82 Resp 16 B/P (MAP) 176/111 106/111 (109) 177/108 (131) 177/108 Pulse Ox 96 98 O2 Delivery Nasal Cannula Nasal Cannula O2 Flow Rate 3.0 4.0 11/30/18 11/30/18 05:12 06:29 Temp 98.7 98.7 Pulse 78 78 Resp 12 B/P (MAP) 182/103 (129) 182/103 Pulse Ox 96 O2 Delivery Nasal Cannula O2 Flow Rate 4.0 Intake and Output 11/29/18 11/29/18 11/30/18 14:59 22:59 06:59 Intake Total 1000 ml Output Total 750 ml 550 ml Balance -750 ml 450 ml YASMIN JAY MD Nov 30, 2018 08:10
[2018-11-30] MEDS: PANTOPRAZOLE IV PUSH 40 MG VIAL. IVP SCH (08:15)
--- NOTE | 2018-11-30 08:54 | NUR ---
SW following pt. Pt is a transfer from ICU and family is requesting placement in a new facility. BRENDA left a voice mail to Britney at [facility], ; fax [phone] requesting a call back regarding referral. Pt's acceptance and admission pending. Will continue to follow.
--- NOTE | 2018-11-30 11:32 | PDOC2 ---
PALLIATIVE CARE Palliative Care Note Palliative Care 0845 Patient seen. Patient remains unresponsive to tactile stimuli. PPN continued. Continued medications for hypertension. No family at bedside. No respiratory distress. Respiratory rate regular and unlabored. 1335. Dr. Wiseman met with Lena and Claudia. Reviewed medical condition. Discussed goals of treatment and plan of care. Lena would like to focus on her mother's comfort with the assistance of hospice. Family has requested [facility] in [place]. Per family [facility] has their own hospice. Spoke with Hareg. GUTIERREZ who will assist with discharge plans. Outside the Hospital Form is completed. JOVAN JAMA Nov 30, 2018 11:32
--- NOTE | 2018-11-30 13:58 | PDOC3 ---
Discharge Summary Visit Information Date of Admission: Nov 27, 2018 Date of Discharge: Dec 02, 2018 Admitting Diagnosis: Acute intracranial hemorrhage Final Diagnosis Problems Medical Problems: (1) Acute hypoxemic respiratory failure Status: Acute (2) Acute intra-cranial hemorrhage Status: Acute (3) Altered level of consciousness Status: Acute (4) HCAP (healthcare-associated pneumonia) Status: Acute (5) Heart failure Status: Acute (6) History of CVA (cerebrovascular accident) Status: Acute (7) Hypercalcemia Status: Acute (8) Hypoxia Status: Acute (9) NSTEMI (non-ST elevated myocardial infarction) Status: Acute (10) Renal insufficiency Status: Acute (11) Right hemiplegia Status: Acute (12) Sepsis Status: Acute (13) Severe sepsis Status: Acute (14) Uncontrolled diabetes mellitus Status: Acute Brief Hospital Course Allergies Allergies Coded Allergies Type Severity Reaction Last Updated Verified No Known Drug Allergies 11/27/18 No Vital Signs Vital Signs Date Time Temp Pulse Resp B/P (MAP) Pulse Ox O2 Delivery O2 Flow Rate FiO2 11/30/18 12:24 75 170/105 11/30/18 10:49 97.8 10 96 Nasal Cannula 2.0 97.8 Lab Results Laboratory Tests Test 11/30/18 04:35 Creatinine 1.6 mg/dL (0.6-1.0) Estimated GFR (Cockcroft-Gault) 39.9 Laboratory Tests Test 11/30/18 04:35 Creatinine 1.6 mg/dL (0.6-1.0) Estimated GFR (Cockcroft-Gault) 39.9 Brief Hospital Course Ms Umanzor is a 58yo F w/ PMHx left hemispheric stroke with aphasia and right hemiplegia, HTN, HLD, DM2, GERD, Dementia, Bipolar disorder who is a snf resident of SNF who was admitted with altered level of consciousness, 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 Transferred from ICU on 11/29/18. Seen by neurology in consultation, given extremely poor prognosis and likely imminent demise in the near future given her areflexia. Still breathing spontaneously, does not appear uncomfortable. Seen bedside. No pupillary response, Positive babinski sign and imaging reviewed with daughter bedside. She is breathing spontaneously with NCO2 in place, right arm contracted, does not awaken to painful stimuli. VS stable. Long discussion bedside about extremely poor prognosis with palliative care nursing regarding discharge plan to SNF with hospice. Patient is DNR. 11/29/18 Pt seen/examined at beside Pt's pupils are nonreactive bilaterally + Babinski sign bilaterally DW family regarding hospice/palliative care Pt is currently DNR 11/28/18 Pt seen/examined in the ICU Pt's pupils are non reactive bilaterally and + Babinski sign bilaterally DW family regarding pt's mental status Pt is currently DNR Chart Reviewed Chief Complaint Parenchymal hemorrhage to roberto, midbrain and right thalamus Possible hydrocephalus Non-STEMI History of CVA �3 with right hand contracture Hypertensive with recent crisis Hyperlipidemia Type 2 Diabetes Dementia Severe sepsis with DUANE Functional quadriplegia Hypoxemic respiratory failure Lactic acidosis Comatose Greater than 30 minutes spent on d/c Discharge Information Condition at Discharge: Comment (Critical) Follow Up: Weeks (1) Disposition/Orders: D/C to Home w/ Hospice Scheduled Emollient Combination No.69 (Eucerin Skin Calming) 396 Gm Cream..g., 396 GM TP HS for dry skin, (Reported) Entered as Reported by: KISHA ARZATE on 11/27/18 1249 Last Action: HELD on 11/27/18 1516 by JENNY BUSH Scheduled PRN Acetaminophen (Feverall) 325 Mg Supp.rect, 325 MG NV PRN Q6HRS PRN for MILD PAIN / TEMP for 30 Days, #120 Prescribed by: YASMIN JAY MD on 11/30/18 1401 Atropine Sulfate (Atropine Sulfate) 2 Ml Drops, 1 DROP SL PRN Q2HR PRN for SECRETIONS for 30 Days, #1 Prescribed by: YASMIN JAY MD on 12/01/18 1135 Lorazepam (Lorazepam Intensol) 2 Mg/1 Ml Oral.conc, 1 MG SL PRN Q6HRS PRN for ANXIETY / AGITATION for 30 Days, #1 Prescribed by: YASMIN JAY MD on 11/30/18 1401 Morphine Sulfate (Morphine Sulfate) 100 Mg/5 Ml Solution, 5 MG SL PRN Q3HRS PRN for PAIN for 30 Days, #1 Prescribed by: YASMIN JAY MD on 11/30/18 1401 Discontinued Medications Acetaminophen (Tylenol) 325 Mg Tablet, 650 MG PO PRN Q4HRS PRN for FEVER, (Reported) Entered as Reported by: KISHA ARZATE on 11/27/18 1242 Last Action: HELD on 11/27/181515 by JENNY BUSH Amlodipine Besylate (Amlodipine Besylate) 10 Mg Tablet, 10 MG PO DAILY for heart, (Reported) Entered as Reported by: KISHA ARZATE on 11/27/18 1243 Last Action: HELD on 11/27/181515 by JENNY BUSH Escitalopram Oxalate (Escitalopram Oxalate) 10 Mg Tablet, 10 MG PO DAILY for ANTI-DEPRESSANT, #30 Ref 0 (Reported) Entered as Reported by: KISHA ARZATE on 11/27/18 1249 Last Action: HELD on 11/27/181515 by JENNY BUSH Hydralazine Hcl (Hydralazine Hcl) 50 Mg Tablet, 50 MG PO QID for heart, (Reported) Entered as Reported by: KISHA ARZATE on 11/27/18 125 Last Action: HELD on 11/27/181515 by JENNY BUSH Magnesium Hydroxide (Milk Of Magnesia) 400 Mg/5 Ml Oral.susp, 400 MG PO DAILY for constipation, (Reported) Entered as Reported by: KISHA ARZATE on 11/27/18 125 Last Action: HELD on 11/27/181515 by JENNY BUSH Metformin Hcl (Metformin Hcl) 1,000 Mg Tablet, 1,000 MG PO BIDWMEALS for sugar, (Reported) Entered as Reported by: KISHA ARZATE on 11/27/18 125 Last Action: HELD on 11/27/181515 by JENNY BUSH Metoprolol Tartrate (Metoprolol Tartrate) 100 Mg Tablet, 100 MG PO BID for FOR HYPERTENSION, #60 Ref 0 (Reported) Entered as Reported by: KISHA ARZATE on 11/27/18 125 Last Action: HELD on 11/27/181515 by JENNY BUSH Pravastatin Sodium (Pravastatin Sodium) 20 Mg Tablet, 1 TAB PO QHS for lipid, #90 Ref 3 (Reported) Entered as Reported by: KISHA ARZATE on 11/27/18 125 Last Action: HELD on 11/27/181515 by YASMIN DOMINGUEZ MD Nov 30, 2018 13:58
[2018-11-30] MEDS ORDERED: LORazepam INTENSOL 2 MG/ML ORAL.CONC SL PRN (14:00)
[2018-11-30] MEDS ORDERED: MORPHINE SULFATE 20 MG/ML CONC SOLUTION. SL PRN (14:00)
[2018-11-30] MEDS ORDERED: ACET325S14 PR (14:01)
[2018-11-30] MEDS ORDERED: MORP100S3 SL (14:01)
[2018-11-30] MEDS ORDERED: LORA2ORA7 SL (14:01)
--- NOTE | 2018-11-30 14:02 | SNU/HH DC ---
DISCHARGE ORDERS DISCHARGE INFORMATION: DISCHARGE DATE: Dec 01, 2018 FINAL DIAGNOSIS Problems Medical Problems: (1) Acute hypoxemic respiratory failure Status: Acute (2) Acute intra-cranial hemorrhage Status: Acute (3) Altered level of consciousness Status: Acute (4) HCAP (healthcare-associated pneumonia) Status: Acute (5) Heart failure Status: Acute (6) History of CVA (cerebrovascular accident) Status: Acute (7) Hypercalcemia Status: Acute (8) Hypoxia Status: Acute (9) NSTEMI (non-ST elevated myocardial infarction) Status: Acute (10) Renal insufficiency Status: Acute (11) Right hemiplegia Status: Acute (12) Sepsis Status: Acute (13) Severe sepsis Status: Acute (14) Uncontrolled diabetes mellitus Status: Acute CONDITION ON DISCHARGE: Guarded CODE STATUS: Code Status: DNR/DNI HOSPICE: HOSPICE: Yes HOSPICE EVAL & TREAT: Yes POST DISCHARGE ORDERS: ACTIVITY ORDERS: No restrictions WEIGHT BEARING STATUS: No restrictions DIET AFTER DISCHARGE: Regular CHECKS AFTER DISCHARGE: CHECKS AFTER DISCHARGE: Check blood press - daily TREATMENT/EQUIPMENT ORDERS: RESPIRATORY EQUIPMENT NEEDED: Oxygen DISCHARGE MEDICATIONS: Home Meds Active Scripts Atropine Sulfate (Atropine Sulfate) 2 Ml Drops, 1 DROP SL PRN Q2HR PRN for SECRETIONS for 30 Days, #1 DROP Prov:YASMIN JAY MD 12/01/18 Lorazepam (LORAZEPAM INTENSOL) 2 Mg/1 Ml Oral.conc, 1 MG SL PRN Q6HRS PRN for ANXIETY / AGITATION for 30 Days, #1 MISC Prov:YASMIN JAY MD 11/30/18 Acetaminophen (FEVERALL) 325 Mg Supp.rect, 325 MG GA PRN Q6HRS PRN for MILD PAIN / TEMP for 30 Days, #120 SUPP.RECT Prov:YASMIN JAY MD 11/30/18 Morphine Sulfate (MORPHINE SULFATE) 100 Mg/5 Ml Solution, 5 MG SL PRN Q3HRS PRN for PAIN for 30 Days, #1 MISC Prov:YASMIN JAY MD 11/30/18 Reported Medications Emollient Combination No.69 (EUCERIN SKIN CALMING) 396 Gm Cream..g., 396 GM TP HS for dry skin, EACH 11/27/18 Discontinued Reported Medications Pravastatin Sodium (PRAVASTATIN SODIUM) 20 Mg Tablet, 1 TAB PO QHS for lipid, #90 TAB 3 Refills 11/27/18 Magnesium Hydroxide (MILK OF MAGNESIA) 400 Mg/5 Ml Oral.susp, 400 MG PO DAILY for constipation, MISC 11/27/18 Metoprolol Tartrate (METOPROLOL TARTRATE) 100 Mg Tablet, 100 MG PO BID for FOR HYPERTENSION, #60 TAB 0 Refills 11/27/18 Metformin Hcl (METFORMIN HCL) 1,000 Mg Tablet, 1000 MG PO BIDWMEALS for sugar, TAB 11/27/18 Hydralazine Hcl (HYDRALAZINE HCL) 50 Mg Tablet, 50 MG PO QID for heart, TAB 11/27/18 Escitalopram Oxalate (ESCITALOPRAM OXALATE) 10 Mg Tablet, 10 MG PO DAILY for ANTI-DEPRESSANT, #30 TAB 0 Refills 11/27/18 Amlodipine Besylate (AMLODIPINE BESYLATE) 10 Mg Tablet, 10 MG PO DAILY for heart, TAB 11/27/18 Acetaminophen (TYLENOL) 325 Mg Tablet, 650 MG PO PRN Q4HRS PRN for FEVER, TAB 11/27/18 YASMIN JAY MD Nov 30, 2018 14:02
--- NOTE | 2018-11-30 14:24 | NUR ---
Left 2 more Voice mail to [facility] admissions. Acceptance pending.
[2018-11-30] MEDS: ATROPINE 1% OPHTH SOLUTION 5ML BOTTLE. SL PRN (23:36)
[2018-12-01 02:41] VITALS: BP 176/101
[2018-12-01] MEDS: LABETALOL 20 MG/4 ML DISP.SYRIN. IVP PRN ×3 (02:41→12:35)
[2018-12-01 07:00] VITALS: BP 170/98
--- NOTE | 2018-12-01 08:35 | NUR ---
BRENDA following pt. BRENDA spoke with Seda elementary secretary at [facility] and expressed SW has been waiting on a return call from admission since Thursday. Seda reported she will email Britney to call [facility] back. BRENDA left another voice mail to Britney requesting a call back. BRENDA also spoke with pt's daughter, Lena, phone: [phone] and informed her [facility] has not been cooperative in returning a phone call and pt has dc order since yesterday. BRENDA discussed If [facility] does not take pt today, Pt might have to return to [facility]. Lena reported she will have her sister in law that works at the facility contact admin as well. Will continue to follow.
--- NOTE | 2018-12-01 08:35 | PDOC ---
PROGRESS NOTES Assessment Problems Medical Problems: (1) Acute hypoxemic respiratory failure Status: Acute (2) Acute intra-cranial hemorrhage Status: Acute (3) Altered level of consciousness Status: Acute (4) HCAP (healthcare-associated pneumonia) Status: Acute (5) Heart failure Status: Acute (6) History of CVA (cerebrovascular accident) Status: Acute (7) Hypercalcemia Status: Acute (8) Hypoxia Status: Acute (9) NSTEMI (non-ST elevated myocardial infarction) Status: Acute (10) Renal insufficiency Status: Acute (11) Right hemiplegia Status: Acute (12) Sepsis Status: Acute (13) Severe sepsis Status: Acute (14) Uncontrolled diabetes mellitus Status: Acute Not totally on comfort care, still getting PPN Intracranial hemorrhage of the roberto extending superiorly. Coma. Plan Should be going to facility today Will follow at intervals if still here Subjective None Objective Vital Signs Date Time Temp Pulse Resp B/P (MAP) Pulse Ox O2 Delivery O2 Flow Rate FiO2 12/01/18 02:41 76 176/101 12/01/18 02:41 98.3 10 96 Nasal Cannula 2.0 98.3 Intake and Output 12/01/18 06:59 Output Total 850 ml Balance -850 ml Output Urine Total 850 ml PHYSICAL EXAM Eyes closed, appears comfortable CN: not tested Muscle tone: spastic. Muscle strength: withdrawal reflexes only DTR: 1+ Plantar reflex: silent Gait: not examined in bed. Sensory exam: not testable. Cerebellar: not testable Review of Relevant I have reviewed the following items caesar (where applicable) has been applied. Labs Laboratory Tests Test 11/30/18 04:35 Creatinine 1.6 mg/dL (0.6-1.0) Estimated GFR (Cockcroft-Gault) 39.9 Microbiology 11/27/18 Blood Culture - Preliminary, Resulted NO GROWTH AFTER 3 DAYS Medications Current Medications Sodium Chloride 1,000 ml @ 1,000 mls/hr Q1H IV Last administered on 11/27/18at 09:27; Start 11/27/18 at 09:04; Stop 11/27/18 at 10:03; Status DC Albuterol/ Ipratropium (Duoneb) 3 ml 1X ONCE NEB Last administered on 11/27/18at 10:46; Start 11/27/18 at 09:15; Stop 11/27/18 at 09:22; Status DC Methylprednisolone Sodium Succinate (SOLU-Medrol 125MG VIAL) 125 mg 1X ONCE IV Last administered on 11/27/18at 09:34; Start 11/27/18 at 09:15; Stop 11/27/18 at 09:22; Status DC Sodium Chloride 1,000 ml @ 1,000 mls/hr 1X ONCE IV Last administered on at 09:27; Start 11/27/18 at 09:15; Stop 11/27/18 at 10:14; Status DC Acetaminophen (Tylenol Supp) 650 mg 1X ONCE DC Last administered on 11/27/18at 09:34; Start 11/27/18 at 09:15; Stop 11/27/18 at 09:22; Status DC Piperacillin Sod/ Tazobactam Sod 3.375 gm/Sodium Chloride 50 ml @ 100 mls/hr 1X ONCE IV Last administered on 11/27/18at 09:46; Start 11/27/18 at 09:30; Stop 11/27/18 at 09:59; Status DC Vancomycin HCl 250 ml @ 250 mls/hr 1X ONCE IV Last administered on 11/27/18at 10:17; Start 11/27/18 at 09:30; Stop 11/27/18 at 10:29; Status DC Aspirin (Aspirin Rectal Supp) 600 mg 1X STAT DC Last administered on 11/27/18at 10:17; Start 11/27/18 at 10:03; Stop 11/27/18 at 10:06; Status DC Sodium Chloride 1,000 ml @ 150 mls/hr Q6H40M IV ; Start 11/27/18 at 10:16; Stop 11/27/18 at 11:43; Status DC Labetalol HCl (Normodyne Iv Push) 10 mg 1X ONCE IVP Last administered on 11/27/18at 11:02; Start 11/27/18 at 11:00; Stop 11/27/18 at 11:01; Status DC Amino Acids/ Glycerin/ Electrolytes 1,000 ml @ 50 mls/hr Q20H IV Last administered on 11/30/18at 21:36; Start 11/27/18 at 12:30 Vancomycin HCl (Vanco Per Pharmacy) 1 each PRN DAILY PRN MC SEE COMMENTS Last administered on 11/28/18at 12:13; Start 11/27/18 at 11:45; Stop 11/29/18 at 17:33; Status DC Piperacillin Sod/ Tazobactam Sod (Zosyn Per Pharmacy) 1 each PRN DAILY PRN MC SEE COMMENTS; Start 11/27/18 at 11:45; Stop 11/29/18 at 17:33; Status DC Pantoprazole Sodium (PROTONIX VIAL for IV PUSH) 40 mg DAILYAC IVP Last administered on 11/30/18at 08:16; Start 11/28/18 at 07:30 Pantoprazole Sodium (PROTONIX VIAL for IV PUSH) 40 mg 1X ONCE IVP Last administered on 11/27/18at 12:10; Start 11/27/18 at 12:30; Stop 11/27/18 at 12:31; Status DC Heparin Sodium (Porcine) (Heparin Sodium) 5,000 unit Q8HRS SQ ; Start 11/27/18 at 14:00; Stop 11/27/18 at 11:57; Status DC Labetalol HCl (Normodyne Iv Push) 20 mg PRN Q2HR PRN IVP HYPERTENSION Last administered on 12/01/18at 02:41; Start 11/27/18 at 11:45 Acetaminophen (Tylenol) 500 mg PRN Q6HRS PRN PO MILD PAIN / TEMP; Start at 11:45 Acetaminophen (Tylenol Supp) 325 mg PRN Q6HRS PRN DC MILD PAIN / TEMP Last administered on 11/27/18at 19:47; Start 11/27/18 at 11:45 Ondansetron HCl (Zofran) 4 mg PRN Q6HRS PRN IV NAUSEA/VOMITING; Start 11/27/18 at 11:45 Morphine Sulfate (Morphine Sulfate) 1 mg PRN Q2HR PRN IV PAIN; Start 11/27/18 at 11:45 Albuterol/ Ipratropium (Duoneb) 3 ml RTQID NEB Last administered on 11/28/18at 07:44; Start 11/27/18 at 12:00; Stop 11/28/18 at 11:46; Status DC Piperacillin Sod/ Tazobactam Sod 2.25 gm/Sodium Chloride 50 ml @ 100 mls/hr Q6HRS IV Last administered on 11/29/18at 17:25; Start 11/27/18 at 17:00; Stop 11/29/18 at 17:33; Status DC Nicardipine HCl 50 mg/Sodium Chloride 250 ml @ 25 mls/hr CONT PRN IV SEE I/O RECORD Last administered on 11/28/18at 03:00; Start 11/27/18 at 12:00; Stop 11/29/18 at 11:38; Status DC Metoprolol Tartrate (Lopressor Vial) 10 mg Q6HRS IVP Last administered on 11/29/18at 05:46; Start 11/27/18 at 15:00; Stop 11/29/18 at 13:06; Status DC Vancomycin HCl (Vancomycin Random Level) 1 each 1X ONCE MC Last administered on 11/29/18at 12:58; Start 11/29/18 at 05:00; Stop 11/29/18 at 05:01; Status DC Scopolamine (Transderm-Scop) 1 patch Q3DAYS TD Last administered on 11/29/18at 13:41; Start 11/29/18 at 13:00 Clonidine HCl (Catapres Tts-1) 1 patch WEEKLY TD Last administered on 11/29/18at 13:41; Start 11/29/18 at 14:00 Morphine Sulfate (Roxanol Conc) 5 mg PRN Q3HRS PRN SL PAIN Last administered on 11/30/18at 22:51; Start 11/30/18 at 14:00 Lorazepam (Ativan Intensol) 1 mg PRN Q6HRS PRN SL ANXIETY / AGITATION; Start 11/30/18 at 14:00 Atropine Sulfate (Isopto Atropine) 1 drop PRN Q2HR PRN SL SECRETIONS Last administered on 11/30/18at 23:36; Start 11/30/18 at 20:15 Active Scripts Active Lorazepam Intensol (Lorazepam) 2 Mg/1 Ml Oral.conc 1 Mg SL PRN Q6HRS PRN 30 Days Feverall (Acetaminophen) 325 Mg Supp.rect 325 Mg DC PRN Q6HRS PRN 30 Days Morphine Sulfate 100 Mg/5 Ml Solution 5 Mg SL PRN Q3HRS PRN 30 Days Reported Eucerin Skin Calming (Emollient Combination No.69) 396 Gm Cream..g. 396 Gm TP HS Vitals/I & O Vital Sign - Last 24 Hours 11/30/18 11/30/18 11/30/18 11/30/18 10:49 12:24 15:00 19:00 Temp 97.8 97.8 98.7 97.8 97.8 98.7 Pulse 75 75 74 79 Resp 10 10 10 B/P (MAP) 170/105 (126) 170/105 178/104 (128) 183/107 (132) Pulse Ox 96 95 94 O2 Delivery Nasal Cannula Nasal Cannula Nasal Cannula O2 Flow Rate 2.0 2.0 2.0 11/30/18 11/30/18 11/30/18 11/30/18 20:05 21:36 22:51 23:00 Temp 98.6 98.6 Pulse 77 Resp 11 12 B/P (MAP) 183/107 194/110 (138) Pulse Ox 91 O2 Delivery Nasal Cannula Nasal Cannula Nasal Cannula O2 Flow Rate 2.0 2.0 2.0 11/30/18 12/01/18 12/01/18 12/01/18 23:41 00:07 02:41 02:41 Temp 98.3 98.3 Pulse 63 76 76 Resp 12 10 B/P (MAP) 194/110 176/101 (126) 176/101 Pulse Ox 95 96 O2 Delivery Nasal Cannula Nasal Cannula O2 Flow Rate 2.0 2.0 Intake and Output 0 11/30/18 11/30/18 12/01/18 14:59 22:59 06:59 Output Total 350 ml 500 ml Balance -350 ml -500 ml MONROE BUSH MD Dec 01, 2018 08:35
--- NOTE | 2018-12-01 09:10 | NUR ---
SW following pt. SW received a return call from [facility]- they declined to accept pt due to 'high acuity'. Spoke with pt's daughter, Lena about returning back to [facility] and daughter states 'that place is awful and I don't want my mother to return there, they are really awful'. Lena requested an eval at [facility] after going over more options. Referral faxed and discussed with Cyndee at [facility]. Awaiting on acceptance.
[2018-12-01] MEDS: ATROPINE 1% OPHTH SOLUTION 5ML BOTTLE. SL PRN (09:18)
[2018-12-01] MEDS: PANTOPRAZOLE IV PUSH 40 MG VIAL. IVP SCH (09:18)
[2018-12-01 11:00] VITALS: BP 179/96
[2018-12-01] MEDS ORDERED: ATRO2DRO3 SL (11:35)
--- NOTE | 2018-12-01 11:37 | PDOC ---
PROGRESS NOTES Chief Complaint Chief Complaint Parenchymal hemorrhage to roberto, midbrain and right thalamus Possible hydrocephalus Non-STEMI History of CVA �3 with right hand contracture Hypertensive with recent crisis Hyperlipidemia Type 2 Diabetes Dementia Severe sepsis with DUANE Functional quadriplegia Hypoxemic respiratory failure Lactic acidosis Comatose History of Present Illness History of Present Illness Ms Umanzor is a 58yo F w/ PMHx left hemispheric stroke with aphasia and right hemiplegia, HTN, HLD, DM2, GERD, Dementia, Bipolar disorder who is a termite exterminator helper resident of SNF who was admitted with altered level of consciousness, 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 Transferred from ICU on 11/29/18. Last night had increased secretions, given atropine SL with good effect. Seen bedside. No pupillary response, Positive babinski sign and imaging reviewed with daughter bedside. She is breathing spontaneously with NCO2 in place, right arm contracted, does not awaken to painful stimuli. VS stable. Long discussion bedside about extremely poor prognosis with palliative care nursing regarding discharge plan to SNF with hospice. Patient is DNR. 11/29/18 Pt seen/examined at beside Pt's pupils are nonreactive bilaterally + Babinski sign bilaterally DW family regarding hospice/palliative care Pt is currently DNR 11/28/18 Pt seen/examined in the ICU Pt's pupils are non reactive bilaterally and + Babinski sign bilaterally DW family regarding pt's mental status Pt is currently DNR Chart Reviewed Vitals Vitals Vital Signs Date Time Temp Pulse Resp B/P (MAP) Pulse Ox O2 Delivery O2 Flow Rate FiO2 12/01/18 09:18 170/98 12/01/18 08:00 Nasal Cannula 2.0 12/01/18 07:00 99.5 72 10 100 99.5 Physical Exam Physical Exam General: Not responsive Lungs: Normal air movement, Other (crackles) Heart: S1S2, regular rhythm, no thrills, no rubs, no gallops, slightly tachycardic Breasts: Normal, Rt breast nml w/o mass, Lt breast nml w/o mass, Nipples normal Abdomen: Normal bowel sounds, Soft, No tenderness, No hepatosplenomegaly, No masses Neuro: Pupils non-reactive to light bilaterally, + Babinski sign bilaterally Extremities: No clubbing, Other (chronic rt hand contracture ) Skin: Other (senile skin turgor) Assessment and Plan Assessmemt and Plan Problems Medical Problems: (1) Acute hypoxemic respiratory failure Status: Acute (2) Acute intra-cranial hemorrhage Status: Acute (3) Altered level of consciousness Status: Acute (4) HCAP (healthcare-associated pneumonia) Status: Acute (5) Heart failure Status: Acute (6) History of CVA (cerebrovascular accident) Status: Acute (7) Hypercalcemia Status: Acute (8) Hypoxia Status: Acute (9) NSTEMI (non-ST elevated myocardial infarction) Status: Acute (10) Renal insufficiency Status: Acute (11) Right hemiplegia Status: Acute (12) Sepsis Status: Acute (13) Severe sepsis Status: Acute (14) Uncontrolled diabetes mellitus Status: Acute Comment Review of Relevant I have reviewed the following items caesar (where applicable) has been applied. Labs Laboratory Tests Test 11/30/18 04:35 Creatinine 1.6 mg/dL (0.6-1.0) Estimated GFR (Cockcroft-Gault) 39.9 Microbiology 11/27/18 Blood Culture - Preliminary, Resulted NO GROWTH AFTER 4 DAYS Medications Current Medications Sodium Chloride 1,000 ml @ 1,000 mls/hr Q1H IV Last administered on 11/27/18at 09:27; Start 11/27/18 at 09:04; Stop 11/27/18 at 10:03; Status DC Albuterol/ Ipratropium (Duoneb) 3 ml 1X ONCE NEB Last administered on 11/27/18at 10:46; Start 11/27/18 at 09:15; Stop 11/27/18 at 09:22; Status DC Methylprednisolone Sodium Succinate (SOLU-Medrol 125MG VIAL) 125 mg 1X ONCE IV Last administered on 11/27/18at 09:34; Start 11/27/18 at 09:15; Stop 11/27/18 at 09:22; Status DC Sodium Chloride 1,000 ml @ 1,000 mls/hr 1X ONCE IV Last administered on 11/27/18at 09:27; Start 11/27/18 at 09:15; Stop 11/27/18 at 10:14; Status DC Acetaminophen (Tylenol Supp) 650 mg 1X ONCE NJ Last administered on 11/27/18at 09:34; Start 11/27/18 at 09:15; Stop 11/27/18 at 09:22; Status DC Piperacillin Sod/ Tazobactam Sod 3.375 gm/Sodium Chloride 50 ml @ 100 mls/hr 1X ONCE IV Last administered on 11/27/18at 09:46; Start 11/27/18 at 09:30; Stop 11/27/18 at 09:59; Status DC Vancomycin HCl 250 ml @ 250 mls/hr 1X ONCE IV Last administered on 11/27/18at 10:17; Start 11/27/18 at 09:30; Stop 11/27/18 at 10:29; Status DC Aspirin (Aspirin Rectal Supp) 600 mg 1X STAT NJ Last administered on 11/27/18at 10:17; Start 11/27/18 at 10:03; Stop 11/27/18 at 10:06; Status DC Sodium Chloride 1,000 ml @ 150 mls/hr Q6H40M IV ; Start 11/27/18 at 10:16; Stop 11/27/18 at 11:43; Status DC Labetalol HCl (Normodyne Iv Push) 10 mg 1X ONCE IVP Last administered on 11/27/18at 11:02; Start 11/27/18 at 11:00; Stop 11/27/18 at 11:01; Status DC Amino Acids/ Glycerin/ Electrolytes 1,000 ml @ 50 mls/hr Q20H IV Last administered on 11/30/18at 21:36; Start 11/27/18 at 12:30; Stop 12/01/18 at 11:34; Status DC Vancomycin HCl (Vanco Per Pharmacy) 1 each PRN DAILY PRN MC SEE COMMENTS Last administered on 11/28/18at 12:13; Start 11/27/18 at 11:45; Stop 11/29/18 at 17:33; Status DC Piperacillin Sod/ Tazobactam Sod (Zosyn Per Pharmacy) 1 each PRN DAILY PRN MC SEE COMMENTS; Start 11/27/18 at 11:45; Stop 11/29/18 at 17:33; Status DC Pantoprazole Sodium (PROTONIX VIAL for IV PUSH) 40 mg DAILYAC IVP Last administered on 12/01/18at 09:18; Start 11/28/18 at 07:30 Pantoprazole Sodium (PROTONIX VIAL for IV PUSH) 40 mg 1X ONCE IVP Last administered on 11/27/18at 12:10; Start 11/27/18 at 12:30; Stop 11/27/18 at 12:31; Status DC Heparin Sodium (Porcine) (Heparin Sodium) 5,000 unit Q8HRS SQ ; Start 11/27/18 at 14:00; Stop 11/27/18 at 11:57; Status DC Labetalol HCl (Normodyne Iv Push) 20 mg PRN Q2HR PRN IVP HYPERTENSION Last admi nistered on 12/01/18at 09:18; Start 11/27/18 at 11:45 Acetaminophen (Tylenol) 500 mg PRN Q6HRS PRN PO MILD PAIN / TEMP; Start at 11:45 Acetaminophen (Tylenol Supp) 325 mg PRN Q6HRS PRN NJ MILD PAIN / TEMP Last administered on 11/27/18at 19:47; Start 11/27/18 at 11:45 Ondansetron HCl (Zofran) 4 mg PRN Q6HRS PRN IV NAUSEA/VOMITING; Start 11/27/18 at 11:45 Morphine Sulfate (Morphine Sulfate) 1 mg PRN Q2HR PRN IV PAIN; Start 11/27/18 at 11:45 Albuterol/ Ipratropium (Duoneb) 3 ml RTQID NEB Last administered on 11/28/18at 07:44; Start 11/27/18 at 12:00; Stop 11/28/18 at 11:46; Status DC Piperacillin Sod/ Tazobactam Sod 2.25 gm/Sodium Chloride 50 ml @ 100 mls/hr Q6HRS IV Last administered on 11/29/18at 17:25; Start 11/27/18 at 17:00; Stop 11/29/18 at 17:33; Status DC Nicardipine HCl 50 mg/Sodium Chloride 250 ml @ 25 mls/hr CONT PRN IV SEE I/O RECORD Last administered on 11/28/18at 03:00; Start 11/27/18 at 12:00; Stop 11/29/18 at 11:38; Status DC Metoprolol Tartrate (Lopressor Vial) 10 mg Q6HRS IVP Last administered on 11/29/18at 05:46; Start 11/27/18 at 15:00; Stop 11/29/18 at 13:06; Status DC Vancomycin HCl (Vancomycin Random Level) 1 each 1X ONCE MC Last administered on 11/29/18at 12:58; Start 11/29/18 at 05:00; Stop 11/29/18 at 05:01; Status DC Scopolamine (Transderm-Scop) 1 patch Q3DAYS TD Last administered on 11/29/18 13:41; Start 11/29/18 at 13:00 Clonidine HCl (Catapres Tts-1) 1 patch WEEKLY TD Last administered on 11/29/18 13:41; Start 11/29/18 at 14:00 Morphine Sulfate (Roxanol Conc) 5 mg PRN Q3HRS PRN SL PAIN Last administered on 11/30/18 22:51; Start 11/30/18 at 14:00 Lorazepam (Ativan Intensol) 1 mg PRN Q6HRS PRN SL ANXIETY / AGITATION; Start 11/30/18 at 14:00 Atropine Sulfate (Isopto Atropine) 1 drop PRN Q2HR PRN SL SECRETIONS Last administered on 12/01/18 09:18; Start 11/30/18 at 20:15 Active Scripts Active Atropine Sulfate 2 Ml Drops 1 Drop SL PRN Q2HR PRN 30 Days Lorazepam Intensol (Lorazepam) 2 Mg/1 Ml Oral.conc 1 Mg SL PRN Q6HRS PRN 30 Days Feverall (Acetaminophen) 325 Mg Supp.rect 325 Mg NJ PRN Q6HRS PRN 30 Days Morphine Sulfate 100 Mg/5 Ml Solution 5 Mg SL PRN Q3HRS PRN 30 Days Reported Eucerin Skin Calming (Emollient Combination No.69) 396 Gm Cream..g. 396 Gm TP HS Vitals/I & O Vital Sign - Last 24 Hours 11/30/18 11/30/18 11/30/18 11/30/18 12:24 15:00 19:00 20:05 Temp 97.8 98.7 97.8 98.7 Pulse 75 74 79 Resp 10 10 B/P (MAP) 170/105 178/104 (128) 183/107 (132) Pulse Ox 95 94 O2 Delivery Nasal Cannula Nasal Cannula Nasal Cannula O2 Flow Rate 2.0 2.0 2.0 11/30/18 11/30/18 11/30/18 11/30/18 21:36 22:51 23:00 23:41 Temp 98.6 98.6 Pulse 77 63 Resp 11 12 B/P (MAP) 183/107 194/110 (138) 194/110 Pulse Ox 91 O2 Delivery Nasal Cannula Nasal Cannula O2 Flow Rate 2.0 2.0 12/01/18 12/01/18 12/01/18 12/01/18 00:07 02:41 02:41 07:00 Temp 98.3 99.5 98.3 99.5 Pulse 76 76 72 Resp 12 10 10 B/P (MAP) 176/101 (126) 176/101 170/98 (122) Pulse Ox 95 96 100 O2 Delivery Nasal Cannula Nasal Cannula Nasal Cannula O2 Flow Rate 2.0 2.0 2.0 12/01/18 12/01/18 08:00 09:18 B/P (MAP) 170/98 O2 Delivery Nasal Cannula O2 Flow Rate 2.0 Intake and Output 11/30/18 11/30/18 12/01/18 15:00 23:00 07:00 Output Total 350 ml 500 ml Balance -350 ml -500 ml Nutrition Consultation Dietary Evaluation: Recommendations by RD: PPN/TPN Comments: REC continue PPN at this time If agressive care REC tube feedings Expected Outcomes/Goals: to be determined: comfort vs TF Malnutrition Findings: Food and Nutrition Intake (Mod: <75% est energy req 7days Food and Nutrition Intake (Sev: <50% est energy req 5days Weight Status: Underweight YASMIN JAY MD Dec 01, 2018 11:37
[2018-12-01] MEDS: ACETAMINOPHEN 650 MG SUPP.RECT. PR PRN (12:34)
--- NOTE | 2018-12-01 13:20 | NUR ---
SW following pt. Spoke with [facility]ney again at [facility] and they are coming to do a bedside eval at 1430. Pt is also accepted at [facility]. Discussed with pt's daughter, Lena would like to keep [facility] as first option. Discussed with RN and physician. Will continue to follow.
[2018-12-01 15:00] VITALS: BP 144/83
[2018-12-01 19:00] VITALS: BP 157/95
[2018-12-01 23:00] VITALS: BP 163/96
[2018-12-02 03:00] VITALS: BP 176/101
[2018-12-02 07:00] VITALS: BP 185/103
--- NOTE | 2018-12-02 09:21 | PDOC ---
PROGRESS NOTES Chief Complaint Chief Complaint DISCHARGE DX Parenchymal hemorrhage to roberto, midbrain and right thalamus Prominent acute parenchymal hematoma expanding the roberto, right greater than left aspect of the midbrain and extending to involve the right thalamus. Mass effect associated with this hemorrhage with effacement of the fourth more so than third ventricles and there is more pronounced dilatation of the lateral ventricular system relative to the 2018 comparison which is concerning for developing hydrocephalus. 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 Transferred from ICU on 11/29/18. Last night had increased secretions, given atropine SL with good effect. Seen bedside. No pupillary response, Positive babinski sign and imaging reviewed with daughter bedside. She is breathing spontaneously with NCO2 in place, right arm contracted, does not awaken to painful stimuli. VS stable. Long discussion bedside about extremely poor prognosis with palliative care nursing regarding discharge plan to SNF with hospice. Patient is DNR. 12/02/18 Pt seen/examined at beside Pt's pupils are nonreactive bilaterally + Babinski sign bilaterally DW family regarding hospice/palliative care Pt is currently DNR HOSPICE INTAKE TODAY AT [facility] D/C PLANNING 33 MIN 11/28/18 Pt seen/examined in the ICU Pt's pupils are non reactive bilaterally and + Babinski sign bilaterally DW family regarding pt's mental status Pt is currently DNR Chart Reviewed Vitals Vitals Vital Signs Date Time Temp Pulse Resp B/P (MAP) Pulse Ox O2 Delivery O2 Flow Rate FiO2 12/02/18 07:00 103.3 94 20 185/103 (130) 91 Nasal Cannula 2.0 103.3 Physical Exam Physical Exam General: Not responsive Lungs: Normal air movement, Other (crackles) Heart: S1S2, regular rhythm, no thrills, no rubs, no gallops, slightly tachycardic Breasts: Normal, Rt breast nml w/o mass, Lt breast nml w/o mass, Nipples normal Abdomen: Normal bowel sounds, Soft, No tenderness, No hepatosplenomegaly, No masses Neuro: Pupils non-reactive to light bilaterally, + Babinski sign bilaterally Extremities: No clubbing, Other (chronic rt hand contracture ) Skin: Other (senile skin turgor) Extremities: No cyanosis Labs LABS PATIENT: SALUD SEPULVEDA ACCT: [id number] LOC: [address] [place] [address] U: [id number] AGE/SX: 58/F ROOM: 563 RE11/27/[address]: JENNY BUSH MD : 1960 BED: 1 DIS: STATUS: ADM IN TLOC: SPEC #: [id number] CHRISTOPHER: 11/27/18 STATUS: COMP REQ #: [id number] RECD: 11/27/[address]: RYAN FLORES MD SOURCE: BLOOD ENTR: 11/27/[address]: JUDAH,STAFF [facility]: ORDERED: BCULT Procedure Result BLOOD CULTURE Final NO GROWTH AFTER 5 DAYS STUDY: CT head without contrast INDICATION: Altered level of consciousness. Hypoxia. COMPARISON: Most recent CT head from 12/06/2017 TECHNIQUE: Axial CT imaging through the head without the use of intravenous contrast. Sagittal and coronal reformats were obtained. FINDINGS: Acute parenchymal hematoma expanding the right more so than left aspect of the midbrain as well as expanding the roberto with hemorrhage extending up into the region of the right thalamus. Mass effect associated with this hemorrhage effaces a portion of the third ventricle as well as effaces the fourth ventricle and there is more pronounced dilatation of the lateral ventricles relative to the 2018 comparison study suggestive of developing hydrocephalus. Foci of hemorrhage are seen on the left aspect of the effaced fourth ventricle, image 10 series 2 though it is difficult to discern if this hemorrhage is within the parenchyma or within the ventricle itself. No acute hemorrhage seen elsewhere. Extensive low-attenuation throughout the bihemispheric subcortical/periventricular white matter as can be seen in the setting of advanced chronic microvascular ischemia. Sulcal crowding at the cerebral apex is not significantly different from the 2018 comparison. There is no midline shift. Redemonstrated remote bilateral cerebellar hemisphere infarcts as well as a prominent area of encephalomalacia at the high aspect of the left frontal lobe. Parenchymal volume loss as well as intracranial atherosclerotic calcifications. IMPRESSION: 1. Prominent acute parenchymal hematoma expanding the roberto, right greater than left aspect of the midbrain and extending to involve the right thalamus. Mass effect associated with this hemorrhage with effacement of the fourth more so than third ventricles and there is more pronounced dilatation of the lateral ventricular system relative to the 2018 comparison which is concerning for developing hydrocephalus. Smaller foci of hemorrhage along the left lateral aspect of the fourth ventricle may be parenchymal in location or could potentially be within the ventricular system. No acute intracranial hemorrhage seen elsewhere. The underlying cause of this hemorrhage is uncertain but the most likely consideration based on location would be spontaneous related to underlying hypertension. Hemorrhagic transformation of an infarct or hemorrhage within a mass would be considered less likely. Aneurysm rupture seems unlikely as well due to the parenchymal location. 2. Redemonstrated prominent areas of encephalomalacia involving both cerebellar hemispheres as well as the upper aspect of the left frontal lobe. White matter findings typical of severe chronic microvascular ischemic change. Intracranial atherosclerotic calcifications and parenchymal volume loss. FOR INTERNAL CODING PURPOSES Assessment and Plan Assessmemt and Plan Problems Medical Problems: (1) Acute hypoxemic respiratory failure Status: Acute (2) Acute intra-cranial hemorrhage Status: Acute (3) Altered level of consciousness Status: Acute (4) HCAP (healthcare-associated pneumonia) Status: Acute (5) Heart failure Status: Acute (6) History of CVA (cerebrovascular accident) Status: Acute (7) Hypercalcemia Status: Acute (8) Hypoxia Status: Acute (9) NSTEMI (non-ST elevated myocardial infarction) Status: Acute (10) Renal insufficiency Status: Acute (11) Right hemiplegia Status: Acute (12) Sepsis Status: Acute (13) Severe sepsis Status: Acute (14) Uncontrolled diabetes mellitus Status: Acute Comment Review of Relevant I have reviewed the following items caesar (where applicable) has been applied. Labs Microbiology 11/27/18 Blood Culture - Preliminary, Resulted NO GROWTH AFTER 4 DAYS Medications Current Medications Sodium Chloride 1,000 ml @ 1,000 mls/hr Q1H IV Last administered on 11/27/18at 09:27; Start 11/27/18 at 09:04; Stop 11/27/18 at 10:03; Status DC Albuterol/ Ipratropium (Duoneb) 3 ml 1X ONCE NEB Last administered on at 10:46; Start 11/27/18 at 09:15; Stop 11/27/18 at 09:22; Status DC Methylprednisolone Sodium Succinate (SOLU-Medrol 125MG VIAL) 125 mg 1X ONCE IV Last administered on 11/27/18at 09:34; Start 11/27/18 at 09:15; Stop 11/27/18 at 09:22; Status DC Sodium Chloride 1,000 ml @ 1,000 mls/hr 1X ONCE IV Last administered on 11/27/18at 09:27; Start 11/27/18 at 09:15; Stop 11/27/18 at 10:14; Status DC Acetaminophen (Tylenol Supp) 650 mg 1X ONCE AL Last administered on 11/27/18at 09:34; Start 11/27/18 at 09:15; Stop 11/27/18 at 09:22; Status DC Piperacillin Sod/ Tazobactam Sod 3.375 gm/Sodium Chloride 50 ml @ 100 mls/hr 1X ONCE IV Last administered on 11/27/18at 09:46; Start 11/27/18 at 09:30; Stop 11/27/18 at 09:59; Status DC Vancomycin HCl 250 ml @ 250 mls/hr 1X ONCE IV Last administered on 11/27/18at 10:17; Start 11/27/18 at 09:30; Stop 11/27/18 at 10:29; Status DC Aspirin (Aspirin Rectal Supp) 600 mg 1X STAT AL Last administered on 11/27/18at 10:17; Start 11/27/18 at 10:03; Stop 11/27/18 at 10:06; Status DC Sodium Chloride 1,000 ml @ 150 mls/hr Q6H40M IV ; Start 11/27/18 at 10:16; Stop 11/27/18 at 11:43; Status DC Labetalol HCl (Normodyne Iv Push) 10 mg 1X ONCE IVP Last administered on 11/27/18at 11:02; Start 11/27/18 at 11:00; Stop 11/27/18 at 11:01; Status DC Amino Acids/ Glycerin/ Electrolytes 1,000 ml @ 50 mls/hr Q20H IV Last administered on 11/30/18at 21:36; Start 11/27/18 at 12:30; Stop 12/01/18 at 11:34; Status DC Vancomycin HCl (Vanco Per Pharmacy) 1 each PRN DAILY PRN MC SEE COMMENTS Last administered on 11/28/18at 12:13; Start 11/27/18 at 11:45; Stop 11/29/18 at 17:33; Status DC Piperacillin Sod/ Tazobactam Sod (Zosyn Per Pharmacy) 1 each PRN DAILY PRN MC SEE COMMENTS; Start 11/27/18 at 11:45; Stop 11/29/18 at 17:33; Status DC Pantoprazole Sodium (PROTONIX VIAL for IV PUSH) 40 mg DAILYAC IVP Last administered on 12/01/18at 09:18; Start 11/28/18 at 07:30 Pantoprazole Sodium (PROTONIX VIAL for IV PUSH) 40 mg 1X ONCE IVP Last administered on 11/27/18at 12:10; Start 11/27/18 at 12:30; Stop 11/27/18 at 12:31; Status DC Heparin Sodium (Porcine) (Heparin Sodium) 5,000 unit Q8HRS SQ ; Start 11/27/18 at 14:00; Stop 11/27/18 at 11:57; Status DC Labetalol HCl (Normodyne Iv Push) 20 mg PRN Q2HR PRN IVP HYPERTENSION Last administered on 12/01/18at 12:35; Start 11/27/18 at 11:45 Acetaminophen (Tylenol) 500 mg PRN Q6HRS PRN PO MILD PAIN / TEMP; Start 11/27/18 at 11:45 Acetaminophen (Tylenol Supp) 325 mg PRN Q6HRS PRN AL MILD PAIN / TEMP Last administered on 11/27/18at 19:47; Start 11/27/18 at 11:45 Ondansetron HCl (Zofran) 4 mg PRN Q6HRS PRN IV NAUSEA/VOMITING; Start 11/27/18 at 11:45 Morphine Sulfate (Morphine Sulfate) 1 mg PRN Q2HR PRN IV PAIN; Start 11/27/18 at 11:45 Albuterol/ Ipratropium (Duoneb) 3 ml RTQID NEB Last administered on 11/28/18at 07:44; Start 11/27/18 at 12:00; Stop 11/28/18 at 11:46; Status DC Piperacillin Sod/ Tazobactam Sod 2.25 gm/Sodium Chloride 50 ml @ 100 mls/hr Q6HRS IV Last administered on 11/29/18at 17:25; Start 11/27/18 at 17:00; Stop 11/29/18 at 17:33; Status DC Nicardipine HCl 50 mg/Sodium Chloride 250 ml @ 25 mls/hr CONT PRN IV SEE I/O RECORD Last administered on 11/28/18at 03:00; Start 11/27/18 at 12:00; Stop 11/29/18 at 11:38; Status DC Metoprolol Tartrate (Lopressor Vial) 10 mg Q6HRS IVP Last administered on 11/29/18at 05:46; Start 11/27/18 at 15:00; Stop 11/29/18 at 13:06; Status DC Vancomycin HCl (Vancomycin Random Level) 1 each 1X ONCE MC Last administered on 11/29/18at 12:58; Start 11/29/18 at 05:00; Stop 11/29/18 at 05:01; Status DC Scopolamine (Transderm-Scop) 1 patch Q3DAYS TD Last administered on 11/29/18at 13:41; Start 11/29/18 at 13:00 Clonidine HCl (Catapres Tts-1) 1 patch WEEKLY TD Last administered on 11/29/18 13:41; Start 11/29/18 at 14:00 Morphine Sulfate (Roxanol Conc) 5 mg PRN Q3HRS PRN SL PAIN Last administered on 11/30/18at 22:51; Start 11/30/18 at 14:00 Lorazepam (Ativan Intensol) 1 mg PRN Q6HRS PRN SL ANXIETY / AGITATION; Start 11/30/18 at 14:00 Atropine Sulfate (Isopto Atropine) 1 drop PRN Q2HR PRN SL SECRETIONS Last administered on 12/01/18at 09:18; Start 11/30/18 at 20:15 Acetaminophen (Tylenol Supp) 650 mg PRN Q6HRS PRN AL MILD PAIN / TEMP (2ND CHOICE) Last administered on 12/01/18at 12:35; Start 12/01/18 at 11:45 Active Scripts Active Atropine Sulfate 2 Ml Drops 1 Drop SL PRN Q2HR PRN 30 Days Lorazepam Intensol (Lorazepam) 2 Mg/1 Ml Oral.conc 1 Mg SL PRN Q6HRS PRN 30 Days Feverall (Acetaminophen) 325 Mg Supp.rect 325 Mg AL PRN Q6HRS PRN 30 Days Morphine Sulfate 100 Mg/5 Ml Solution 5 Mg SL PRN Q3HRS PRN 30 Days Reported Eucerin Skin Calming (Emollient Combination No.69) 396 Gm Cream..g. 396 Gm TP HS Vitals/I & O Vital Sign - Last 24 Hours 12/01/18 12/01/18 12/01/18 12/01/18 08:00 09:18 11:00 12:35 Temp 99.9 99.9 Pulse 71 72 Resp 17 B/P (MAP) 170/98 179/96 (123) 170/98 Pulse Ox 94 O2 Delivery Nasal Cannula Nasal Cannula O2 Flow Rate 2.0 2.0 12/01/18 12/01/18 12/01/18 12/01/18 15:00 19:00 20:00 23:00 Temp 99.3 100.9 99.4 99.3 100.9 99.4 Pulse 72 79 81 Resp 17 17 17 B/P (MAP) 144/83 (103) 157/95 (115) 163/96 (118) Pulse Ox 100 94 93 O2 Delivery Nasal Cannula Nasal Cannula Nasal Cannula Nasal Cannula O2 Flow Rate 2.0 2.0 2.0 2.0 12/02/18 12/02/18 03:00 07:00 Temp 98.9 103.3 98.9 103.3 Pulse 83 94 Resp 17 20 B/P (MAP) 176/101 (126) 185/103 (130) Pulse Ox 92 91 O2 Delivery Nasal Cannula Nasal Cannula O2 Flow Rate 2.0 2.0 Intake and Output 12/01/18 12/02/18 12/02/18 17:00 01:00 09:00 Intake Total 0 ml 0 ml Output Total 650 ml 400 ml Balance -650 ml -400 ml Nutrition Consultation Dietary Evaluation: Recommendations by RD: PPN/TPN Comments: REC continue PPN at this time If agressive care REC tube feedings Expected Outcomes/Goals: to be determined: comfort vs TF Malnutrition Findings: Food and Nutrition Intake (Mod: <75% est energy req 7days Food and Nutrition Intake (Sev: <50% est energy req 5days Weight Status: Underweight MYESHA NUNEZ MD Dec 02, 2018 09:21
--- NOTE | 2018-12-02 09:25 | NUR ---
BRENDA following pt. Pt has been accepted at [facility]. Orders faxed to [facility] and pt will transport via facility arranged stretcher van at [phone]. [facility] to arrange hospice services at the facility. BRENDA left a voice mail to pt's daughter, Lena regarding dc plan. Packet on chart and discussed with RN.
[2018-12-02] MEDS: ACETAMINOPHEN 650 MG SUPP.RECT. PR PRN (09:46)
[2018-12-02] MEDS: PANTOPRAZOLE IV PUSH 40 MG VIAL. IVP SCH (09:48)
[2018-12-02] MEDS: SCOPOLAMINE 1.5MG PATCH. TD SCH (09:48)
== END 2018-12-02 10:20 | disposition hospice, home (50) | DRG 871 ==
LOC: ER 08:59 → 1 WEST ICU 09:28 → 5 SOUTH 11-29 08:16
PROVIDERS: ADMIT Internal Medicine; ATTEND Internal Medicine
DX: A41.9 Sepsis, unspecified organism (principal); I61.3 Nontraumatic intracerebral hemorrhage in brain stem; I21.4 Non-ST elevation (NSTEMI) myocardial infarction; R53.2 Functional quadriplegia; J96.91 Respiratory failure, unspecified with hypoxia; J18.8 Other pneumonia, unspecified organism; I69.351 Hemiplegia and hemiparesis following cerebral infarction affecting right dominant side; E87.0 Hyperosmolality and hypernatremia; E87.2 Acidosis; G91.9 Hydrocephalus, unspecified; N17.9 Acute kidney failure, unspecified; E78.00 Pure hypercholesterolemia, unspecified; I11.0 Hypertensive heart disease with heart failure; I50.9 Heart failure, unspecified; E78.5 Hyperlipidemia, unspecified; K21.9 Gastro-esophageal reflux disease without esophagitis; F03.90 Unspecified dementia, unspecified severity, without behavioral disturbance, psychotic disturbance, mood disturbance, and anxiety; F31.9 Bipolar disorder, unspecified; Z66 Do not resuscitate; Y95 Nosocomial condition; R65.20 Severe sepsis without septic shock; E11.65 Type 2 diabetes mellitus with hyperglycemia; Z51.5 Encounter for palliative care; G93.89 Other specified disorders of brain; I67.2 Cerebral atherosclerosis; R04.0 Epistaxis; Z79.899 Other long term (current) drug therapy; Z74.01 Bed confinement status; Z99.3 Dependence on wheelchair; Z93.1 Gastrostomy status; Z80.9 Family history of malignant neoplasm, unspecified; Z83.3 Family history of diabetes mellitus
CPT/HCPCS: 36415; 36600; 70450; 71045; 80053; 81001; 82550; 82565; 82805; 83605; 83690; 83735; 83880; 84484; 85007; 85025; 85610; 87040; 87641; 87804; 93005; 94640; 96365; 96375; 99292; C9113; J2543; J2930; J3370; J3490; J7030; J7050; J7620; 99291-25; G0378